=== PATIENT | female | born 1960 | race Caucasian/White ===

== ENCOUNTER 2016-02-16 01:27 | Emergency (ER) | payer MEDICAID ==
[2016-02-16 02:27] LABS: ABSOLUTE BASOPHILS # (AUTO) 0.1 10^3/uL (0.0-0.2); ABSOLUTE EOSINOPHILS # (AUTO) 0.2 10^3/uL (0.0-0.6); ABSOLUTE LYMPHOCYTES (AUTO) 0.9 10^3/uL (0.5-4.7); ABSOLUTE MONOCYTES (AUTO) 0.4 10^3/uL (0.1-1.4); ABSOLUTE NEUT (AUTO) 3.7 10^3/uL (1.7-8.2); BASOPHILS % (AUTO) 1.5 % (0-2); EOSINOPHILS % (AUTO) 3.3 % (0-6); HEMATOCRIT 34.6 % (36.0-47.0); HEMOGLOBIN 11.5 g/dL (12.0-15.5); HGB HCT DIFFERENCE -0.1; LYMPHOCYTES % (AUTO) 16.4 % (13-45); MEAN CORPUSCULAR HEMOGLOBIN 28.3 pg (27.0-33.4); MEAN CORPUSCULAR HGB CONC 33.3 g/dL (32.0-36.0); MEAN CORPUSCULAR VOLUME 85 fl (80-97); MONOCYTES % (AUTO) 8.1 % (3-13); RED BLOOD COUNT 4.07 10^6/uL (3.72-5.28); RED CELL DISTRIBUTION WIDTH 14.4 % (11.5-14.0); SEGMENTED NEUTROPHILS % (AUTO) 70.7 % (42-78); WHITE BLOOD COUNT 5.3 10^3/uL (4.0-10.5)
--- NOTE | 2016-02-16 02:30 | ER Document Report ---
ED General - General Chief Complaint: High Blood Pressure Stated Complaint: BLOOD PRESSURE PROBLEM Mode of Arrival: Ambulatory Information source: Patient Notes: Patient presents to the emergency department with complaints of blood pressure being up and reports she just had surgery. She reports she did not take her blood pressure at home but when she woke up her ear was pounding and her chest felt like it was pounding. This is how she usually feels when she has high blood pressure. Patient reports on February 11, 2016 she had the base of her left kidney partially removed via robotic surgery, due to a mass. She reports they thought it was cancer. She reports since that time she's felt shortness of breath especially when she walked. She denies fever vomiting diarrhea. She denies chest pain. She reports generalized abdominal pain that has not changed since she had the surgery. She also reports she thought she had a little bit of blood in her urine when she voided because she noted some pink on the toilet paper after she wiped. TRAVEL OUTSIDE OF THE [place] IN LAST 30 DAYS: No - HPI Onset: Other - 3 days Onset/Duration: Persistent Quality of pain: Achy Severity: Moderate Pain Level: 3 Associated symptoms: Shortness of breath Exacerbated by: Denies Relieved by: Denies Similar symptoms previously: No Recently seen / treated by doctor: Yes Past Medical History - General Information source: Patient - Social History Smoking Status: Unknown if Ever Smoked Cigarette use (# per day): No Frequency of alcohol use: None Drug Abuse: None Family History: None Patient has suicidal ideation: No Patient has homicidal ideation: No - Past Medical History Cardiac Medical History: Reports: Hx Hypertension Neurological Medical History: Reports: Hx Cerebrovascular Accident - 2007 Psychiatric Medical History: Reports: Hx Depression Past Surgical History: Reports: Hx Section - 1985, 2007, Hx Gynecologic Surgery - uterine ablasion/bladder tuck, Hx Kidney (Renal Surgery) - feb 11, 2016 partial kidney removed due to mass, Hx Orthopedic Surgery - Total knee replacement last month, Dr Josephine Vickers - Immunizations Hx Diphtheria, Pertussis, Tetanus Vaccination: Yes Hx Pneumococcal Vaccination: 02/09/00 Review of Systems - Review of Systems Notes: Review HPI for review of systems., All other systems negative Physical Exam - Vital signs Vitals: Temp Pulse Resp BP Pulse Ox 97.5 F 111 H 18 150/90 H 97 02/16/16 01:32 02/16/16 01:32 02/16/16 01:32 02/16/16 01:32 02/16/16 01:32 - Notes Notes: PHYSICAL EXAMINATION: GENERAL: Well-appearing and in no acute distress anxious HEAD: Atraumatic, normocephalic. EYES: Pupils equal round extraocular movements intact, sclera anicteric, conjunctiva are normal. ENT: nares patent, oropharynx clear without exudates. Moist mucous membranes. NECK: Normal range of motion, supple without lymphadenopathy LUNGS: CTAB and equal. No wheezes rales or rhonchi. HEART: Tachy without murmurs ABDOMEN: Soft, healing surgical incisions noted, c/o generalized ttp No guarding , no rebound BACK: Denies back pain EXTREMITIES: Normal range of motion, no pitting edema. No cyanosis. NEUROLOGICAL: Cranial nerves grossly intact. Normal sensory/motor PSYCH: Normal mood, normal affect. SKIN: Warm, Dry, normal turgor, no rashes or lesions noted Course - Re-evaluation Re-evalutation: 02/16/16 CT shows no PE but enlarged: Thyroid. Consulted Dr. Morrison he advised thyroid level. TSH and T4 within normal limits. Patient instructed on all results. She was instructed to follow up with survey manager for hematuria, fu with pcp for elevated BP and thyroid for biopsy. This was also written on her discharge instructions. Patient is talking in a clear voice no shortness of breath denies chest pain. - Vital Signs Vital signs: Temp Pulse Resp BP Pulse Ox 97.9 F 111 H 18 173/99 H 97 02/16/16 03:27 02/16/16 03:27 02/16/16 03:27 02/16/16 03:27 02/16/16 03:27 - Laboratory Result Diagrams: 02/16/16 02:10 02/16/16 02:10 Laboratory results interpreted by me: 02/16/16 02/16/16 02/16/16 02:10 02:10 02:10 Hgb 11.5 L Hct 34.6 L RDW 14.4 H Potassium 3.5 L Carbon Dioxide 33 H BUN 6 L AST 67 H ALT 61 H Albumin 3.3 L Urine Blood LARGE H - Diagnostic Test Radiology reviewed: Image reviewed, Reports reviewed - no PE, Enlarged thyroid noted Discharge - Discharge Clinical Impression: elevated blood pressure, Hematuria, Enlarged thyroid gland Condition: Stable Disposition: HOME, SELF-CARE Instructions: High Blood Pressure ([facility]), Hematuria ([facility]) Additional Instructions: *You have been evaluated for high blood pressure concerns, shortness of breath, hematuria , enlarged thyroid gland *Take your medication as prescribed *Monitor your blood pressure, keep a journal and take this journal to your primary care provider for medication adjustment as indicated *Follow up with your survey manager this week regarding the blood in your urine *Follow up with your primary care provider this week regarding your enlarged thyroid gland for biopsy Take the report with you to your pcp. Your TSH level was 1.06 your T4 level was. 1.97 *Return to ED for worsening condition, changes, needs *Return to ED if not better in 24 hours Forms: Elevated Blood Pressure Referrals: FIDE CHAVEZ MD [Primary Care Provider] - Follow up in 3-5 days
[2016-02-16 02:44] LABS: ALANINE AMINOTRANSFERASE 61 U/L (9-52); ALBUMIN 3.3 g/dL (3.5-5.0); ALKALINE PHOSPHATASE 99 U/L (38-126); ANION GAP 11 (5-19); ASPARTATE AMINO TRANSFERASE 67 U/L (14-36); BILIRUBIN,TOTAL 0.6 mg/dL (0.2-1.3); BLOOD UREA NITROGEN 6 mg/dL (7-20); CALCIUM 9.1 mg/dL (8.4-10.2); CARBON DIOXIDE 33 mmol/L (22-30); CHLORIDE 99 mmol/L (98-107); CREATININE RESULT 0.64 mg/dL (0.52-1.25); GLUCOSE 104 mg/dL (75-110); POTASSIUM 3.5 mmol/L (3.6-5.0); SODIUM 142.7 mmol/L (137-145); TOTAL PROTEIN 6.8 g/dL (6.3-8.2)
[2016-02-16 02:50] LABS: APPEARANCE,URINE CLEAR; BILIRUBIN,URINE NEGATIVE (NEGATIVE); GLUCOSE, URINE NEGATIVE (NEGATIVE); KETONES,URINE NEGATIVE (NEGATIVE); LEUKOCYTE ESTERASE,URINE NEGATIVE (NEGATIVE); NITRITE,URINE NEGATIVE (NEGATIVE); PROTEIN,URINE NEGATIVE (NEGATIVE); URINE SPECIFIC GRAVITY 1.005; UROBILINOGEN,URINE NEGATIVE mg/dL (<2.0)
[2016-02-16 04:54] LABS: THYROID STIMULATING HORMONE 1.06 uIU/mL (0.47-4.68)
[2016-02-16 05:27] VITALS: BP 158/91
== END 2016-02-16 05:27 | disposition home or self-care (01) ==
LOC: ER 01:27
DX: R03.0 Elevated blood-pressure reading, without diagnosis of hypertension (principal); R31.9 Hematuria, unspecified; E04.9 Nontoxic goiter, unspecified
CPT/HCPCS: 36415; 71275; 80053; 81001; 84439; 84443; 85025; 99284

== ENCOUNTER → 2016-03-10 | Outpatient (CLI) | payer MEDICAID ==
[2016-03-10 15:48] LABS: FREE T3 4.78 pg/mL (2.77-5.27)
[2016-03-10 16:02] LABS: THYROID STIMULATING HORMONE 0.17 uIU/mL (0.47-4.68)
[2016-03-12 07:08] LABS: THYROID PEROXIDASE (TPO) AB 9 IU/mL (0-34)
[2016-03-12 13:53] LABS: THYROGLOBULIN AB <1.0 IU/mL (0.0-0.9)
== END ==
LOC: OD 14:28
PROVIDERS: ATTEND Surgery
DX: E04.1 Nontoxic single thyroid nodule (principal)
CPT/HCPCS: 36415; 84439; 84443; 84481; 86376; 86800

== ENCOUNTER → 2016-07-01 | Outpatient (CLI) | payer MEDICAID ==
[2016-07-01 19:07] LABS: FREE T3 4.83 pg/mL (2.77-5.27)
[2016-07-01 19:21] LABS: THYROID STIMULATING HORMONE 0.82 uIU/mL (0.47-4.68)
== END ==
LOC: OD 16:44
PROVIDERS: ATTEND Surgery
DX: E04.2 Nontoxic multinodular goiter (principal)
CPT/HCPCS: 36415; 84439; 84443; 84481

== ENCOUNTER 2016-09-13 11:12 | Emergency (ER) | payer MEDICAID ==
--- NOTE | 2016-09-13 13:31 | ER Document Report ---
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 Francis presents with complaints of pain in the neck. Patient notes the symptoms have been ongoing now for at least 4 months over the past few days she feels like it is hurting her so she read online and became anxious and wanted to be evaluated Patient was seen by her surgeon 2 days ago TRAVEL OUTSIDE OF THE [place] IN LAST 30 DAYS: No - HPI Onset: Other Onset/Duration: Persistent Quality of pain: Achy Severity: Mild Pain Level: 1 Associated symptoms: Sore throat Exacerbated by: Food Relieved by: Denies Similar symptoms previously: Yes Recently seen / treated by doctor: Yes - Related Data Allergies/Adverse Reactions: No Known Allergies Allergy (Unverified 09/13/16 11:43) Past Medical History - Social History Smoking Status: Never Smoker Cigarette use (# per day): No Chew tobacco use (# tins/day): No Smoking Education Provided: No Family History: None Patient has suicidal ideation: No Patient has homicidal ideation: No - Past Medical History Cardiac Medical History: Reports: Hx Hypertension Neurological Medical History: Reports: Hx Cerebrovascular Accident - 2007 Renal/ Medical History: Denies: Hx Peritoneal Dialysis Psychiatric Medical History: Reports: Hx Depression Past Surgical History: Reports: Hx Section - 1985, 2007, Hx Gynecologic Surgery - uterine ablasion/bladder tuck, Hx Kidney (Renal Surgery) - feb 11, 2016 partial kidney removed due to mass, Hx Orthopedic Surgery - Total knee replacement last month, Dr Josephine Vickers - Immunizations Hx Diphtheria, Pertussis, Tetanus Vaccination: Yes Hx Pneumococcal Vaccination: 02/09/00 Review of Systems - Review of Systems Notes: REVIEW OF SYSTEMS: CONSTITUTIONAL : Denies fever, chills, or sweats. Denies recent illness. EENT: Admits to difficulties swallowing CARDIOVASCULAR: Denies chest pain. Denies palpitations or racing or irregular heart beat. Denies ankle edema. RESPIRATORY: Denies cough, cold, or chest congestion. Denies shortness of breath, difficulty breathing, or wheezing. GASTROINTESTINAL: Denies abdominal pain or distention. Denies nausea, vomiting , or diarrhea. Denies blood in vomitus, stools, or per rectum. Denies black, tarry stools. Denies constipation. GENITOURINARY: Denies difficulty urinating, painful urination, burning, frequency, blood in urine, or discharge. FEMALE GENITOURINARY: Denies vaginal bleeding, heavy or abnormal periods, irregular periods. Denies vaginal discharge or odor. MUSCULOSKELETAL: Denies back or neck pain or stiffness. Denies joint pain or swelling. SKIN: Denies rash, lesions or sores. HEMATOLOGIC : Denies easy bruising or bleeding. LYMPHATIC: Denies swollen, enlarged glands. NEUROLOGICAL: Denies confusion or altered mental status. Denies passing out or loss of consciousness. Denies dizziness or lightheadedness. Denies headache. Denies weakness or paralysis or loss of use of either side. Denies problems with gait or speech. Denies sensory loss, numbness, or tingling. Denies seizures. PSYCHIATRIC: Denies anxiety or stress. Denies depression, suicidal ideation, or homicidal ideation. ALL OTHER SYSTEMS REVIEWED AND NEGATIVE. PHYSICAL EXAMINATION: GENERAL: Well-appearing, well-nourished and in no acute distress. HEAD: Atraumatic, normocephalic. EYES: Pupils equal round and reactive to light, extraocular movements intact, conjunctiva are normal. ENT: no airway compromise, no stridor, NECK: Normal range of motion, thyroids appear enlarged LUNGS: Breath sounds clear to auscultation bilaterally and equal. No wheezes rales or rhonchi. HEART: Regular rate and rhythm without murmurs ABDOMEN: Soft, nontender, nondistended abdomen. No guarding, no rebound. No masses appreciated. Female : deferred Musculoskeletal: Normal range of motion, no pitting or edema. No cyanosis. NEUROLOGICAL: Cranial nerves grossly intact. Normal speech, normal gait. Normal sensory, motor exams PSYCH: Normal mood, normal affect. SKIN: Warm, Dry, normal turgor, no rashes or lesions noted. Dictation was performed using [employer] voice recognition software Physical Exam - Vital signs Vitals: Temp Pulse Resp BP Pulse Ox 98.3 F 88 16 149/90 H 98 09/13/16 11:38 09/13/16 11:38 09/13/16 11:38 09/13/16 11:38 09/13/16 11:38 Course - Re-evaluation Re-evalutation: 09/13/16 13:30 Ultrasound is pending as well as lab work. Patient otherwise is in no distress 09/13/16 15:12 Lab work noted no significant abnormality, heterogeneous enlargement noted of the right thyroid. Patient otherwise in no distress she will be given follow- up with her surgeon on Wednesday for reevaluation After performing a Medical Screening Examination, I estimate there is LOW risk for ACUTE CORONARY SYNDROME, RESPIRATORY FAILURE, SEPSIS OR MENINGITIS, thus I consider the discharge disposition reasonable. I have reevaluated this patient multiple times and no significant life threatening changes are noted. The patient and I have discussed the diagnosis and risks, and we agree with discharging home with close follow-up. We also discussed returning to the Emergency Department immediately if new or worsening symptoms occur. We have discussed the symptoms which are most concerning (e.g., changing or worsening pain, trouble swallowing or breathing, neck stiffness, fever) that necessitate immediate return. - Vital Signs Vital signs: Temp Pulse Resp BP Pulse Ox 98.3 F 88 16 149/90 H 98 09/13/16 11:38 09/13/16 11:38 09/13/16 11:38 09/13/16 11:38 09/13/16 11:38 - Laboratory Result Diagrams: 09/13/16 13:35 Laboratory results interpreted by me: 09/13/16 13:35 Hgb 11.8 L Hct 35.7 L RDW 16.6 H - Diagnostic Test Radiology reviewed: Image reviewed, Reports reviewed - report given to patient Discharge - Discharge Clinical Impression: Thyroid enlargement, Sore throat Condition: Stable Disposition: HOME, SELF-CARE Instructions: Thyroid Hormone ([facility]) Additional Instructions: Please follow up with Dr Francis on wednesday or return immediately if symptoms worsen
[2016-09-13 13:58] LABS: ABSOLUTE EOSINOPHILS # (AUTO) 0.2 10^3/uL (0.0-0.6); ABSOLUTE LYMPHOCYTES (AUTO) 1.6 10^3/uL (0.5-4.7); ABSOLUTE MONOCYTES (AUTO) 0.5 10^3/uL (0.1-1.4); ABSOLUTE NEUT (AUTO) 3.1 10^3/uL (1.7-8.2); BASOPHILS % (AUTO) 0.6 % (0-2); HEMATOCRIT 35.7 % (36.0-47.0); HEMOGLOBIN 11.8 g/dL (12.0-15.5); HGB HCT DIFFERENCE -0.3; LYMPHOCYTES % (AUTO) 29.9 % (13-45); MEAN CORPUSCULAR HEMOGLOBIN 29.3 pg (27.0-33.4); MEAN CORPUSCULAR HGB CONC 33.2 g/dL (32.0-36.0); MEAN CORPUSCULAR VOLUME 88 fl (80-97); MONOCYTES % (AUTO) 8.8 % (3-13); RED BLOOD COUNT 4.05 10^6/uL (3.72-5.28); RED CELL DISTRIBUTION WIDTH 16.6 % (11.5-14.0); SEGMENTED NEUTROPHILS % (AUTO) 57.7 % (42-78); WHITE BLOOD COUNT 5.3 10^3/uL (4.0-10.5)
--- NOTE | 2016-09-13 14:33 | RADIOLOGY REPORT (SQ) ---
EXAM DESCRIPTION: U/S THYROID/SFT TISS HD NECK COMPLETED DATE/TIME: 09/13/2016 2:24 pm REASON FOR STUDY: thyroid mass COMPARISON: None. TECHNIQUE: Dynamic and static glover-scale images acquired of the thyroid gland. Selected additional c olor/power Doppler images recorded. All images stored to PACS. LIMITATIONS: None. FINDINGS: RIGHT LOBE: Enlarged, measuring 3.5 x 7.4 cm. Diffuse heterogeneity. No cystic or solid masses. LEFT LOBE: Normal size. Heterogeneous echotexture. 1.6 x 2.5 cm heterogenous nodule. ISTHMUS: Normal size. Homogeneous echotexture. No cystic or solid masses. OTHER: No other significant finding. IMPRESSION: HETEROGENOUS THYROID WITH ENLARGEMENT OF THE RIGHT LOBE. 2.5 CM NODULE IN THE LEFT LOBE . TECHNICAL DOCUMENTATION: JOB ID: [id number] [email or web address]- All Rights Reserved
[2016-09-13 14:48] LABS: FREE T3 4.22 pg/mL (2.77-5.27)
[2016-09-13 15:02] LABS: THYROID STIMULATING HORMONE 0.62 uIU/mL (0.47-4.68)
[2016-09-13 15:24] VITALS: BP 113/74
== END 2016-09-13 15:26 | disposition home or self-care (01) ==
LOC: ER 11:12
DX: E04.9 Nontoxic goiter, unspecified (principal); M54.2 Cervicalgia; J02.9 Acute pharyngitis, unspecified; R13.10 Dysphagia, unspecified; I10 Essential (primary) hypertension
CPT/HCPCS: 36415; 76536; 84439; 84443; 84481; 85025; 99284

== ENCOUNTER 2016-09-27 19:57 | Emergency (ER) | payer MEDICAID ==
[2016-09-27 21:16] LABS: ABSOLUTE EOSINOPHILS # (AUTO) 0.1 10^3/uL (0.0-0.6); ABSOLUTE LYMPHOCYTES (AUTO) 1.7 10^3/uL (0.5-4.7); ABSOLUTE MONOCYTES (AUTO) 0.6 10^3/uL (0.1-1.4); ABSOLUTE NEUT (AUTO) 4.4 10^3/uL (1.7-8.2); BASOPHILS % (AUTO) 0.5 % (0-2); EOSINOPHILS % (AUTO) 1.7 % (0-6); HEMATOCRIT 36.9 % (36.0-47.0); HEMOGLOBIN 12.2 g/dL (12.0-15.5); HGB HCT DIFFERENCE -0.3; LYMPHOCYTES % (AUTO) 24.6 % (13-45); MEAN CORPUSCULAR HEMOGLOBIN 29.6 pg (27.0-33.4); MEAN CORPUSCULAR VOLUME 90 fl (80-97); MONOCYTES % (AUTO) 9.2 % (3-13); RED BLOOD COUNT 4.11 10^6/uL (3.72-5.28); RED CELL DISTRIBUTION WIDTH 16.6 % (11.5-14.0); WHITE BLOOD COUNT 6.8 10^3/uL (4.0-10.5)
[2016-09-27 21:19] LABS: APPEARANCE,URINE SLIGHTLY-CLOUDY; BILIRUBIN,URINE NEGATIVE (NEGATIVE); GLUCOSE, URINE 50 mg/dL (NEGATIVE); KETONES,URINE NEGATIVE (NEGATIVE); LEUKOCYTE ESTERASE,URINE NEGATIVE (NEGATIVE); NITRITE,URINE NEGATIVE (NEGATIVE); PROTEIN,URINE NEGATIVE (NEGATIVE); URINE SPECIFIC GRAVITY 1.019; UROBILINOGEN,URINE NEGATIVE mg/dL (<2.0)
[2016-09-27 21:20] LABS: ALANINE AMINOTRANSFERASE 84 U/L (9-52); ALBUMIN 4.3 g/dL (3.5-5.0); ALKALINE PHOSPHATASE 87 U/L (38-126); ANION GAP 12 (5-19); ASPARTATE AMINO TRANSFERASE 70 U/L (14-36); BILIRUBIN,DIRECT 0.4 mg/dL (0.0-0.4); BILIRUBIN,TOTAL 0.5 mg/dL (0.2-1.3); BLOOD UREA NITROGEN 14 mg/dL (7-20); CARBON DIOXIDE 30 mmol/L (22-30); CHLORIDE 100 mmol/L (98-107); CREATININE RESULT 0.88 mg/dL (0.52-1.25); GLUCOSE 96 mg/dL (75-110); LIPASE 349.5 U/L (23-300); SODIUM 141.9 mmol/L (137-145)
--- NOTE | 2016-09-27 22:46 | ER Document Report ---
ED General - General Chief Complaint: Abdominal Pain Stated Complaint: SIDE,ABDOMINAL PAIN Time Seen by Provider: 09/27/16 21:26 Notes: Patient is a 56-year-old female who presents with concerns of feeling generally fatigued and intermittent diffuse lower abdominal pain. Patient states she was hospitalized at [place] at [facility] several days ago and just discharged 36 hours ago for acute kidney found the setting of severe dehydration. States return to work today but did not feel she was yet ready to return to work, felt exhausted the entire time and then came here after she became lightheaded. She has not had any vomiting or diarrhea. No chest pain or shortness of breath. Denies any abdominal pain at time of assessment. Nothing seemed to improve or worsen her symptoms. She has not seen a primary care doctor regarding today's concerns. TRAVEL OUTSIDE OF THE [place] IN LAST 30 DAYS: No - Related Data Allergies/Adverse Reactions: No Known Allergies Allergy (Unverified 09/13/16 11:43) Past Medical History - General Information source: Patient - Social History Smoking Status: Never Smoker Chew tobacco use (# tins/day): No Frequency of alcohol use: None Drug Abuse: None Lives with: Alone Family History: Reviewed & Not Pertinent - Past Medical History Cardiac Medical History: Reports: Hx Hypertension Neurological Medical History: Reports: Hx Cerebrovascular Accident - 2007 Renal/ Medical History: Denies: Hx Peritoneal Dialysis Psychiatric Medical History: Reports: Hx Depression Past Surgical History: Reports: Hx Section - 1985, 2007, Hx Gynecologic Surgery - uterine ablasion/bladder tuck, Hx Kidney (Renal Surgery) - feb 11, 2016 partial kidney removed due to mass, Hx Orthopedic Surgery - Total knee replacement last month, Dr Josephine Vickers - Immunizations Hx Diphtheria, Pertussis, Tetanus Vaccination: Yes Hx Pneumococcal Vaccination: 02/09/00 Review of Systems - Review of Systems Notes: Constitutional: Negative for fever. HENT: Negative for sore throat. Eyes: Negative for visual changes. Cardiovascular: Negative for chest pain. Respiratory: Negative for shortness of breath. Gastrointestinal: Positive for abdominal pain now resolved Genitourinary: Negative for dysuria. Musculoskeletal: Negative for back pain. Skin: Negative for rash. Neurological: Negative for headaches, weakness or numbness. 10 point ROS negative except as marked above and in HPI. Physical Exam - Vital signs Vitals: Temp Pulse Resp BP Pulse Ox 98.1 F 80 18 136/72 H 98 09/27/16 23:09 09/27/16 23:09 09/27/16 23:09 09/27/16 23:09 09/27/16 23:09 Interpretation: Normal Notes: PHYSICAL EXAMINATION: GENERAL: Well-appearing, well-nourished and in no acute distress. HEAD: Atraumatic, normocephalic. EYES: Pupils equal round and reactive to light, extraocular movements intact, sclera anicteric, conjunctiva are normal. ENT: nares patent, oropharynx clear without exudates. Moist mucous membranes. NECK: Normal range of motion, supple without lymphadenopathy LUNGS: Breath sounds clear to auscultation bilaterally and equal. No wheezes rales or rhonchi. HEART: Regular rate and rhythm without murmurs ABDOMEN: Soft, nontender, normoactive bowel sounds. No guarding, no rebound. No masses appreciated. EXTREMITIES: Normal range of motion, no pitting or edema. No cyanosis. NEUROLOGICAL: No focal neurological deficits. Moves all extremities spontaneously and on command. PSYCH: Normal mood, normal affect. SKIN: Warm, Dry, normal turgor, no rashes or lesions noted. Course - Re-evaluation Re-evalutation: 09/27/16 22:45 Patient presents with multiple vague complaints that did not appear to be concerning for any acute life-threatening pathology. Her main concern appears to be that she continues to feel exhausted after recent hospitalization and has not had adequate time to recover since that hospitalization [facility] for dehydration and acute kidney failure. Labs unremarkable today with exception of a very mildly elevated lipase and mildly elevated LFTs which do not appear clinically significant given her examination. Although triage report does note a complaint of abdominal pain patient denies this to me and has no focal abdominal tenderness. Vitals are within normal limits at triage and at time of discharge. Physical examination is unremarkable. Patient has tolerated oral intake without difficulty. Patient was not noted to be in distress at any point during their ER visit. At this time, based on the reassuring evaluation, I do not suspect an acute CO, pulmonary embolus, aortic dissection, acute intra-abdominal pathology, stroke, or sepsis.Will discharge with return precautions and follow-up recommendations. Verbal discharge instructions given a the bedside and opportunity for questions given. Medication warnings reviewed. Patient is in agreement with this plan and has verbalized understanding of return precautions and the need for primary care follow-up in the next 24-72 hours. - Vital Signs Vital signs: Temp Pulse Resp BP Pulse Ox 98.1 F 80 18 136/72 H 98 09/27/16 23:09 09/27/16 23:09 09/27/16 23:09 09/27/16 23:09 09/27/16 23:09 - Laboratory Result Diagrams: 09/27/16 20:55 09/27/16 20:55 Laboratory results interpreted by me: 09/27/16 09/27/16 09/27/16 20:40 20:55 20:55 RDW 16.6 H AST 70 H ALT 84 H Lipase 349.5 H Urine Glucose (UA) 50 H Discharge - Discharge Clinical Impression: Fatigue Qualifiers: Fatigue type: unspecified Qualified Code(s): R53.83 - Other fatigue Abdominal pain Qualifiers: Abdominal location: generalized Qualified Code(s): R10.84 - Generalized abdominal pain Condition: Good Disposition: HOME, SELF-CARE Additional Instructions: Please return to the emergency room immediately if you experience any concerning symptoms including high fevers, severe headache, chest pain, difficulty breathing, abdominal pain, slurred speech, numbness or weakness in your arms or legs, or any other symptom that concerns you. Forms: Return to Work Referrals: FIDE CHAVEZ MD [Primary Care Provider] - Follow up as needed
[2016-09-27 23:10] VITALS: BP 136/72
== END 2016-09-27 23:11 | disposition home or self-care (01) ==
LOC: ER 19:57
DX: R53.83 Other fatigue (principal); R10.84 Generalized abdominal pain; R42 Dizziness and giddiness; I10 Essential (primary) hypertension; Z90.5 Acquired absence of kidney; R74.8 Abnormal levels of other serum enzymes
CPT/HCPCS: 36415; 80053; 81001; 83690; 85025; 99284

== ENCOUNTER 2016-12-06 12:17 | Emergency (ER) | payer MEDICAID ==
--- NOTE | 2016-12-06 12:35 | ER Document Report ---
ED Medical Screen (RME) - General Chief Complaint: Flank Pain Stated Complaint: FLANK PAIN Time Seen by Provider: 12/06/16 12:31 TRAVEL OUTSIDE OF THE [place] IN LAST 30 DAYS: No - HPI Patient complains to provider of: Left flank pain, tingling in her hands, heaviness in her feet Notes: 12/06/16 12:35 Patient is a 56-year-old female presenting to the emergency room today complaining of left flank pain that started yesterday, with tingling sensation in her right arm and hand, and heaviness to her feet - Related Data Allergies/Adverse Reactions: No Known Allergies Allergy (Unverified 09/13/16 11:43) Past Medical History - Past Medical History Cardiac Medical History: Reports: Hx Hypertension Neurological Medical History: Reports: Hx Cerebrovascular Accident - 2007 Renal/ Medical History: Denies: Hx Peritoneal Dialysis Psychiatric Medical History: Reports: Hx Depression Past Surgical History: Reports: Hx Section - 2007, Hx Gynecologic Surgery - uterine ablasion/bladder tuck, Hx Kidney (Renal Surgery) - feb 11, 2016 partial kidney removed due to mass, Hx Orthopedic Surgery - Total knee replacement last month, Dr Josephine Vickers - Immunizations Hx Diphtheria, Pertussis, Tetanus Vaccination: Yes Physical Exam - Vital signs Vitals: Temp Pulse Resp BP Pulse Ox 98.0 F 76 18 167/97 H 95 12/06/16 12:28 12/06/16 12:28 12/06/16 12:28 12/06/16 12:28 12/06/16 12:28 Course - Vital Signs Vital signs: Temp Pulse Resp BP Pulse Ox 98.0 F 76 18 167/97 H 95 12/06/16 12:28 12/06/16 12:28 12/06/16 12:28 12/06/16 12:28 12/06/16 12:28
--- NOTE | 2016-12-06 13:07 | ER Document Report ---
ED General - General Chief Complaint: Flank Pain Stated Complaint: FLANK PAIN Time Seen by Provider: 12/06/16 12:31 Mode of Arrival: Ambulatory Information source: Patient TRAVEL OUTSIDE OF THE [place] IN LAST 30 DAYS: No - HPI Onset: Yesterday Onset/Duration: Gradual Quality of pain: Dull Associated symptoms: None Exacerbated by: Denies Relieved by: Denies Similar symptoms previously: Yes Recently seen / treated by doctor: No Notes: Patient is a 56-year-old female who says she has had left flank pain are mainly since yesterday. Patient states several months ago she developed temporary renal failure due to not eating and drinking well. She is concerned that her renal issues have returned and that is the source of her flank pain. Denies any vomiting or diarrhea. No fevers or chills. Denies any urinary complaints. Patient also reports intermittent episodes of numbness and tingling to her hands and feet for some time now. No motor complaints. - Related Data Allergies/Adverse Reactions: No Known Allergies Allergy (Unverified 09/13/16 11:43) Past Medical History - General Information source: Patient - Social History Smoking Status: Never Smoker Chew tobacco use (# tins/day): No Frequency of alcohol use: None Drug Abuse: None Family History: Reviewed & Not Pertinent Patient has suicidal ideation: No Patient has homicidal ideation: No - Past Medical History Cardiac Medical History: Reports: Hx Hypertension Neurological Medical History: Reports: Hx Cerebrovascular Accident - 2007 Renal/ Medical History: Denies: Hx Peritoneal Dialysis Psychiatric Medical History: Reports: Hx Depression Past Surgical History: Reports: Hx Section - 2007, Hx Gynecologic Surgery - uterine ablasion/bladder tuck, Hx Kidney (Renal Surgery) - feb 11, 2016 partial kidney removed due to mass, Hx Orthopedic Surgery - Total knee replacement last month, Dr Josephine Vickers - Immunizations Hx Diphtheria, Pertussis, Tetanus Vaccination: Yes Hx Pneumococcal Vaccination: 02/09/00 Review of Systems - Review of Systems Genitourinary: Flank pain Neurological/Psychological: Tingling -: Yes All other systems reviewed and negative Physical Exam - Vital signs Vitals: Temp Pulse Resp BP Pulse Ox 98.0 F 76 18 167/97 H 95 12/06/16 12:28 12/06/16 12:28 12/06/16 12:28 12/06/16 12:28 12/06/16 12:28 Interpretation: Normal - General General appearance: Appears well, Alert - HEENT Head: Normocephalic, Atraumatic Eyes: Normal Pupils: PERRL - Respiratory Respiratory status: No respiratory distress Chest status: Nontender Breath sounds: Normal Chest palpation: Normal - Cardiovascular Rhythm: Regular Heart sounds: Normal auscultation Murmur: No - Abdominal Inspection: Normal Distension: No distension Bowel sounds: Normal Tenderness: Nontender Organomegaly: No organomegaly - Back Back: Normal, Nontender - Extremities General upper extremity: Normal inspection, Nontender, Normal color, Normal ROM , Normal temperature General lower extremity: Normal inspection, Nontender, Normal color, Normal ROM , Normal temperature, Normal weight bearing. No: Radha's sign - Neurological Neuro grossly intact: Yes Cognition: Normal Orientation: AAOx4 Macy Coma Scale Eye Opening: Spontaneous Macy Coma Scale Verbal: Oriented Arabella Coma Scale Motor: Obeys Commands Arabella Coma Scale Total: 15 Speech: Normal Motor strength normal: LUE, RUE, LLE, RLE Sensory: Normal - Psychological Associated symptoms: Normal affect, Normal mood - Skin Skin Temperature: Warm Skin Moisture: Dry Skin Color: Normal Course - Re-evaluation Re-evalutation: 12/06/16 13:50 Laboratory studies reviewed and discussed with patient. She has a benign abdominal exam and imaging is not indicated at this time. Patient was most concerned about her renal function and her BUN/creatinine along with urine are all normal. Patient will follow up with her primary care doctor. - Vital Signs Vital signs: Temp Pulse Resp BP Pulse Ox 98.0 F 76 18 167/97 H 95 12/06/16 12:28 12/06/16 12:28 12/06/16 12:28 12/06/16 12:28 12/06/16 12:28 - Laboratory Result Diagrams: 12/06/16 12:42 12/06/16 12:42 Laboratory results interpreted by me: 12/06/16 12/06/16 12:42 12:42 RDW 14.4 H Carbon Dioxide 31 H AST 44 H Discharge - Discharge Clinical Impression: Flank pain Condition: Good Disposition: HOME, SELF-CARE Instructions: Flank Pain ([facility]) Additional Instructions: Follow-up with your primary care provider. Return to the emergency department if worse or for any other problems.
[2016-12-06 13:10] LABS: APPEARANCE,URINE CLEAR; BILIRUBIN,URINE NEGATIVE (NEGATIVE); GLUCOSE, URINE NEGATIVE (NEGATIVE); KETONES,URINE NEGATIVE (NEGATIVE); LEUKOCYTE ESTERASE,URINE NEGATIVE (NEGATIVE); NITRITE,URINE NEGATIVE (NEGATIVE); PROTEIN,URINE NEGATIVE (NEGATIVE); URINE SPECIFIC GRAVITY 1.011; UROBILINOGEN,URINE NEGATIVE mg/dL (<2.0)
[2016-12-06 13:42] LABS: ABSOLUTE BASOPHILS # (AUTO) 0.1 10^3/uL (0.0-0.2); ABSOLUTE EOSINOPHILS # (AUTO) 0.1 10^3/uL (0.0-0.6); ABSOLUTE LYMPHOCYTES (AUTO) 1.3 10^3/uL (0.5-4.7); ABSOLUTE MONOCYTES (AUTO) 0.4 10^3/uL (0.1-1.4); ABSOLUTE NEUT (AUTO) 2.3 10^3/uL (1.7-8.2); BASOPHILS % (AUTO) 1.2 % (0-2); HEMATOCRIT 37.4 % (36.0-47.0); HEMOGLOBIN 12.1 g/dL (12.0-15.5); HGB HCT DIFFERENCE -1.1; LYMPHOCYTES % (AUTO) 30.6 % (13-45); MEAN CORPUSCULAR HEMOGLOBIN 28.2 pg (27.0-33.4); MEAN CORPUSCULAR HGB CONC 32.4 g/dL (32.0-36.0); MEAN CORPUSCULAR VOLUME 87 fl (80-97); MONOCYTES % (AUTO) 9.7 % (3-13); RED BLOOD COUNT 4.29 10^6/uL (3.72-5.28); RED CELL DISTRIBUTION WIDTH 14.4 % (11.5-14.0); SEGMENTED NEUTROPHILS % (AUTO) 55.5 % (42-78); WHITE BLOOD COUNT 4.1 10^3/uL (4.0-10.5)
[2016-12-06 13:49] LABS: ALANINE AMINOTRANSFERASE 46 U/L (9-52); ALKALINE PHOSPHATASE 80 U/L (38-126); ANION GAP 11 (5-19); ASPARTATE AMINO TRANSFERASE 44 U/L (14-36); BILIRUBIN,DIRECT 0.3 mg/dL (0.0-0.4); BILIRUBIN,TOTAL 0.4 mg/dL (0.2-1.3); BLOOD UREA NITROGEN 12 mg/dL (7-20); CALCIUM 9.6 mg/dL (8.4-10.2); CARBON DIOXIDE 31 mmol/L (22-30); CHLORIDE 102 mmol/L (98-107); CREATININE RESULT 0.79 mg/dL (0.52-1.25); GLUCOSE 104 mg/dL (75-110); LIPASE 283.9 U/L (23-300); POTASSIUM 4.2 mmol/L (3.6-5.0); TOTAL PROTEIN 7.6 g/dL (6.3-8.2)
[2016-12-06 14:05] VITALS: BP 148/69
== END 2016-12-06 14:03 | disposition home or self-care (01) ==
LOC: ER 12:17
DX: R10.9 Unspecified abdominal pain (principal); R20.0 Anesthesia of skin; R20.2 Paresthesia of skin; I10 Essential (primary) hypertension; Z90.5 Acquired absence of kidney; Z86.73 Personal history of transient ischemic attack (TIA), and cerebral infarction without residual deficits
CPT/HCPCS: 36415; 80053; 81001; 83690; 85025; 87086; 99284

== ENCOUNTER 2017-01-06 05:15 | Inpatient (IN) | payer MEDICAID ==
[2016-12-29 12:41] LABS: HEMATOCRIT 38.1 % (36.0-47.0); HEMOGLOBIN 12.6 g/dL (12.0-15.5); HGB HCT DIFFERENCE -0.3; MEAN CORPUSCULAR HEMOGLOBIN 28.1 pg (27.0-33.4); MEAN CORPUSCULAR VOLUME 85 fl (80-97); RED BLOOD COUNT 4.47 10^6/uL (3.72-5.28)
[2016-12-29 13:05] LABS: ANION GAP 12 (5-19); BLOOD UREA NITROGEN 11 mg/dL (7-20); CALCIUM 9.5 mg/dL (8.4-10.2); CARBON DIOXIDE 29 mmol/L (22-30); CHLORIDE 103 mmol/L (98-107); CREATININE RESULT 0.76 mg/dL (0.52-1.25); GLUCOSE 94 mg/dL (75-110); POTASSIUM 4.3 mmol/L (3.6-5.0); SODIUM 144.2 mmol/L (137-145)
--- NOTE | 2016-12-29 21:18 | EKG REPORT ---
SEVERITY:- ABNORMAL ECG - SINUS RHYTHM VENTRICULAR PREMATURE COMPLEX CONSIDER LEFT VENTRICULAR HYPERTROPHY BORDERLINE PROLONGED QT INTERVAL : Confirmed by: Amy Mendieta MD 29-Dec-2016 21:16:32
[~2017-01-06 05:15] MED LIST: LACTATED RINGERS 1000 ML IV PRN
[2017-01-06] MEDS ORDERED: MICROFIBRILLAR COLLAGEN 1 GM PACK ONE ×2 (06:30→07:21)
[2017-01-06] MEDS ORDERED: FENTANYL CITRATE INJ/PF 100 MCG/2 ML AMPUL ONE (06:55)
[2017-01-06] MEDS ORDERED: HYDROMORPHONE HCL INJ/PF 2 MG/ML AMPULE ONE (06:55)
[2017-01-06] MEDS ORDERED: ACETAMINOPHEN 100 ML IV ONE (06:56)
[2017-01-06] MEDS ORDERED: DEXMEDETOMIDINE INJ 80 MCG/20 ML VIAL IV ONE (06:56)
[2017-01-06] MEDS ORDERED: PROPOFOL INJ 200 MG/20 ML VIAL IV ONE (06:56)
[2017-01-06] MEDS ORDERED: MIDAZOLAM 2 MG/2 ML INJ ONE (06:56)
[2017-01-06] MEDS ORDERED: EPHEDRINE SULFATE INJ 50 MG/1 ML AMPULE ONE (06:56)
[2017-01-06] MEDS: CEFAZOLIN 1 GM/D5W RTU 1 GM/50 ML RTUPB IV PRN ×2 (07:45→13:57)
[2017-01-06] MEDS ORDERED: ONDANSETRON HCL INJ/PF 4 MG/2 ML SDV IV PRN ×2 (11:02→11:34)
[2017-01-06] MEDS ORDERED: MEPERIDINE HCL/PF INJ 25 MG/1 ML DISP.SYRIN IV PRN (11:02)
[2017-01-06] MEDS ORDERED: PROMETHAZINE HCL INJ 25 MG/1 ML VIAL IV PRN ×2 (11:02)
[2017-01-06] MEDS ORDERED: DIPHENHYDRAMINE HCL 50 MG/ML VIAL IV PRN (11:02)
[2017-01-06] MEDS ORDERED: MORPHINE SULFATE 10 MG/ML INJ IV PRN (11:02)
[2017-01-06] MEDS ORDERED: FENTANYL CITRATE INJ/PF 100 MCG/2 ML AMPUL IV PRN ×3 (11:02)
--- NOTE | 2017-01-06 11:29 | Operative Report ---
Operative Report DATE OF SURGERY: 01/06/17 PREOPERATIVE DIAGNOSIS: 1. Multinodular goiter with compressive symptoms. 2. Nodule left thyroid lobe, atypia of undetermined significance POSTOPERATIVE DIAGNOSIS: Same OPERATION: Total thyroidectomy with isthmusectomy SURGEON: DESMOND FAULKNER FIELD ORGANIZER: LUI REGAN ANESTHESIA: GA TISSUE REMOVED OR ALTERED: Left thyroid lobe; right thyroid lobe with goiter sent in portions COMPLICATIONS: None ESTIMATED BLOOD LOSS: EBL 75 cc INTRAOPERATIVE FINDINGS: See below PROCEDURE: The patient was seen in the preop holding area where her neck was marked for a planned open transcervical neck exploration. She was then taken to the operating room where general anesthesia was induced. The arms were tucked, neck extended, the patient placed in the semi-benson's position. There was excellent exposure to the neck. Graph we did perform intraoperative ultrasonography demonstrating the large multinodular goiter occupying the majority of the right thyroid lobe, very small diminutive isthmus, and a average size left thyroid lobe with intra-drinkable central nodule. Note the trachea was markedly deviated to the patient's left. The patient's neck was then prepped and draped in sterile fashion, and instrumentation set up for open thyroidectomy. Local plan and surgical timeout were conducted. The neck was open to a standard 7 cm transcervical incision approximately 4 fingerbreadths above the sternal notch, approximately 1/2-2 fingerbreadths below the cricoid cartilage. We elevated the superior and inferior skin and platysma flaps as a unit in the standard fashion. Strap muscles were opened in midline. Because of the preoperative diagnosis of the left thyroid nodule, with atypia of undetermined significance, as the classification 3, we felt priority of the would be the left thyroid lobectomy first. The sternohyoid and sternothyroid muscles elevated cleanly off of the left thyroid lobe. With gentle traction on the lobe medially, we proceeded to take off the surrounding layer of fatty tissue which was somewhat in this patient, and noted throughout believe the intramuscular layers but throughout the entire dissection of the patient's neck. We mobilized divided the middle thyroid vein. We took the inferior pole off of its attachments: The left inferior parathyroid gland not directly visualized. A suitable site for division of the isthmus was identified and the isthmus very somewhat attenuated was divided with electrocautery. Superior pole vessels were identified, with excellent lateral and cephalad retraction of the sternal thyroid muscle. Superior thyroid artery and vein branch vessels were divided between clips. We worked in a circumferential fashion mobilizing the somewhat lobulated but particularly enlarged left thyroid lobe. There were moderate adhesions between more lateral anterior surface of the trachea and the posterior surface of the left thyroid lobe. We did not directly see the left recurrent laryngeal nerve however we stayed right on gland during the entire dissection. Area pole of mobilized, and the lateral attachments going towards the ligament of Mariscal were finally teased out and . Left upper parathyroid gland was felt to be in a small pod of fatty tissue; branch vessels to this area were preserved. Eventually the specimen was suspended strictly from its point of attachment to the medial side of the ligament of Mariscal. Final attachments were freed up and the specimen was removed of clips and sent to pathology. It was examined by Dr. Pillai and felt to contain an intraparenchymal 2 cm cystic like nodule consistent with previous fine-needle aspiration artifact. Hemostasis was felt to be satisfactorily at this point in the left neck. We changed positions of surgeon and reference assistant and now undertook the right lobectomy. The right lobe of the fairly normal upper pole and mid body Mitch, and then a very large multicystic goiter. We stayed directly on the gland and worked in a circumferential fashion carefully elevating the strap muscles off the anterior and lateral surface of the lobe. We got up underneath the lobe very carefully, again teasing away each and every band that was splayed out t over the lateral and posterior surface of the right lobe. WE did not encounter the right recurrent laryngeal nerve directly. The right lobe came off of the trachea uneventfully. The superior pole vessels were taken down their branch points right on the hand proper. Right upper parathyroid gland was felt to be in a fatty tissue and was left undisturbed. Branch vessels from the inferior thyroid artery were divided right on the oral aspect of the thyroid lobe. He ended up mobilizing the goitrous component entirely under direct visualization. This was a large goiter which in fact was extending partially underneath the trachea towards the retrosternal area. Eventually was freed up and mobilized so that it could be divided from the more normal- appearing thyroid parenchyma superior aspect of the lobe. The goitrous component was passed off to pathology. We now worked on the parenchymal permanent, dissecting it out a circumferential fashion again taking it off of the trachea uneventfully. Of note we did leave approximately 1-1/2-2 cm sliver of the right tissue adjacent to bERRYS ligament; the reason for this was the tissue here was quite distorted, with a lot of fibrous tissue, and edema, and we acknowledged that we were likely not dealing with a malignancy. Once this component was freed up, it was sent with the goitrous component all as right thyroid lobe. Clips from specimen were removed to ease processing. Again on the right side the recurrent laryngeal nerve was not directly visualized. We now spent approximately 20 minutes police and the wound checking for bleeders and there were no mechanical bleeding sites identified. Clips were felt to be in satisfactory position. Neck was taken out of extension, and Avitene placed in the recess of the wound. Strap muscles and platysma closed with 2-0 and 3-0 Vicryl skin approximated with 3-0 Vicryl, Dermabond glue. Patient was extubated, taken to recovery room stable condition. The physician reference assistant, Ms. Ramires, provided assistance during this case by: Assisting retracting tissue, instillation of local anesthesia and closure of skin incisions.
[2017-01-06] MEDS ORDERED: KETOROLAC TROMETHAMINE INJ/PF 30 MG/1 ML SDV IV PRN (11:34)
[2017-01-06] MEDS: FENTANYL CITRATE INJ/PF 100 MCG/2 ML AMPUL ONE ×2 (11:49→11:55)
[2017-01-06] MEDS ORDERED: DEXAMETHASONE SOD PHOSPHATE INJ 4 MG/1 ML VIAL ONE (12:12)
[2017-01-06] MEDS ORDERED: LIDOCAINE 2% INJ-PF (20 MG/ML) 2 ML AMPUL ONE (12:12)
[2017-01-06] MEDS ORDERED: METOCLOPRAMIDE HCL INJ/PF 10 MG/2 ML SDV ONE (12:12)
[2017-01-06] MEDS ORDERED: ONDANSETRON HCL INJ/PF 4 MG/2 ML SDV ONE (12:12)
[2017-01-06] MEDS ORDERED: SUCCINYLCHOLINE CHLORIDE INJ 200 MG/10 ML VIAL ONE (12:12)
[2017-01-06] MEDS ORDERED: GLYCOPYRROLATE INJ 0.4 MG/2 ML VIAL ONE (12:12)
[2017-01-06] MEDS ORDERED: PHENYLEPHRINE HCL INJ/PF 10 MG/1 ML SDV ONE (12:12)
[2017-01-06] MEDS ORDERED: KETOROLAC TROMETHAMINE INJ/PF 30 MG/1 ML SDV ONE (12:59)
[2017-01-06] MEDS: DEXTROSE 5%-LACTATED RINGERS 1,000 ML IV PRN ×2 (13:57→14:08)
[2017-01-06] MEDS: KETOROLAC TROMETHAMINE INJ/PF 30 MG/1 ML SDV IV PRN ×2 (14:08→22:52)
[2017-01-06] MEDS ORDERED: INFLUENZA ADLT QUAD (36MOS+) 2017-18 VAC 0.5 ML SYR IM PRN (14:09)
[2017-01-06] MEDS ORDERED: MORPHINE SULFATE 10 MG/ML INJ ONE (18:38)
[2017-01-06] MEDS ORDERED: MORPHINE SULFATE 10 MG/ML INJ IV ONE (19:30)
[2017-01-07] MEDS ORDERED: LEVOTHYROXINE SODIUM 0.112 MG TABLET PO SCH (06:00)
[2017-01-07] MEDS ORDERED: LEVOTHYROXINE SODIUM 0.025 MG TABLET PO SCH (06:00)
[2017-01-07] MEDS: KETOROLAC TROMETHAMINE INJ/PF 30 MG/1 ML SDV IV PRN (06:45)
[2017-01-07 11:46] VITALS: BP 175/97
== END 2017-01-07 12:16 | disposition home or self-care (01) | DRG 627 ==
LOC: INOR 05:15 → 4W 13:22
PROVIDERS: ADMIT Surgery; ATTEND Surgery
PROC: 0GTJ0ZZ Resection of Thyroid Gland Isthmus, Open Approach (ICD-10-PCS; 2017-01-06)
PROC: 0GTK0ZZ Resection of Thyroid Gland, Open Approach (ICD-10-PCS; principal; 2017-01-06 07:30)
DX: E04.2 Nontoxic multinodular goiter (principal); I10 Essential (primary) hypertension; E78.00 Pure hypercholesterolemia, unspecified; R63.5 Abnormal weight gain; F41.9 Anxiety disorder, unspecified; Z85.528 Personal history of other malignant neoplasm of kidney
CPT/HCPCS: 320; 36415; 80048; 82310; 84100; 84132; 84703; 85027; 88307; 90686; 93005; 93010; 94799; J0131; J0330; J0690; J1100; J1170; J1885; J2250; J2270; J2370; J2405; J2704; J2765; J3010; J3490

== ENCOUNTER → 2017-01-28 | Outpatient (CLI) | payer MEDICAID ==
[2017-01-28 14:51] LABS: FREE T3 4.28 pg/mL (2.77-5.27)
[2017-01-28 15:05] LABS: THYROID STIMULATING HORMONE 0.1 uIU/mL (0.47-4.68)
== END ==
LOC: OD 13:28
PROVIDERS: ATTEND Physician Assistant Surgical
DX: E89.0 Postprocedural hypothyroidism (principal)
CPT/HCPCS: 36415; 84439; 84443; 84481

== ENCOUNTER 2017-04-29 17:03 | Emergency (ER) | payer MEDICAID ==
--- NOTE | 2017-04-29 19:24 | ER Document Report ---
ED General - General Chief Complaint: Flank Pain Stated Complaint: FLANK PAIN Time Seen by Provider: 04/29/17 18:15 Mode of Arrival: Ambulatory Information source: Patient Notes: 56-year-old female history of left sided partial nephrectomy a few years ago presents with complaints of left flank pain after doing some heavy lifting. 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 Patient denies any urinary symptoms TRAVEL OUTSIDE OF THE [place] IN LAST 30 DAYS: No - HPI Onset: Just prior to arrival Onset/Duration: Sudden Quality of pain: Achy Severity: Mild Pain Level: 1 Associated symptoms: Other Exacerbated by: Movement Relieved by: Denies Similar symptoms previously: No Recently seen / treated by doctor: No - Related Data Allergies/Adverse Reactions: No Known Allergies Allergy (Verified 12/29/16 10:56) Past Medical History - Social History Smoking Status: Never Smoker Cigarette use (# per day): No Chew tobacco use (# tins/day): No Smoking Education Provided: No Frequency of alcohol use: None Drug Abuse: None Family History: Reviewed & Not Pertinent Patient has suicidal ideation: No Patient has homicidal ideation: No - Past Medical History Cardiac Medical History: Reports: Hx Hypertension Denies: Hx Atrial Fibrillation, Hx Congestive Heart Failure, Hx Coronary Artery Disease, Hx Heart Attack, Hx Hypercholesterolemia, Hx Peripheral Vascular Disease, Hx Pulmonary Embolism, Hx Heart Murmur Pulmonary Medical History: Reports: Hx Sleep Apnea - NO MACHINE Denies: Hx Asthma, Hx Bronchitis, Hx Pneumonia, Hx Respiratory Failure, Hx Tuberculosis Neurological Medical History: Reports: Hx Cerebrovascular Accident - 2007 Endocrine Medical History: Denies: Hx Graves' Disease, Hx Hyperthyroidism, Hx Hypothyroidism Renal/ Medical History: Denies: Hx End Stage Renal Disease, Hx Kidney Stones, Hx Ovarian Cysts, Hx Peritoneal Dialysis, Hx Pelvic Inflammatory Disease Malignancy Medical History: Denies: Hx Breast Cancer, Hx Cervical Cancer, Hx Lung Cancer, Hx Ovarian Cancer Musculoskeltal Medical History: Denies Hx Arthritis, Denies Hx Fibromyalgia, Denies Hx Muscular Dystrophy Psychiatric Medical History: Denies: Hx Bipolar Disorder, Hx Depression, Hx Post Traumatic Stress Disorder , Hx Schizophrenia Traumatic Medical History: Denies: Hx Fractures Past Surgical History: Reports: Hx Section - X1, Hx Gynecologic Surgery - uterine ablasion/bladder tuck, Hx Kidney (Renal Surgery) - feb 11, 2016 partial kidney removed due to mass, Hx Neurologic Surgery - partial left nephrectomy, Hx Orthopedic Surgery - tkr. left and right, Hx Thyroid Surgery. Denies: Hx Appendectomy, Hx Bowel Surgery, Hx Cholecystectomy, Hx Coronary Artery Bypass Graft, Hx Gastric Bypass Surgery, Hx Herniorrhaphy, Hx Hysterectomy, Hx Mastectomy, Hx Pacemaker, Hx Tonsillectomy, Hx Tubal Ligation - Immunizations Hx Diphtheria, Pertussis, Tetanus Vaccination: Yes Hx Pneumococcal Vaccination: 02/09/00 Review of Systems - Review of Systems Notes: REVIEW OF SYSTEMS: CONSTITUTIONAL : Denies fever, chills, or sweats. Denies recent illness. EENT: Denies eye, ear, throat, or mouth pain or symptoms. Denies nasal or sinus congestion or discharge. Denies throat, tongue, or mouth swelling or difficulty swallowing. CARDIOVASCULAR: Denies chest pain. Denies palpitations or racing or irregular heart beat. Denies ankle edema. RESPIRATORY: Denies cough, cold, or chest congestion. Denies shortness of breath, difficulty breathing, or wheezing. GASTROINTESTINAL: Admits to left flank pain GENITOURINARY: Denies difficulty urinating, painful urination, burning, frequency, blood in urine, or discharge. FEMALE GENITOURINARY: Denies vaginal bleeding, heavy or abnormal periods, irregular periods. Denies vaginal discharge or odor. MUSCULOSKELETAL: Denies back or neck pain or stiffness. Denies joint pain or swelling. SKIN: Denies rash, lesions or sores. HEMATOLOGIC : Denies easy bruising or bleeding. LYMPHATIC: Denies swollen, enlarged glands. NEUROLOGICAL: Denies confusion or altered mental status. Denies passing out or loss of consciousness. Denies dizziness or lightheadedness. Denies headache. Denies weakness or paralysis or loss of use of either side. Denies problems with gait or speech. Denies sensory loss, numbness, or tingling. Denies seizures. PSYCHIATRIC: Denies anxiety or stress. Denies depression, suicidal ideation, or homicidal ideation. ALL OTHER SYSTEMS REVIEWED AND NEGATIVE. PHYSICAL EXAMINATION: GENERAL: Well-appearing, well-nourished and in no acute distress. HEAD: Atraumatic, normocephalic. EYES: Pupils equal round and reactive to light, extraocular movements intact, conjunctiva are normal. ENT: Nares patent, oropharynx clear without exudates. Moist mucous membranes. NECK: Normal range of motion, supple without lymphadenopathy LUNGS: Breath sounds clear to auscultation bilaterally and equal. No wheezes rales or rhonchi. HEART: Regular rate and rhythm without murmurs ABDOMEN: Soft, nontender, nondistended abdomen. No guarding, no rebound. No masses appreciated. Female : deferred Musculoskeletal: Normal range of motion, no pitting or edema. No cyanosis. NEUROLOGICAL: Cranial nerves grossly intact. Normal speech, normal gait. Normal sensory, motor exams PSYCH: Normal mood, normal affect. SKIN: Warm, Dry, normal turgor, no rashes or lesions noted. Dictation was performed using [employer] voice recognition software Physical Exam - Vital signs Vitals: Temp Pulse Resp BP Pulse Ox 98.1 F 86 16 183/100 H 100 04/29/17 17:35 04/29/17 17:35 04/29/17 17:35 04/29/17 17:35 04/29/17 17:35 Course - Re-evaluation Re-evalutation: 04/29/17 19:24 Patient examination is extremely benign she overall looks patient is in no distress lab work pending I will perform a CT to rule out any other abnormality 04/29/17 20:11 CT lab was noted no significant abnormality partial nephrectomy is noted patient overall looks well is in no distress will be discharged home with extremely close follow-up After performing a Medical Screening Examination, I estimate there is LOW risk for ACUTE APPENDICITIS, BOWEL OBSTRUCTION, ACUTE CHOLECYSTITIS, PERFORATED DIVERTICULITIS, INCARCERATED HERNIA, PANCREATITIS, PELVIC INFLAMMATORY DISEASE, PERFORATED ULCER, ECTOPIC , or TUBO-OVARIAN ABSCESS, thus I consider the discharge disposition reasonable. Also, there is no evidence or peritonitis , sepsis, or toxicity. I have reevaluated this patient multiple times and no significant life threatening changes are noted. The patient and I have discussed the diagnosis and risks, and we agree with discharging home with close follow-up with the understanding that symptoms and presentations can change. We also discussed returning to the Emergency Department immediately if new or worsening symptoms occur. We have discussed the symptoms which are most concerning (e.g., bloody stool, fever, changing or worsening pain, vomiting) that necessitate immediate return. - Vital Signs Vital signs: Temp Pulse Resp BP Pulse Ox 98.1 F 86 16 183/100 H 100 04/29/17 17:35 04/29/17 17:35 04/29/17 17:35 04/29/17 17:35 04/29/17 17:35 - Laboratory Result Diagrams: 04/29/17 19:00 04/29/17 19:00 Laboratory results interpreted by me: 04/29/17 04/29/17 04/29/17 17:15 19:00 19:00 RDW 14.7 H Carbon Dioxide 32 H AST 78 H ALT 85 H Urine Urobilinogen 2.0 H - Diagnostic Test Radiology reviewed: Image reviewed, Reports reviewed - report given to the patient Discharge - Discharge Clinical Impression: Flank pain, Hx of partial nephrectomy Condition: Stable Disposition: HOME, SELF-CARE Instructions: Abdominal Pain ([facility]) Referrals: FIDE CHAVEZ MD [Primary Care Provider] - Follow up tomorrow
--- NOTE | 2017-04-29 19:34 | RADIOLOGY REPORT (SQ) ---
EXAM DESCRIPTION: CT LTD RENAL STONE PROTOCOL ON COMPLETED DATE/TIME: 04/29/2017 7:19 pm REASON FOR STUDY: left partial nephrectomy, pain COMPARISON: 02/16/2016 TECHNIQUE: CT scan of the abdomen and pelvis performed without intravenous or oral contrast. Images reviewed with lung, soft tissue, and bone windows. Reconstructed coronal and sagittal MPR images revi ewed. All images stored on PACS. All CT scanners at this facility use dose modulation, iterative reconstruction, and/or weight based d osing when appropriate to reduce radiation dose to as low as reasonably achievable (ALARA). [facility]: Dose Right [facility]: CareDose [facility]: Dose Right [facility]: Teradose 4D [facility]: Smart Kwarter RADIATION DOSE: CT Rad equipment meets quality standard of care and radiation dose reduction techniq ues were employed. CTDIvol: 18.4 mGy. DLP: 993 mGy-cm.mGy. LIMITATIONS: None. FINDINGS: LOWER CHEST: No acute findings. NON-CONTRASTED LIVER, SPLEEN, ADRENALS: Evaluation limited by lack of IV contrast. No identified sign ificant masses. PANCREAS: No masses. No peripancreatic inflammatory changes. GALLBLADDER: No identified stones by CT criteria. No inflammatory changes to suggest cholecystitis. RIGHT KIDNEY AND URETER: No suspicious masses. Assessment limited by lack of IV contrast. No signif icant calcifications. No hydronephrosis or hydroureter. LEFT KIDNEY AND URETER: Partial upper pole nephrectomy. No suspicious masses. Assessment limited by lack of IV contrast. Small parenchymal calcifications. No hydronephrosis or hydroureter. AORTA AND RETROPERITONEUM: No aneurysm. Similar upper retroperitoneal adenopathy. BOWEL AND PERITONEAL CAVITY: No obvious masses or inflammatory changes. No free fluid. APPENDIX: Normal. PELVIS, BLADDER, AND ABDOMINAL WALL:No abnormal masses. No free fluid. Bladder normal. BONES: No acute findings. OTHER: No other significant finding. IMPRESSION: NO ACUTE PROCESS IN THE ABDOMEN OR PELVIS. COMMENT: Quality ID # [id number]: Final reports with documentation of one or more dose reduction techniques (e.g., Automated exposure control, adjustment of the mA and/or kV according to patient size, use of iterative reconstruction technique) TECHNICAL DOCUMENTATION: JOB ID: [id number] [place]-72 2010 [employer]- All Rights Reserved Reading location - IP/workstation name: [email or web address]
[2017-04-29 19:39] LABS: ABSOLUTE EOSINOPHILS # (AUTO) 0.2 10^3/uL (0.0-0.6); ABSOLUTE MONOCYTES (AUTO) 0.7 10^3/uL (0.1-1.4); ABSOLUTE NEUT (AUTO) 2.4 10^3/uL (1.7-8.2); BASOPHILS % (AUTO) 0.7 % (0-2); EOSINOPHILS % (AUTO) 2.8 % (0-6); HEMATOCRIT 40.2 % (36.0-47.0); LYMPHOCYTES % (AUTO) 38.1 % (13-45); MEAN CORPUSCULAR HEMOGLOBIN 28.1 pg (27.0-33.4); MEAN CORPUSCULAR HGB CONC 32.3 g/dL (32.0-36.0); MEAN CORPUSCULAR VOLUME 87 fl (80-97); MONOCYTES % (AUTO) 12.6 % (3-13); PLATELET COUNT 225 10^3/uL (150-450); RED BLOOD COUNT 4.63 10^6/uL (3.72-5.28); RED CELL DISTRIBUTION WIDTH 14.7 % (11.5-14.0); SEGMENTED NEUTROPHILS % (AUTO) 45.8 % (42-78); TOTAL CELLS COUNTED % (AUTO) 100 %; WHITE BLOOD COUNT 5.3 10^3/uL (4.0-10.5)
[2017-04-29 19:53] LABS: APPEARANCE,URINE SLIGHTLY-CLOUDY; BILIRUBIN,URINE NEGATIVE (NEGATIVE); COLOR,URINE YELLOW; GLUCOSE, URINE NEGATIVE (NEGATIVE); KETONES,URINE NEGATIVE (NEGATIVE); LEUKOCYTE ESTERASE,URINE NEGATIVE (NEGATIVE); NITRITE,URINE NEGATIVE (NEGATIVE); PROTEIN,URINE NEGATIVE (NEGATIVE); URINE SPECIFIC GRAVITY 1.023
[2017-04-29 19:54] LABS: ALANINE AMINOTRANSFERASE 85 U/L (9-52); ALBUMIN 4.2 g/dL (3.5-5.0); ALKALINE PHOSPHATASE 62 U/L (38-126); ANION GAP 8 (5-19); ASPARTATE AMINO TRANSFERASE 78 U/L (14-36); BILIRUBIN,DIRECT 0.3 mg/dL (0.0-0.4); BILIRUBIN,TOTAL 0.5 mg/dL (0.2-1.3); BLOOD UREA NITROGEN 14 mg/dL (7-20); CALCIUM 9.9 mg/dL (8.4-10.2); CARBON DIOXIDE 32 mmol/L (22-30); CHLORIDE 100 mmol/L (98-107); GLUCOSE 81 mg/dL (75-110); POTASSIUM 4.4 mmol/L (3.6-5.0); SODIUM 139.5 mmol/L (137-145)
[2017-04-29 20:26] VITALS: BP 172/87
== END 2017-04-29 20:20 | disposition home or self-care (01) ==
LOC: ER 17:03
DX: R10.9 Unspecified abdominal pain (principal); I10 Essential (primary) hypertension; Z90.5 Acquired absence of kidney; Z86.73 Personal history of transient ischemic attack (TIA), and cerebral infarction without residual deficits; Z96.653 Presence of artificial knee joint, bilateral
CPT/HCPCS: 36415; 76380; 80053; 81001; 81025; 85025; 99284

== ENCOUNTER 2017-08-06 14:12 | Emergency (ER) | payer MEDICAID ==
[2017-08-06] MEDS ORDERED: ONDANSETRON HCL INJ/PF 4 MG/2 ML SDV IV ONE (14:39)
[2017-08-06] MEDS ORDERED: ONDANSETRON 4 MG TAB.RAPDIS PO ONE (14:39)
[2017-08-06] MEDS ORDERED: ACETAMINOPHEN 325 MG TABLET PO ONE (14:39)
--- NOTE | 2017-08-06 14:39 | ER Document Report ---
ED Medical Screen (RME) - General Chief Complaint: Abdominal Pain Stated Complaint: ABDOMINAL PAIN Time Seen by Provider: 08/06/17 14:34 Notes: RAPID MEDICAL EVALUATION DISCLOSURE I have seen this patient as part of a Rapid Medical Evaluation and, if applicable, placed any initially appropriate orders. The patient will be seen and fully evaluated, including a full history and physical exam, by a provider ( in Main ED or Fast Track) when a room becomes available. 56-year-old female here with complaints of blood on the toilet paper when she wipes, dysuria, as well as lower abdominal pain ongoing for the past few days. She is not sure if the blood is coming from the urine or from her vagina. She has not tried anything for the symptoms. She does not have any side or back pain. She does have some nausea but no vomiting or diarrhea. She has had UTI in the past and this feels similar. EXAM No CVA TTP There is mild suprapubic TTP No peritoneal signs TRAVEL OUTSIDE OF THE [place] IN LAST 30 DAYS: No - Related Data Allergies/Adverse Reactions: No Known Allergies Allergy (Verified 08/06/17 14:18) Past Medical History - Social History Chew tobacco use (# tins/day): No Frequency of alcohol use: None Drug Abuse: None - Past Medical History Cardiac Medical History: Reports: Hx Hypertension Denies: Hx Atrial Fibrillation, Hx Congestive Heart Failure, Hx Coronary Artery Disease, Hx Heart Attack, Hx Hypercholesterolemia, Hx Peripheral Vascular Disease, Hx Pulmonary Embolism, Hx Heart Murmur Pulmonary Medical History: Reports: Hx Sleep Apnea - NO MACHINE Denies: Hx Asthma, Hx Bronchitis, Hx Pneumonia, Hx Respiratory Failure, Hx Tuberculosis Neurological Medical History: Reports: Hx Cerebrovascular Accident - 2007 Endocrine Medical History: Denies: Hx Graves' Disease, Hx Hyperthyroidism, Hx Hypothyroidism Renal/ Medical History: Denies: Hx End Stage Renal Disease, Hx Kidney Stones, Hx Ovarian Cysts, Hx Peritoneal Dialysis, Hx Pelvic Inflammatory Disease Malignancy Medical History: Denies: Hx Breast Cancer, Hx Cervical Cancer, Hx Lung Cancer, Hx Ovarian Cancer Musculoskeltal Medical History: Denies Hx Arthritis, Denies Hx Fibromyalgia, Denies Hx Muscular Dystrophy Psychiatric Medical History: Denies: Hx Bipolar Disorder, Hx Depression, Hx Post Traumatic Stress Disorder , Hx Schizophrenia Traumatic Medical History: Denies: Hx Fractures Past Surgical History: Reports: Hx Section - X1, Hx Gynecologic Surgery - uterine ablasion/bladder tuck, Hx Kidney (Renal Surgery) - feb 11, 2016 partial kidney removed due to mass, Hx Neurologic Surgery - partial left nephrectomy, Hx Orthopedic Surgery - tkr. left and right, Hx Thyroid Surgery. Denies: Hx Appendectomy, Hx Bowel Surgery, Hx Cholecystectomy, Hx Coronary Artery Bypass Graft, Hx Gastric Bypass Surgery, Hx Herniorrhaphy, Hx Hysterectomy, Hx Mastectomy, Hx Pacemaker, Hx Tonsillectomy, Hx Tubal Ligation - Immunizations Hx Diphtheria, Pertussis, Tetanus Vaccination: Yes History of Influenza Vaccine for 11/2016 - 04/2017 Season: No Physical Exam - Vital signs Vitals: Temp Pulse Resp BP Pulse Ox 98.3 F 83 16 159/104 H 97 08/06/17 14:25 08/06/17 14:25 08/06/17 14:25 08/06/17 14:25 08/06/17 14:25 Course - Vital Signs Vital signs: Temp Pulse Resp BP Pulse Ox 98.3 F 83 16 159/104 H 97 08/06/17 14:25 08/06/17 14:25 08/06/17 14:25 08/06/17 14:25 08/06/17 14:25 Doctor's Discharge - Discharge Referrals: FIDE CHAVEZ MD [Primary Care Provider] - Follow up as needed
[2017-08-06 15:11] LABS: ABSOLUTE EOSINOPHILS # (AUTO) 0.1 10^3/uL (0.0-0.6); ABSOLUTE LYMPHOCYTES (AUTO) 1.7 10^3/uL (0.5-4.7); ABSOLUTE MONOCYTES (AUTO) 0.4 10^3/uL (0.1-1.4); ABSOLUTE NEUT (AUTO) 2.8 10^3/uL (1.7-8.2); BASOPHILS % (AUTO) 0.7 % (0-2); EOSINOPHILS % (AUTO) 2.5 % (0-6); HEMATOCRIT 41.9 % (36.0-47.0); HEMOGLOBIN 13.7 g/dL (12.0-15.5); LYMPHOCYTES % (AUTO) 33.4 % (13-45); MEAN CORPUSCULAR HGB CONC 32.7 g/dL (32.0-36.0); MEAN CORPUSCULAR VOLUME 89 fl (80-97); MONOCYTES % (AUTO) 7.8 % (3-13); PLATELET COUNT 209 10^3/uL (150-450); RED BLOOD COUNT 4.72 10^6/uL (3.72-5.28); RED CELL DISTRIBUTION WIDTH 15.8 % (11.5-14.0); SEGMENTED NEUTROPHILS % (AUTO) 55.6 % (42-78); TOTAL CELLS COUNTED % (AUTO) 100 %; WHITE BLOOD COUNT 5.1 10^3/uL (4.0-10.5)
[2017-08-06 15:20] LABS: APPEARANCE,URINE CLEAR; BILIRUBIN,URINE NEGATIVE (NEGATIVE); COLOR,URINE YELLOW; GLUCOSE, URINE NEGATIVE (NEGATIVE); KETONES,URINE NEGATIVE (NEGATIVE); LEUKOCYTE ESTERASE,URINE NEGATIVE (NEGATIVE); NITRITE,URINE NEGATIVE (NEGATIVE); PROTEIN,URINE NEGATIVE (NEGATIVE); URINE SPECIFIC GRAVITY 1.023; UROBILINOGEN,URINE NEGATIVE mg/dL (<2.0)
[2017-08-06 15:36] LABS: ANION GAP 13 (5-19); BLOOD UREA NITROGEN 16 mg/dL (7-20); CALCIUM 10.1 mg/dL (8.4-10.2); CARBON DIOXIDE 33 mmol/L (22-30); CHLORIDE 100 mmol/L (98-107); GLUCOSE 92 mg/dL (75-110); POTASSIUM 3.5 mmol/L (3.6-5.0); SODIUM 146.1 mmol/L (137-145)
[2017-08-06] MEDS ORDERED: AZITHROMYCIN 250 MG TABLET PO ONE (15:43)
[2017-08-06] MEDS ORDERED: CEFTRIAXONE INJ 250 MG VIAL IM ONE (15:43)
[2017-08-06] MEDS ORDERED: LIDOCAINE 1% INJ-PF (10 MG/ML) 30 ML SDV INFIL ONE (15:47)
[2017-08-06 15:51] LABS: ALANINE AMINOTRANSFERASE 81 U/L (9-52); ALBUMIN 4.6 g/dL (3.5-5.0); ALKALINE PHOSPHATASE 69 U/L (38-126); ASPARTATE AMINO TRANSFERASE 81 U/L (14-36); BILIRUBIN,DIRECT 0.5 mg/dL (0.0-0.4); BILIRUBIN,TOTAL 0.6 mg/dL (0.2-1.3); LIPASE 147.8 U/L (23-300); TOTAL PROTEIN 8.9 g/dL (6.3-8.2)
--- NOTE | 2017-08-06 15:52 | ER Document Report ---
ED GI/ - General Chief Complaint: Abdominal Pain Stated Complaint: ABDOMINAL PAIN Time Seen by Provider: 08/06/17 14:34 Mode of Arrival: Ambulatory Information source: Patient TRAVEL OUTSIDE OF THE [place] IN LAST 30 DAYS: No - HPI Patient complains to provider of: Abdominal pain Notes: 08/06/17 15:49 Patient is here with complaints of abdominal pain. The patient states that she has had pain in her lower abdomen for the last 3 or 4 days. The pain seems to be intermittent. Nothing in particular seems to make it better or worse. She does report having a new sexual partner and is not sure if he is completely monogamous with her. She states that over the last few days she has noticed a small amount of vaginal spotting. She denies any bleeding currently. She does complain of some mild dysuria. She denies any vaginal discharge but she does complaints of vaginal irritation. She denies any nausea, vomiting, diarrhea. No fever. No flank pain. No chest pain or shortness of breath. No rash. She has had prior . She denies any other complaints at this time. - Related Data Allergies/Adverse Reactions: No Known Allergies Allergy (Verified 08/06/17 14:18) Past Medical History - Social History Smoking Status: Never Smoker Chew tobacco use (# tins/day): No Frequency of alcohol use: None Drug Abuse: None Family History: Reviewed & Not Pertinent Patient has suicidal ideation: No Patient has homicidal ideation: No - Past Medical History Cardiac Medical History: Reports: Hx Hypertension Denies: Hx Atrial Fibrillation, Hx Congestive Heart Failure, Hx Coronary Artery Disease, Hx Heart Attack, Hx Hypercholesterolemia, Hx Peripheral Vascular Disease, Hx Pulmonary Embolism, Hx Heart Murmur Pulmonary Medical History: Reports: Hx Sleep Apnea - NO MACHINE Denies: Hx Asthma, Hx Bronchitis, Hx Pneumonia, Hx Respiratory Failure, Hx Tuberculosis Neurological Medical History: Reports: Hx Cerebrovascular Accident - 2007 Endocrine Medical History: Denies: Hx Graves' Disease, Hx Hyperthyroidism, Hx Hypothyroidism Renal/ Medical History: Denies: Hx End Stage Renal Disease, Hx Kidney Stones, Hx Ovarian Cysts, Hx Peritoneal Dialysis, Hx Pelvic Inflammatory Disease Malignancy Medical History: Denies: Hx Breast Cancer, Hx Cervical Cancer, Hx Lung Cancer, Hx Ovarian Cancer Musculoskeltal Medical History: Denies Hx Arthritis, Denies Hx Fibromyalgia, Denies Hx Muscular Dystrophy Psychiatric Medical History: Denies: Hx Bipolar Disorder, Hx Depression, Hx Post Traumatic Stress Disorder , Hx Schizophrenia Traumatic Medical History: Denies: Hx Fractures Past Surgical History: Reports: Hx Section - X1, Hx Gynecologic Surgery - uterine ablasion/bladder tuck, Hx Kidney (Renal Surgery) - feb 11, 2016 partial kidney removed due to mass, Hx Neurologic Surgery - partial left nephrectomy, Hx Orthopedic Surgery - tkr. left and right, Hx Thyroid Surgery. Denies: Hx Appendectomy, Hx Bowel Surgery, Hx Cholecystectomy, Hx Coronary Artery Bypass Graft, Hx Gastric Bypass Surgery, Hx Herniorrhaphy, Hx Hysterectomy, Hx Mastectomy, Hx Pacemaker, Hx Tonsillectomy, Hx Tubal Ligation - Immunizations Hx Diphtheria, Pertussis, Tetanus Vaccination: Yes Hx Pneumococcal Vaccination: 02/09/00 Review of Systems - Review of Systems -: Yes All other systems reviewed and negative Physical Exam - Vital signs Vitals: Temp Pulse Resp BP Pulse Ox 98.3 F 83 16 159/104 H 97 08/06/17 14:25 08/06/17 14:25 08/06/17 14:25 08/06/17 14:25 08/06/17 14:25 - Notes Notes: GENERAL: alert, cooperative, nontoxic, no distress. HEAD: normocephalic, atraumatic EYES: conjunctiva pink without discharge, no external redness or swelling. EARS: no external swelling, no external redness NOSE: atraumatic, no external swelling MOUTH/THROAT: mucous membranes moist and pink, posterior pharynx without erythema, swelling, exudate. No trismus or drooling. NECK: soft, supple, full range of motion, no meningismus. CHEST: no distress, lungs clear and equal throughout. No wheezing, rales, rhonchi. CARDIAC: regular rate and rhythm, no murmur, normal capillary refill, normal pulses. No peripheral edema noted. ABDOMEN: Soft, tenderness to palpation of the right lower quadrant. Mild voluntary guarding. No rebound tenderness. No mass. BACK: full range of motion, no CVA tenderness. EXTREMITIES: full range of motion of all extremities. No redness, no swelling. NEURO: alert and oriented x 3, no focal deficits, full range of motion of all extremities. PYSCH: appropriate mood, affect. Patient is cooperative. SKIN: pink, warm, dry, no rash. : Performed with female field training agent at the bedside. No external lesions. Cervix is closed. There is no active bleeding and no blood in the vaginal vault. Small amount of thin white vaginal discharge. No cervical motion tenderness. No adnexal tenderness or masses on my main exam. Course - Re-evaluation Re-evalutation: 08/06/17 17:59 Patient is here with complaints of some intermittent lower abdominal pain for the last 3-4 days with some associated vaginal spotting. She denies any severe pain currently. She denies any significant vaginal bleeding currently. She is in a new sexual relationship. She states that she does use protection. She has noticed a small amount of odor from her vaginal area over the last few days as well. On exam she has some tenderness to her lower abdomen. No significant pelvic tenderness on exam. She was noted to have small amount of vaginal discharge and her wet prep is positive for bacterial vaginosis. Gonorrhea and Chlamydia are negative. Urinalysis is negative for obvious infection. Urine is negative. White count is normal. Chemistries are unremarkable for significant abnormalities. She is noted to have a slight elevation in her LFTs, but in reviewing her records, this has been present in the past. CT of the abdomen and pelvis with IV contrast due to her lower abdominal tenderness is negative for acute findings including appendicitis. Patient looks well at this time. She will be discharged home with prescription for Naprosyn as well as Flagyl. Follow-up with her primary care doctor if not better in the next 3- 5 days, sooner for worsening pain, fever, persistent vomiting, or any further concerns. The patient is noted to have elevated blood pressure during today's emergency department visit. The patient was informed of this finding. The patient was instructed that this may be related to pre-hypertension and requires further evaluation with a primary care provider. The patient has no hypertensive symptoms at this time. The patient's emergency department workup and current diagnosis were explained to the patient and or family. Follow-up instructions were provided. Medications if prescribed were discussed. Instructions for when to return to the emergency department including specific worrisome symptoms were discussed with the patient and/or family. - Vital Signs Vital signs: Temp Pulse Resp BP Pulse Ox 98.3 F 83 16 159/104 H 97 08/06/17 14:25 08/06/17 14:25 08/06/17 14:25 08/06/17 14:25 08/06/17 14:25 - Laboratory Result Diagrams: 08/06/17 14:50 08/06/17 14:50 Laboratory results interpreted by me: 08/06/17 08/06/17 08/06/17 14:50 14:50 14:50 RDW 15.8 H Sodium 146.1 H Potassium 3.5 L Carbon Dioxide 33 H Est GFR (Non-Af Amer) 56 L Direct Bilirubin 0.5 H AST 81 H ALT 81 H Total Protein 8.9 H - Diagnostic Test Radiology reviewed: Image reviewed, Reports reviewed - CT abdomen pelvis with no acute findings. Discharge - Discharge Clinical Impression: Bacterial vaginosis Abdominal pain Qualifiers: Abdominal location: lower abdomen, unspecified Qualified Code(s): R10.30 - Lower abdominal pain, unspecified Condition: Stable Disposition: HOME, SELF-CARE Instructions: Abdominal Pain ([facility]), Vaginosis, Bacterial ([facility]) Additional Instructions: Take medication as prescribed. Do not drink alcohol while taking the Flagyl. Follow-up with your doctor if not better in the next 3-5 days, sooner for worsening pain, fever, persistent vomiting, chest pain or difficulty breathing, or for any further concerns. Your blood pressure was elevated during today's visit. Have this rechecked with your doctor. Prescriptions: Metronidazole [Flagyl 500 mg Tablet] 500 mg PO Q6H #28 tablet Naproxen [Naprosyn] 500 mg PO BID #20 tablet Forms: Elevated Blood Pressure, Smoking Cessation Education Referrals: FIDE CHAVEZ MD [Primary Care Provider] - Follow up as needed
[2017-08-06 16:11] LABS: BACTERIA (WET MOUNT) 3+ BACTERIA SEEN; EPITHELIALS (WET MOUNT) 3+ EPITHELIALS SEEN; T.VAGINALIS (WET MOUNT) NO TRICHOMONAS SEEN; WBCS (WET MOUNT) RARE WBCS SEEN; YEAST (WET MOUNT) NO YEAST SEEN
[2017-08-06 17:37] LABS: CHLAM PCR NOT DETECTED (NOT DETECT); GON PCR NOT DETECTED (NOT DETECT)
--- NOTE | 2017-08-06 17:41 | RADIOLOGY REPORT (SQ) ---
EXAM DESCRIPTION: CT ABD/PELVIS WITH IV ONLY COMPLETED DATE/TIME: 08/06/2017 5:28 pm REASON FOR STUDY: rlq pain COMPARISON: None. TECHNIQUE: CT scan of the abdomen and pelvis performed using helical scanning technique with dynamic intravenous contrast injection. No oral contrast. Images reviewed with lung, soft tissue, and bone windows. Reconstructed coronal and sagittal MPR images reviewed. Delayed images for evaluation of the urinary system also acquired. All images stored on PACS. All CT scanners at this facility use dose modulation, iterative reconstruction, and/or weight based d osing when appropriate to reduce radiation dose to as low as reasonably achievable (ALARA). [facility]: Dose Right [facility]: CareDose [facility]: Dose Right [facility]: Teradose 4D [facility]: ForeUp CONTRAST TYPE AND DOSE: contrast/concentration: Isovue 370.00 mg/ml; Total Contrast Delivered: 98.0 ml; Total Saline Delivered: 51.0 ml RENAL FUNCTION: BUN 16 creatinine 1 RADIATION DOSE: CT Rad equipment meets quality standard of care and radiation dose reduction techniq ues were employed. CTDIvol: 19.2 - 20.8 mGy. DLP: 2082 mGy-cm.. LIMITATIONS: None. FINDINGS: LOWER CHEST: No significant findings. No nodules or infiltrates. LIVER: Normal size. No masses. No dilated ducts. SPLEEN: Normal size. No focal lesions. PANCREAS: No masses. No significant calcifications. No adjacent inflammation or peripancreatic fluid collections. Pancreatic duct not dilated. GALLBLADDER: No identified stones by CT criteria. No inflammatory changes to suggest cholecystitis. ADRENAL GLANDS: No significant masses or asymmetry. RIGHT KIDNEY AND URETER: No solid masses. No significant calcifications. No hydronephrosis or hyd roureter. LEFT KIDNEY AND URETER: No solid masses. No significant calcifications. No hydronephrosis or hydr oureter. AORTA AND VESSELS: No aneurysm. No dissection. Renal arteries, SMA, celiac without stenosis. RETROPERITONEUM: No retroperitoneal adenopathy, hemorrhage or masses. BOWEL AND PERITONEAL CAVITY: No masses or inflammatory changes. No free fluid or peritoneal masses. APPENDIX: Normal. PELVIS: No mass. No free fluid. Normal bladder. ABDOMINAL WALL: No masses. No hernias. BONES: No significant or acute findings. OTHER: No other significant finding. IMPRESSION: NO SIGNIFICANT OR ACUTE FINDING IN THE ABDOMEN OR PELVIS ON CT SCAN WITH IV CONTRAST. TECHNICAL DOCUMENTATION: JOB ID: [id number] Quality ID # [id number]: Final reports with documentation of one or more dose reduction techniques (e.g., Au tomated exposure control, adjustment of the mA and/or kV according to patient size, use of iterative reconstruction technique) 2010 [id number]- All Rights Reserved Reading location - IP/workstation name: [email or web address]
[2017-08-06 18:17] VITALS: BP 123/68
[2017-08-07] MEDS ORDERED: ACETAMINOPHEN 325 MG TABLET PO PRN (10:35)
[2017-08-07] MEDS ORDERED: NORMAL SALINE 1000 ML 1,000 ML IV PRN (10:35)
[2017-08-07] MEDS ORDERED: CLINDAMYCIN HCL 150 MG CAPSULE PO SCH (14:00)
== END 2017-08-06 18:17 | disposition home or self-care (01) ==
LOC: ER 14:12
DX: N76.0 Acute vaginitis (principal); B96.89 Other specified bacterial agents as the cause of diseases classified elsewhere; R10.30 Lower abdominal pain, unspecified; I10 Essential (primary) hypertension; Z96.653 Presence of artificial knee joint, bilateral
CPT/HCPCS: 99284; 96372; 36415; 87210; 83690; 85025; 81025; 80076; 80048; 81001; 87491; 87591; 74177; J3490 ×2; Q0144; S0119; J0696

== ENCOUNTER 2018-02-06 19:26 | Emergency (ER) | payer MEDICAID, MEDICARE ==
[2018-02-06] MEDS ORDERED: LIDOCAINE 2% VISCOUS SOLN 20 ML UDCUP PO ONE (19:57)
[2018-02-06] MEDS ORDERED: ACETAMINOPHEN 325 MG TABLET PO ONE (19:57)
--- NOTE | 2018-02-06 19:58 | ER Document Report ---
HPI - HPI Patient complains to provider of: sore throat Time Seen by Provider: 02/06/18 19:45 Onset: Other - 2 days Onset/Duration: Gradual Quality of pain: Achy Pain Level: 5 Context: Patient presents complaining of sore throat and bilateral ear pain for the past 2 days. Patient denies any fever. Patient reports mild cough that started 2 days ago. Patient is concerned she may have strep throat. Associated Symptoms: Nonproductive cough, Earache, Rhinnorhea, Sore throat. denies: Fever, Nausea Exacerbated by: Denies Relieved by: Denies Similar symptoms previously: Yes Recently seen / treated by doctor: No - ROS ROS below otherwise negative: Yes Systems Reviewed and Negative: Yes All other systems reviewed and negative - CONSTITUTIONAL Constitutional: DENIES: Fever - EENT EENT: REPORTS: Sore Throat, Ear Pain, Nasal Drainage-Clear. DENIES: Congestion - RESPIRATORY Respiratory: REPORTS: Coughing - GASTROINTESTINAL Gastrointestinal: DENIES: Nausea, Patient vomiting - DERM Skin Color: Normal Skin Problems: None Past Medical History - General Information source: Patient - Social History Smoking Status: Never Smoker Frequency of alcohol use: None Drug Abuse: None Lives with: Family Family History: Reviewed & Not Pertinent Patient has suicidal ideation: No Patient has homicidal ideation: No - Past Medical History Cardiac Medical History: Reports: Hx Hypertension Pulmonary Medical History: Reports: Hx Sleep Apnea - NO MACHINE Neurological Medical History: Reports: Hx Cerebrovascular Accident - 2007 Endocrine Medical History: Reports: Hx Hypothyroidism Past Surgical History: Reports: Hx Section - X1, Hx Gynecologic Surgery - uterine ablasion/bladder tuck, Hx Kidney (Renal Surgery) - feb 11, 2016 partial kidney removed due to mass, Hx Neurologic Surgery - partial left nephrectomy, Hx Orthopedic Surgery - tkr. left and right, Hx Thyroid Surgery - Immunizations Hx Diphtheria, Pertussis, Tetanus Vaccination: Yes Hx Pneumococcal Vaccination: 02/09/00 Vertical Provider Document - CONSTITUTIONAL Agree With Documented VS: Yes Exam Limitations: No Limitations General Appearance: WD/WN, No Apparent Distress - INFECTION CONTROL TRAVEL OUTSIDE OF THE [place] IN LAST 30 DAYS: No - HEENT HEENT: Atraumatic, Normocephalic, Pharyngeal Tenderness, Pharyngeal Erythema. negative: Pharyngeal Exudate, Tympanic Membrane Red, Tympanic Membrane Bulging - NECK Neck: Normal Inspection, Supple. negative: Lymphadenopathy-Left, Lymphadenopathy-Right - RESPIRATORY Respiratory: Breath Sounds Normal, No Respiratory Distress, Chest Non-Tender. negative: Rhonchi, Wheezing - CARDIOVASCULAR Cardiovascular: Regular Rate, Regular Rhythm, No Murmur - BACK Back: Normal Inspection - MUSCULOSKELETAL/EXTREMETIES Musculoskeletal/Extremeties: EDILMA FAM - NEURO Level of Consciousness: Awake, Alert, Appropriate Motor/Sensory: No Motor Deficit - DERM Integumentary: Warm, Dry, No Rash Course - Laboratory Laboratory results interpreted by me: 02/06/18 20:45 Labs- Entire Visit 02/06/18 19:59 Group A Strep Rapid NEGATIVE Discharge - Discharge Clinical Impression: Sore throat Upper respiratory infection Qualifiers: URI type: unspecified URI Qualified Code(s): J06.9 - Acute upper respiratory infection, unspecified Condition: Stable Disposition: HOME, SELF-CARE Instructions: Acetaminophen, Sore Throat ([facility]), Upper Respiratory Illness ([facility]) Additional Instructions: Return immediately for any new or worsening symptoms Followup with your primary care provider, call tomorrow to make a followup appointment You may take Coricidin HBP [id number] to help with congestion symptoms Prescriptions: Guaifenesin/Dextromethorphan [Mucinex Dm ER 1,200-60 mg Tab] 1 each PO Q12 PRN #12 tab.er.12h PRN Reason: Referrals: [facility] [Provider Group] - Follow up as needed
[2018-02-06 21:20] VITALS: BP 151/94
== END 2018-02-06 21:11 | disposition home or self-care (01) ==
LOC: ER 19:26
DX: J06.9 Acute upper respiratory infection, unspecified (principal); J02.9 Acute pharyngitis, unspecified; H92.03 Otalgia, bilateral; I10 Essential (primary) hypertension
CPT/HCPCS: 99283; 87070; 87880; 87077; J3490 ×2

== ENCOUNTER 2018-07-08 15:18 | Emergency (ER) | payer MEDICARE, MEDICAID ==
[2018-07-08] MEDS ORDERED: LIDOCAINE 2% VISCOUS SOLN 20 ML UDCUP PO ONE (17:14)
--- NOTE | 2018-07-08 17:16 | ER Document Report ---
HPI - HPI Time Seen by Provider: 07/08/18 17:03 Pain Level: 3 Context: Patient is a 57-year-old female who presents the emergency department with a chief complaint of tooth pain to tooth #19. She states that she has broken that tooth and she has pain from that area of her mouth that radiates up to her left ear. She states that it is very painful and she noticed that about 2 days ago she was unable to see her dentist today, as they did not have any appointments available. She was also referred by her dentist to the emergency department. She saw her primary care provider when she first had the pain and she had a shot of antibiotics, but continues to have pain. Past medical history includes hypertension and she currently takes lisinopril. - ROS Systems Reviewed and Negative: Yes All other systems reviewed and negative - CONSTITUTIONAL Constitutional: DENIES: Fever, Chills - EENT EENT: REPORTS: Ear Pain. DENIES: Sore Throat Notes: Tooth pain to tooth #19 - NEURO Neurology: DENIES: Headache, Weakness - REPRODUCTIVE Reproductive: DENIES: : Past Medical History - Social History Smoking Status: Unknown if Ever Smoked Family History: Reviewed & Not Pertinent - Past Medical History Cardiac Medical History: Reports: Hx Hypertension Denies: Hx Atrial Fibrillation, Hx Congestive Heart Failure, Hx Coronary Artery Disease, Hx Heart Attack, Hx Hypercholesterolemia, Hx Peripheral Vascular Disease, Hx Pulmonary Embolism, Hx Heart Murmur Pulmonary Medical History: Reports: Hx Sleep Apnea - NO MACHINE Denies: Hx Asthma, Hx Bronchitis, Hx Pneumonia, Hx Respiratory Failure, Hx Tuberculosis Neurological Medical History: Reports: Hx Cerebrovascular Accident - 2007 Endocrine Medical History: Reports: Hx Hypothyroidism. Denies: Hx Graves' Disease, Hx Hyperthyroidism Renal/ Medical History: Denies: Hx End Stage Renal Disease, Hx Kidney Stones, Hx Ovarian Cysts, Hx Peritoneal Dialysis, Hx Pelvic Inflammatory Disease Malignancy Medical History: Denies: Hx Breast Cancer, Hx Cervical Cancer, Hx Lung Cancer, Hx Ovarian Cancer Musculoskeletal Medical History: Denies Hx Arthritis, Denies Hx Fibromyalgia, Denies Hx Muscular Dystrophy, Denies Hx Systemic Lupus Erythematosus Psychiatric Medical History: Denies: Hx Bipolar Disorder, Hx Depression, Hx Post Traumatic Stress Disorder, Hx Schizophrenia Traumatic Medical History: Denies: Hx Fractures Past Surgical History: Reports: Hx Section - X1, Hx Gynecologic Surgery - uterine ablasion/bladder tuck, Hx Kidney (Renal Surgery) - feb 11, 2016 partial kidney removed due to mass, Hx Neurologic Surgery - partial left nephrectomy, Hx Orthopedic Surgery - tkr. left and right, Hx Thyroid Surgery. Denies: Hx Appe ndectomy, Hx Bowel Surgery, Hx Cholecystectomy, Hx Coronary Artery Bypass Graft, Hx Gastric Bypass Surgery, Hx Herniorrhaphy, Hx Hysterectomy, Hx Mastectomy, Hx Pacemaker, Hx Tonsillectomy, Hx Tubal Ligation - Immunizations Hx Diphtheria, Pertussis, Tetanus Vaccination: Yes Hx Pneumococcal Vaccination: 02/09/00 Vertical Provider Document - CONSTITUTIONAL Agree With Documented VS: Yes Exam Limitations: No Limitations General Appearance: No Apparent Distress - INFECTION CONTROL TRAVEL OUTSIDE OF THE [place] IN LAST 30 DAYS: No - HEENT HEENT: Atraumatic, Normocephalic Mouth Diagram: 1 - Dental carry noted - NECK Neck: Normal Inspection, Supple - RESPIRATORY Respiratory: Breath Sounds Normal, No Respiratory Distress - CARDIOVASCULAR Cardiovascular: Regular Rate, Regular Rhythm Pulses: Normal: Radial - MUSCULOSKELETAL/EXTREMETIES Musculoskeletal/Extremeties: FROM - NEURO Level of Consciousness: Awake, Alert, Appropriate Motor/Sensory: No Motor Deficit, No Sensory Deficit - DERM Integumentary: Warm, Dry, No Rash Course - Re-evaluation Re-evalutation: 07/08/18 17:16 Patient's physical exam and history is most consistent with a infected tooth. Patient is able to swallow, no facial swelling noted, airways pain, vital signs are normal. I do not suspect Veto's angina, peritonsilar abscess, or airway obstruction. The patient will be started on oral antibiotics. I have given the patient education on their antibiotics. Patient was given instructions to follow-up with a dentist this week. Return precautions were given. Verbal discharge instructions were given. Patient verbalized understanding. Patient is stable for discharge. - Vital Signs Vital signs: Temp Pulse Resp BP Pulse Ox 98.0 F 105 H 20 136/80 H 95 07/08/18 15:33 07/08/18 15:33 07/08/18 15:33 07/08/18 15:33 07/08/18 15:33 Discharge - Discharge Clinical Impression: Toothache Condition: Stable Disposition: HOME, SELF-CARE Instructions: Penicillin V K ([facility]), Toothache ([facility]) Additional Instructions: You have been seen in the emergency department for a toothache. You may take ibuprofen 600 mg and Tylenol 1000 mg every 6 hours as needed for the pain. You have also been given topical lidocaine. Placed that to the affected tooth as needed to help with pain. You have also been prescribed antibiotics. Please take the antibiotics as prescribed, even if you start to feel better. If you develop a fever greater than 100.4 F, or have any symptoms that are worrisome to you, please return to the emergency department. Please follow-up with a dentist this week in regards to your visit. Prescriptions: Acetaminophen [Acetaminophen Extra Strength] 1,000 mg PO Q6HP PRN #90 tablet PRN Reason: Pain Scale Of 1 Ibuprofen [Motrin 600 Mg Tablet] 600 mg PO Q6HP PRN #30 tablet PRN Reason: Penicillin V Potassium [Penicillin Vk 500 mg Tablet] 500 mg PO BID #20 tablet Referrals: DANIEL MOSS PA-C [Primary Care Provider] - Follow up as needed
[2018-07-08 17:39] VITALS: BP 129/86
== END 2018-07-08 17:38 | disposition home or self-care (01) ==
LOC: ER 15:18
DX: K02.9 Dental caries, unspecified (principal); K08.89 Other specified disorders of teeth and supporting structures; H92.02 Otalgia, left ear; I10 Essential (primary) hypertension; Z79.899 Other long term (current) drug therapy
CPT/HCPCS: 99282; J3490

== ENCOUNTER 2018-08-03 11:07 | Inpatient (IN) | payer MEDICARE, MEDICAID ==
[2018-08-03] MEDS ORDERED: NORMAL SALINE 1000 ML 1,000 ML IV ONE ×2 (11:32→13:11)
--- NOTE | 2018-08-03 11:33 | ER Document Report ---
ED Medical Screen (RME) - General Chief Complaint: Headache Stated Complaint: BLURRED VISION Time Seen by Provider: 08/03/18 11:29 Primary Care Provider: DANIEL MOSS PA-C [Primary Care Provider] - Follow up as needed Mode of Arrival: Wheelchair Information source: Patient Notes: Patient presents with a complaint of headache and blurred vision that has been off and on since yesterday. Patient reports generalized body aches and left- sided abdominal pain. Patient states abdominal pain is been off and on for some time but is started to worsen. Patient also reports diarrhea. Patient does have a history of hypertension and did take her blood pressure medication today without checking her blood pressure first. Patient is hypotensive in triage. Patient also has a history of renal cancer. Patient states that she wants to have a CT of her head performed at this time given her persistent headache pain. I have greeted and performed a rapid initial assessment of this patient. A comprehensive ED assessment and evaluation of the patient, analysis of test results and completion of the medical decision making process will be conducted by additional ED providers. TRAVEL OUTSIDE OF THE [place] IN LAST 30 DAYS: No - Related Data Allergies/Adverse Reactions: No Known Allergies Allergy (Verified 08/03/18 11:08) Past Medical History - Social History Frequency of alcohol use: None Drug Abuse: None - Past Medical History Cardiac Medical History: Reports: Hx Hypertension Denies: Hx Atrial Fibrillation, Hx Congestive Heart Failure, Hx Coronary Artery Disease, Hx Heart Attack, Hx Hypercholesterolemia, Hx Peripheral Vascular Disease, Hx Pulmonary Embolism, Hx Heart Murmur Pulmonary Medical History: Reports: Hx Sleep Apnea - NO MACHINE Denies: Hx Asthma, Hx Bronchitis, Hx Pneumonia, Hx Respiratory Failure, Hx Tuberculosis Neurological Medical History: Reports: Hx Cerebrovascular Accident - 2007 Endocrine Medical History: Reports: Hx Hypothyroidism. Denies: Hx Graves' Disease, Hx Hyperthyroidism Renal/ Medical History: Denies: Hx End Stage Renal Disease, Hx Kidney Stones, Hx Ovarian Cysts, Hx Peritoneal Dialysis, Hx Pelvic Inflammatory Disease Malignancy Medical History: Denies: Hx Breast Cancer, Hx Cervical Cancer, Hx Lung Cancer, Hx Ovarian Cancer Musculoskeltal Medical History: Denies Hx Arthritis, Denies Hx Fibromyalgia, Denies Hx Muscular Dystrophy, Denies Hx Systemic Lupus Erythematosus Psychiatric Medical History: Reports: Hx Depression - anxiety Denies: Hx Bipolar Disorder, Hx Post Traumatic Stress Disorder, Hx Schizophrenia Traumatic Medical History: Denies: Hx Fractures Past Surgical History: Reports: Hx Section - X1, Hx Gynecologic Surgery - uterine ablasion/bladder tuck, Hx Kidney (Renal Surgery) - feb 11, 2016 partial kidney removed due to mass, Hx Neurologic Surgery - partial left nephrectomy, Hx Orthopedic Surgery - tkr. left and right, Hx Thyroid Surgery. Denies: Hx Appendectomy, Hx Bowel Surgery, Hx Cholecystectomy, Hx Coronary Artery Bypass Graft, Hx Gastric Bypass Surgery, Hx Herniorrhaphy, Hx Hysterectomy, Hx Mastectomy, Hx Pacemaker, Hx Tonsillectomy, Hx Tubal Ligation - Immunizations Hx Diphtheria, Pertussis, Tetanus Vaccination: Yes History of Influenza Vaccine for 11/2016 - 04/2017 Season: No Physical Exam - Vital signs Vitals: Temp Pulse Resp BP Pulse Ox 97.4 F 99 16 81/53 L 94 08/03/18 11:11 08/03/18 11:11 08/03/18 11:11 08/03/18 11:11 08/03/18 11:11 - Neurological Neuro grossly intact: Yes Cognition: Normal Arabella Coma Scale Eye Opening: Spontaneous Arabella Coma Scale Verbal: Oriented Arabella Coma Scale Motor: Obeys Commands Arabella Coma Scale Total: 15 Speech: Normal. No: Dysarthria Cranial nerves: Normal. No: Facial palsy Course - Vital Signs Vital signs: Temp Pulse Resp BP Pulse Ox 97.4 F 99 16 81/53 L 94 08/03/18 11:11 08/03/18 11:11 08/03/18 11:11 08/03/18 11:11 08/03/18 11:11 Doctor's Discharge - Discharge Referrals: DANIEL MOSS PA-C [Primary Care Provider] - Follow up as needed
[2018-08-03 11:58] LABS: ABSOLUTE BASOPHILS # (AUTO) 0.1 10^3/uL (0.0-0.2); ABSOLUTE EOSINOPHILS # (AUTO) 0.2 10^3/uL (0.0-0.6); ABSOLUTE LYMPHOCYTES (AUTO) 2.4 10^3/uL (0.5-4.7); ABSOLUTE MONOCYTES (AUTO) 0.6 10^3/uL (0.1-1.4); ABSOLUTE NEUT (AUTO) 3.2 10^3/uL (1.7-8.2); BASOPHILS % (AUTO) 0.8 % (0-2); EOSINOPHILS % (AUTO) 3.2 % (0-6); HEMATOCRIT 41.4 % (36.0-47.0); HEMOGLOBIN 13.8 g/dL (12.0-15.5); LYMPHOCYTES % (AUTO) 36.8 % (13-45); MEAN CORPUSCULAR HEMOGLOBIN 30.4 pg (27.0-33.4); MEAN CORPUSCULAR HGB CONC 33.4 g/dL (32.0-36.0); MEAN CORPUSCULAR VOLUME 91 fl (80-97); MONOCYTES % (AUTO) 9.6 % (3-13); PLATELET COUNT 273 10^3/uL (150-450); RED BLOOD COUNT 4.55 10^6/uL (3.72-5.28); RED CELL DISTRIBUTION WIDTH 14.3 % (11.5-14.0); SEGMENTED NEUTROPHILS % (AUTO) 49.6 % (42-78); TOTAL CELLS COUNTED % (AUTO) 100 %; WHITE BLOOD COUNT 6.5 10^3/uL (4.0-10.5)
[2018-08-03 12:11] LABS: ALANINE AMINOTRANSFERASE 61 U/L (9-52); ALBUMIN 4.8 g/dL (3.5-5.0); ALKALINE PHOSPHATASE 72 U/L (38-126); ANION GAP 16 (5-19); ASPARTATE AMINO TRANSFERASE 55 U/L (14-36); BILIRUBIN,DIRECT 0.4 mg/dL (0.0-0.4); BILIRUBIN,TOTAL 0.8 mg/dL (0.2-1.3); BLOOD UREA NITROGEN 51 mg/dL (7-20); CALCIUM 10.3 mg/dL (8.4-10.2); CARBON DIOXIDE 24 mmol/L (22-30); CHLORIDE 99 mmol/L (98-107); GLUCOSE 117 mg/dL (75-110); POTASSIUM 4.3 mmol/L (3.6-5.0); SODIUM 138.9 mmol/L (137-145); TOTAL PROTEIN 8.6 g/dL (6.3-8.2)
--- NOTE | 2018-08-03 12:40 | RADIOLOGY REPORT (SQ) ---
EXAM DESCRIPTION: CHEST SINGLE VIEW COMPLETED DATE/TIME: 08/03/2018 12:25 pm REASON FOR STUDY: blurred vision, TOBIN, hypotension COMPARISON: 10/31/2015. EXAM PARAMETERS: NUMBER OF VIEWS: One view. TECHNIQUE: Single frontal radiographic view of the chest acquired. RADIATION DOSE: NA LIMITATIONS: None. FINDINGS: LUNGS AND PLEURA: No opacities, masses or pneumothorax. No pleural effusion. MEDIASTINUM AND HILAR STRUCTURES: No masses. Contour normal. HEART AND VASCULAR STRUCTURES: Heart normal in size. Normal vasculature. BONES: No acute findings. HARDWARE: None in the chest. OTHER: No other significant finding. IMPRESSION: NO ACUTE RADIOGRAPHIC FINDING IN THE CHEST. TECHNICAL DOCUMENTATION: JOB ID: [id number] [employer]- All Rights Reserved Reading location - IP/workstation name: [email or web address]
--- NOTE | 2018-08-03 12:41 | RADIOLOGY REPORT (SQ) ---
EXAM DESCRIPTION: CT HEAD WITHOUT COMPLETED DATE/TIME: 08/03/2018 12:29 pm REASON FOR STUDY: blurred vision, TOBIN, hypotension COMPARISON: 02/29/2008. TECHNIQUE: Axial images acquired through the brain without intravenous contrast. Images reviewed wi th bone, brain and subdural windows. Additional sagittal and coronal reconstructions were generated. Images stored on PACS. All CT scanners at this facility use dose modulation, iterative reconstruction, and/or weight based d osing when appropriate to reduce radiation dose to as low as reasonably achievable (ALARA). [facility]: Dose Right [facility]: CareDose [facility]: Dose Right [facility]: Teradose 4D [facility]: Bubbles and Beyond RADIATION DOSE: CT Rad equipment meets quality standard of care and radiation dose reduction techniq ues were employed. CTDIvol: 53.2 mGy. DLP: 991 mGy-cm. mGy. LIMITATIONS: None. FINDINGS: VENTRICLES: Normal size and contour. CEREBRUM: No masses. No hemorrhage. No midline shift. No evidence for acute infarction. Normal gra y/white matter differentiation. No areas of low density in the white matter. CEREBELLUM: No masses. No hemorrhage. No alteration of density. No evidence for acute infarction. EXTRAAXIAL SPACES: No fluid collections. No masses. ORBITS AND GLOBE: No intra- or extraconal masses. Normal contour of globe without masses. CALVARIUM: No fracture. PARANASAL SINUSES: No fluid or mucosal thickening. SOFT TISSUES: No mass or hematoma. OTHER: No other significant finding. IMPRESSION: NORMAL BRAIN CT WITHOUT CONTRAST. EVIDENCE OF ACUTE STROKE: NO. COMMENT: Quality ID # [id number]: Final reports with documentation of one or more dose reduction techniques (e.g., Automated exposure control, adjustment of the mA and/or kV according to patient size, use of iterative reconstruction technique) TECHNICAL DOCUMENTATION: JOB ID: [id number] [employer]- All Rights Reserved Reading location - IP/workstation name: [email or web address]
[2018-08-03 12:44] LABS: CREATINE KINASE 69 U/L (30-135)
--- NOTE | 2018-08-03 13:00 | ER Document Report ---
Entered by WEST MALIN SCRIBE 08/03/18 1204 Acting as scribe for:KENNEDY BENITEZ MD ED General - General Chief Complaint: Headache Stated Complaint: BLURRED VISION Time Seen by Provider: 08/03/18 11:29 Primary Care Provider: DANIEL MOSS PA-C [Primary Care Provider] - Follow up as needed Mode of Arrival: Wheelchair Information source: Patient Notes: Patient is a 57-year-old female presenting to the emergency department complaining of headaches with associated blurred vision and abdominal pain. Patient states that she went to the beach with some friends yesterday planned to stay for an hour or 2, ended up staying 6 hours and did not drink much water. Patient states that she had 2 bottles of water. Patient states that she has been having headaches for over a month now and is also experiencing blood in her stool intermittently for about a month now. TRAVEL OUTSIDE OF THE [place] IN LAST 30 DAYS: No - Related Data Allergies/Adverse Reactions: No Known Allergies Allergy (Verified 08/03/18 11:08) Past Medical History - General Information source: Patient - Social History Smoking Status: Never Smoker Cigarette use (# per day): No Chew tobacco use (# tins/day): No Frequency of alcohol use: None Drug Abuse: None Family History: Reviewed & Not Pertinent Patient has suicidal ideation: No Patient has homicidal ideation: No - Past Medical History Cardiac Medical History: Reports: Hx Hypertension Pulmonary Medical History: Reports: Hx Sleep Apnea - NO MACHINE Neurological Medical History: Reports: Hx Cerebrovascular Accident - 2007 Endocrine Medical History: Reports: Hx Hypothyroidism Psychiatric Medical History: Reports: Hx Depression - anxiety Past Surgical History: Reports: Hx Section - X1, Hx Gynecologic Surgery - uterine ablasion/bladder tuck, Hx Kidney (Renal Surgery) - feb 11, 2016 partial kidney removed due to mass, Hx Neurologic Surgery - partial left nephrectomy, Hx Orthopedic Surgery - tkr. left and right, Hx Thyroid Surgery - Immunizations Hx Diphtheria, Pertussis, Tetanus Vaccination: Yes Hx Pneumococcal Vaccination: 02/09/00 Review of Systems - Review of Systems Constitutional: No symptoms reported EENT: See HPI, Blurred vision Cardiovascular: No symptoms reported Respiratory: No symptoms reported Gastrointestinal: See HPI, Abdominal pain, Rectal bleeding - bloody stool Genitourinary: No symptoms reported Female Genitourinary: No symptoms reported Musculoskeletal: No symptoms reported Skin: No symptoms reported Hematologic/Lymphatic: No symptoms reported Neurological/Psychological: See HPI, Headaches -: Yes All other systems reviewed and negative Physical Exam - Vital signs Vitals: Temp Pulse Resp BP Pulse Ox 97.4 F 99 16 81/53 L 94 08/03/18 11:11 08/03/18 11:11 08/03/18 11:11 08/03/18 11:11 08/03/18 11:11 - Notes Notes: Physical Exam: General: Alert, morbidly obese. HEENT: Normocephalic. Atraumatic. PERRL. Extraocular movements intact. Oropharynx clear. Neck: Supple. Non-tender. Respiratory: No respiratory distress. Clear and equal breath sounds bilaterally. Cardiovascular: Regular rate and rhythm. Abdominal: Normal Inspection. Non-tender. No distension. Normal Bowel Sounds. Back: Non-tender. No deformity or step off. Extremities: Moves all four extremities. Upper extremities: Normal inspection. Normal ROM. Lower extremities: Venous henry on the left dorsal foot. No edema. Normal ROM. Neurological: Normal cognition. AAOx4. Normal speech. Psychological: Normal affect. Normal Mood. Skin: Warm. Dry. Normal color. Course - Re-evaluation Re-evalutation: 08/03/18 13:10 The patient's creatinine was found to be 6.58 with a BUN of 51 but a normal low CK. The last lab work done at this facility was 1 year ago at which time her creatinine is 1.02 and BUN was 16 She does not know if she has had any lab work done since that time for certain. 08/03/18 14:06 I did attempt to contact her primary care provider, oliver Wheeler. I reached recordings with every extension and left messages but was never c alled back. - Vital Signs Vital signs: Temp Pulse Resp BP Pulse Ox 98.3 F 99 17 110/78 94 08/03/18 12:01 08/03/18 11:11 08/03/18 12:01 08/03/18 12:01 08/03/18 11:11 - Laboratory Result Diagrams: 08/03/18 11:43 08/03/18 11:43 Laboratory results interpreted by me: 08/03/18 08/03/18 11:43 11:43 RDW 14.3 H BUN 51 H Creatinine 6.58 H Est GFR ( Amer) 8 L Est GFR (Non-Af Amer) 7 L Glucose 117 H Calcium 10.3 H AST 55 H ALT 61 H Total Protein 8.6 H - Consults Dr. Calderon Time consulted: 13:15 Consulted provider: will come to ER - IMCU, call Dr. Melendez Dr. Melendez Time consulted: 13:18 Consulted provider: will see as inpatient Critical Care Note - Critical Care Note Total time excluding time spent on procedures (mins): 40 Discharge - Discharge Clinical Impression: Dehydration Acute renal failure Qualifiers: Acute renal failure type: unspecified Qualified Code(s): N17.9 - Acute kidney failure, unspecified Hypotension Qualifiers: Hypotension type: unspecified hypotension type Qualified Code(s): I95.9 - Hypotension, unspecified Headache Qualifiers: Headache type: unspecified Headache chronicity pattern: acute headache Intractability: not intractable Qualified Code(s): R51 - Headache Condition: Fair Disposition: ADMITTED INPATIENT Admitting Provider: Kvng (Hospitalist) Unit Admitted: IMCU Referrals: DANIEL MOSS PA-C [Primary Care Provider] - Follow up as needed Scribe Attestation: 08/03/18 13:11 I personally performed the services described in the documentation, reviewed and edited the documentation which was dictated to the scribe in my presence, and it accurately records my words and actions. I personally performed the services described in the documentation, reviewed and edited the documentation which was dictated to the scribe in my presence, and it accurately records my words and actions.
[2018-08-03] MEDS ORDERED: ACETAMINOPHEN 325 MG TABLET PO PRN (14:04)
[2018-08-03] MEDS ORDERED: ONDANSETRON HCL INJ/PF 4 MG/2 ML SDV IV PRN (14:04)
--- NOTE | 2018-08-03 14:17 | PDOC H&P ---
History of Present Illness Admission Date/PCP: DANIEL MOSS PA-C Patient complains of: Headaches associated with abdominal pain History of Present Illness: SHELL HO is a 57 year old female with history of left sided renal cell carcinoma status post biopsy it was cured as per the patient, hypertension, fibromyalgia, history of thyroidectomy on thyroid supplementations came to the emergency room with complaints of abdominal pains headaches and not feeling well. The symptoms are started after spending 6 hours on the beach and drank only 2 bottles of water. After that she is not feeling well and decided to came to the emergency room for further evaluation. Denies any problems with urination. She is admitting using ibuprofen for fibromyalgia at home. Denies any nausea vomiting diarrhea denies any fevers denies any cough cold symptoms. Past Medical History Cardiac Medical History: Reports: Hypertension Denies: Atrial Fibrillation, Congestive Heart Failure, Coronary Artery Disease, Myocardial Infarction, Hyperlipidema, Peripheral Vascular Disease, Pulmonary Embolism, Heart Murmur Pulmonary Medical History: Reports: Sleep Apnea - NO MACHINE Denies: Asthma, Bronchitis, Pneumonia, Respiratory Failure, Tuberculosis Endocrine Medical History: Reports: Hypothyroidism Denies: Hyperthyroidism Renal/ Medical History: Reports: Other - History of renal cell carcinoma status post biopsy/surgery Denies: End Stage Renal Disease Malignancy Medical History: Denies: Breast Cancer, Cervical Cancer, Lung Cancer, Ovarian Cancer GI Medical History: Reports: None Musculoskeltal Medical History: Denies: Arthritis, Fibromyalgia Psychiatric Medical History: Reports: Depression - anxiety Denies: Bipolar Disorder, Post Traumatic Stress Disorder Infectious Medical History: Reports: None Past Surgical History Past Surgical History: Reports: Section - X1, Orthopedic Surgery - tkr. left and right Denies: Appendectomy, Cholecystectomy, Coronary Artery Bypass Graft, Gastric Bypass Surgery, Herniorrhaphy, Hysterectomy, Mastectomy, Pacemaker, Tonsillec emily, Tubal Ligation Social History Information Source: Patient Lives with: Friend Smoking Status: Never Smoker Frequency of Alcohol Use: None Hx Recreational Drug Use: No Hx Prescription Drug Abuse: No - Advance Directive Resuscitation Status: Full Code Family History Family History: Reviewed & Not Pertinent Parental Family History Reviewed: Yes - Father with cancer brain cancer lung cancer Children Family History Reviewed: Yes Sibling(s) Family History Reviewed.: Yes Medication/Allergy Home Medications: Furosemide [Lasix 20 mg Tablet] 20 mg PO DAILY 01/06/17 Hydrochlorothiazide [Hydrodiuril 25 mg Tablet] 25 mg PO DAILY 01/06/17 Hydroxyzine Pamoate [Vistaril 50 mg Capsule] 50 mg PO Q12HP PRN 01/06/17 Lisinopril [Prinivil 40 mg Tablet] 40 mg PO DAILY 01/06/17 Metronidazole [Flagyl 500 mg Tablet] 500 mg PO Q6H #28 tablet 08/06/17 Naproxen [Naprosyn] 500 mg PO BID #20 tablet 08/06/17 Guaifenesin/Dextromethorphan [Mucinex Dm ER 1,200-60 mg Tab] 1 each PO Q12 PRN #12 tab.er.12h 02/06/18 Acetaminophen [Acetaminophen Extra Strength] 1,000 mg PO Q6HP PRN #90 tablet 07/08/18 Ibuprofen [Motrin 600 Mg Tablet] 600 mg PO Q6HP PRN #30 tablet 07/08/18 Penicillin V Potassium [Penicillin Vk 500 mg Tablet] 500 mg PO BID #20 tablet 07/08/18 Allergies/Adverse Reactions: No Known Allergies Allergy (Verified 08/03/18 11:08) Review of Systems Constitutional: PRESENT: chills, fatigue, headache(s), weakness Eyes: PRESENT: visual disturbances Ears: ABSENT: hearing changes Nose, Mouth, and Throat: ABSENT: sore throat Cardiovascular: ABSENT: chest pain, dyspnea on exertion, palpitations Respiratory: ABSENT: cough, dyspnea, hemoptysis Gastrointestinal: PRESENT: abdominal pain. ABSENT: diarrhea, melena, nausea, vomiting Genitourinary: ABSENT: dysuria, hematuria Musculoskeletal: ABSENT: joint swelling Integumentary: ABSENT: rash, wounds Neurological: ABSENT: abnormal gait, abnormal speech, confusion, dizziness, focal weakness, syncope Psychiatric: ABSENT: anxiety, depression, homidical ideation, suicidal ideation Physical Exam Vital Signs: Temp Pulse Resp BP Pulse Ox 98.3 F 99 17 110/78 94 08/03/18 12:01 08/03/18 11:11 08/03/18 12:01 08/03/18 12:01 08/03/18 11:11 Intake & Output 08/02/18 08/03/18 08/04/18 06:59 06:59 06:59 Intake Total 1000 Balance 1000 Weight 115.4 kg General appearance: PRESENT: mild distress, obese Head exam: PRESENT: atraumatic Eye exam: PRESENT: PERRLA Ear exam: PRESENT: normal external ear exam Mouth exam: PRESENT: dry mucosa Teeth exam: PRESENT: poor dentation Neck exam: ABSENT: carotid bruit, JVD, lymphadenopathy, thyromegaly Respiratory exam: PRESENT: clear to auscultation nidhi. ABSENT: rales, rhonchi, wheezes Cardiovascular exam: PRESENT: RRR. ABSENT: diastolic murmur, rubs, systolic mu rmur GI/Abdominal exam: PRESENT: normal bowel sounds, soft. ABSENT: distended, guarding, mass, organolmegaly, rebound, tenderness Rectal exam: PRESENT: deferred Extremities exam: PRESENT: full ROM. ABSENT: calf tenderness, clubbing, pedal edema Neurological exam: PRESENT: alert, awake, oriented to person, oriented to place, oriented to time, oriented to situation, CN II-XII grossly intact. ABSENT: motor sensory deficit Psychiatric exam: PRESENT: appropriate affect, normal mood. ABSENT: homicidal ideation, suicidal ideation Results Laboratory Results: 08/03/18 11:43 08/03/18 11:43 08/03/18 08/03/18 11:43 11:43 WBC 6.5 RBC 4.55 Hgb 13.8 Hct 41.4 MCV 91 MCH 30.4 MCHC 33.4 RDW 14.3 H Plt Count 273 Seg Neutrophils % 49.6 Lymphocytes % 36.8 Monocytes % 9.6 Eosinophils % 3.2 Basophils % 0.8 Absolute Neutrophils 3.2 Absolute Lymphocytes 2.4 Absolute Monocytes 0.6 Absolute Eosinophils 0.2 Absolute Basophils 0.1 Sodium 138.9 Potassium 4.3 Chloride 99 Carbon Dioxide 24 Anion Gap 16 BUN 51 H Creatinine 6.58 H Est GFR ( Amer) 8 L Est GFR (Non-Af Amer) 7 L Glucose 117 H Calcium 10.3 H Total Bilirubin 0.8 AST 55 H ALT 61 H Alkaline Phosphatase 72 Total Protein 8.6 H Albumin 4.8 08/03/18 08/03/18 11:43 11:43 Creatine Kinase 69 Troponin I < 0.012 Impressions: Chest X-Ray 08/03/18 11:30 IMPRESSION: NO ACUTE RADIOGRAPHIC FINDING IN THE CHEST. Head CT 08/03/18 11:30 IMPRESSION: NORMAL BRAIN CT WITHOUT CONTRAST. EVIDENCE OF ACUTE STROKE: NO. Assessment and Plan - Diagnosis (1) Acute renal failure Qualifiers: Acute renal failure type: unspecified Qualified Code(s): N17.9 - Acute kidney failure, unspecified Is this a current diagnosis for this admission?: Yes Plan: 08/03/2018-patient is admitted to [facility]. To start on normal saline at 200 cc/h. Admitted as inpatient. Nephrology consult was requested. Renal ultrasound was requested. Lancaster's catheter was requested to follow strict input output charts. GI prophylaxis DVT prophylaxis initiated. Home medications like naproxen and ibuprofen are placed on hold. She is taking lisinopril and Lasix at home dose to medications are also on hold. Since baseline creatinine is around 1.2 on admission it is 6.87. Acute renal failure most likely secondary to poor oral intake. (2) Hypotension Qualifiers: Hypotension type: unspecified hypotension type Qualified Code(s): I95.9 - Hypotension, unspecified Is this a current diagnosis for this admission?: Yes Plan: 08/03/2018-patient came in with systolic blood pressure in the 90s. Most likely secondary to dehydration. Patient was given IV fluids wide open in the emergency room I started her on normal saline at 200 cc/h. Blood pressure is around 110/70. (3) Headache Qualifiers: Headache type: unspecified Headache chronicity pattern: acute headache Intractability: not intractable Qualified Code(s): R51 - Headache Is this a current diagnosis for this admission?: Yes Plan: 08/03/2018-patient came with complaints of headache since yesterday CT head was negative for acute pathology. The headaches most likely secondary to acute renal failure and dehydration. (4) Obesity (BMI 30-39.9) Is this a current diagnosis for this admission?: No Plan: 08/03/2018-patient came in with BMI of more than 39 diet exercise weight loss lifestyle modifications are discussed with the patient dietary consult is going to be requested. - Time Time Spent with patient: 25-34 minutes Medications reviewed and adjusted accordingly: Yes Anticipated discharge: Home
[2018-08-03 14:36] LABS: APPEARANCE,URINE SLIGHTLY-CLOUDY; BILIRUBIN,URINE NEGATIVE (NEGATIVE); COLOR,URINE YELLOW; GLUCOSE, URINE NEGATIVE (NEGATIVE); KETONES,URINE NEGATIVE (NEGATIVE); LEUKOCYTE ESTERASE,URINE NEGATIVE (NEGATIVE); NITRITE,URINE NEGATIVE (NEGATIVE); PROTEIN,URINE NEGATIVE (NEGATIVE); UROBILINOGEN,URINE NEGATIVE mg/dL (<2.0)
--- NOTE | 2018-08-03 15:02 | RADIOLOGY REPORT (SQ) ---
EXAM DESCRIPTION: U/S RETR[employer] LTD COMPLETED DATE/TIME: 08/03/2018 2:49 pm REASON FOR STUDY: Bilat renal US, acute renal failure COMPARISON: CT dated 08/06/2017. TECHNIQUE: Dynamic and static grayscale images acquired of the kidneys and bladder and recorded on P ACS. Additional selected color Doppler and spectral images recorded. LIMITATIONS: None. FINDINGS: RIGHT KIDNEY: Normal size. Normal echogenicity. No solid or suspicious masses. No h ydronephrosis. No calcifications. LEFT KIDNEY: Normal size. Normal echogenicity. Surgical defect. No solid or suspicious masses. No hydronephrosis. No calcifications. BLADDER: No masses. OTHER FINDINGS: No other significant finding. IMPRESSION: SURGICAL DEFECT IN THE LEFT KIDNEY. OTHERWISE NORMAL RENAL AND BLADDER ULTRASOUND. TECHNICAL DOCUMENTATION: JOB ID: [id number] [employer]- All Rights Reserved Reading location - IP/workstation name: [email or web address]
[2018-08-03] MEDS: NORMAL SALINE 1000 ML 1,000 ML IV PRN ×2 (17:22→21:42)
[2018-08-03] MEDS: PANTOPRAZOLE SODIUM 40 MG TABLET.DR PO SCH (17:22)
[2018-08-03] MEDS ORDERED: LOPERAMIDE HCL 2 MG CAPSULE PO PRN (20:11)
[2018-08-03] MEDS: HEPARIN SOD (PORCINE) 5,000 UNIT/ML 1 ML SYRINGE SUBCUT SCH (21:56)
[2018-08-03] MEDS: TEMAZEPAM 15 MG CAPSULE PO PRN (21:56)
--- NOTE | 2018-08-03 22:11 | EKG REPORT ---
SEVERITY:- ABNORMAL ECG - SINUS RHYTHM LEFT ANTERIOR FASCICULAR BLOCK : Confirmed by: Samantha Howell 03-Aug-2018 22:10:54
[2018-08-04] MEDS: NORMAL SALINE 1000 ML 1,000 ML IV PRN ×4 (02:49→23:43)
[2018-08-04] MEDS: HEPARIN SOD (PORCINE) 5,000 UNIT/ML 1 ML SYRINGE SUBCUT SCH ×3 (06:10→21:52)
[2018-08-04] MEDS: PANTOPRAZOLE SODIUM 40 MG TABLET.DR PO SCH ×2 (06:10→17:15)
[2018-08-04 06:21] LABS: ABSOLUTE EOSINOPHILS # (AUTO) 0.1 10^3/uL (0.0-0.6); ABSOLUTE LYMPHOCYTES (AUTO) 2.3 10^3/uL (0.5-4.7); ABSOLUTE MONOCYTES (AUTO) 0.5 10^3/uL (0.1-1.4); ABSOLUTE NEUT (AUTO) 1.5 10^3/uL (1.7-8.2); BASOPHILS % (AUTO) 0.6 % (0-2); EOSINOPHILS % (AUTO) 3.4 % (0-6); HEMATOCRIT 34.9 % (36.0-47.0); LYMPHOCYTES % (AUTO) 51.9 % (13-45); MEAN CORPUSCULAR HEMOGLOBIN 30.2 pg (27.0-33.4); MEAN CORPUSCULAR HGB CONC 32.8 g/dL (32.0-36.0); MEAN CORPUSCULAR VOLUME 92 fl (80-97); MONOCYTES % (AUTO) 10.4 % (3-13); PLATELET COUNT 181 10^3/uL (150-450); RED BLOOD COUNT 3.79 10^6/uL (3.72-5.28); RED CELL DISTRIBUTION WIDTH 14.7 % (11.5-14.0); SEGMENTED NEUTROPHILS % (AUTO) 33.7 % (42-78); TOTAL CELLS COUNTED % (AUTO) 100 %; WHITE BLOOD COUNT 4.4 10^3/uL (4.0-10.5)
[2018-08-04 06:29] LABS: HEMOGLOBIN 11.5 g/dL (12.0-15.5)
[2018-08-04 06:33] LABS: ALANINE AMINOTRANSFERASE 54 U/L (9-52); ALBUMIN 3.4 g/dL (3.5-5.0); ALKALINE PHOSPHATASE 52 U/L (38-126); ANION GAP 7 (5-19); ASPARTATE AMINO TRANSFERASE 46 U/L (14-36); BILIRUBIN,DIRECT 0.3 mg/dL (0.0-0.4); BILIRUBIN,TOTAL 0.4 mg/dL (0.2-1.3); BLOOD UREA NITROGEN 43 mg/dL (7-20); CALCIUM 8.5 mg/dL (8.4-10.2); CARBON DIOXIDE 22 mmol/L (22-30); CHLORIDE 112 mmol/L (98-107); CHOLESTEROL 165.84 mg/dL (0-200); GLUCOSE 100 mg/dL (75-110); LIPASE 896.7 U/L (23-300); SODIUM 141.2 mmol/L (137-145); TOTAL PROTEIN 6.2 g/dL (6.3-8.2); TRIGLYCERIDES 186 mg/dL (<150)
[2018-08-04 06:37] LABS: POTASSIUM 4.9 mmol/L (3.6-5.0); VLDL CHOLESTEROL 37.2 mg/dL (10-31)
[2018-08-04 06:44] LABS: DIRECT LDL 93 mg/dL (<100)
[2018-08-04] MEDS ORDERED: ONDANSETRON HCL INJ/PF 4 MG/2 ML SDV IV PRN (08:00)
--- NOTE | 2018-08-04 08:13 | PDOC PROGRESS REPORT ---
Subjective Progress Note for:: 08/04/18 Subjective:: 57 year old female with history of left sided renal cell carcinoma status post biopsy it was cured as per the patient, hypertension, fibromyalgia, history of thyroidectomy on thyroid supplementations came to the emergency room with complaints of abdominal pains headaches and not feeling well. The symptoms are started after spending 6 hours on the beach and drank only 2 bottles of water. After that she is not feeling well and decided to came to the emergency room for further evaluation. Denies any problems with urination. She is admitting using ibuprofen for fibromyalgia at home. Denies any nausea vomiting diarrhea denies any fevers denies any cough cold symptoms. 08/[id number]-old female admitted with a JOSE most likely secondary to poor oral intake creatinine is improved from 6.582 3.23 today she is on normal saline at 200 cc/h no acute events in the last 24 hours. Blood pressure is also improved. Plan is to continue the IV fluids and recheck the labs tomorrow if everything is okay she may be discharged home tomorrow. Renal ultrasound was negative. Reason For Visit: ACUTE KIDNEY INJURY Physical Exam Vital Signs: Temp Pulse Resp BP Pulse Ox 97.5 F 59 L 20 105/69 98 08/04/18 03:12 08/04/18 07:00 08/04/18 03:12 08/04/18 03:12 08/04/18 03:12 Intake & Output 08/03/18 08/04/18 08/05/18 06:59 06:59 06:59 Intake Total 4107 Output Total 650 Balance 3457 Weight 121.3 kg General appearance: PRESENT: no acute distress, obese Head exam: PRESENT: atraumatic Eye exam: PRESENT: PERRLA Mouth exam: PRESENT: moist, tongue midline Teeth exam: PRESENT: poor dentation Neck exam: ABSENT: carotid bruit, JVD, lymphadenopathy, thyromegaly Respiratory exam: PRESENT: clear to auscultation nidhi. ABSENT: rales, rhonchi, wheezes Cardiovascular exam: PRESENT: RRR. ABSENT: diastolic murmur, rubs, systolic mur mur GI/Abdominal exam: PRESENT: normal bowel sounds, soft. ABSENT: distended, guarding, mass, organolmegaly, rebound, tenderness Rectal exam: PRESENT: deferred Extremities exam: PRESENT: full ROM. ABSENT: calf tenderness, clubbing, pedal edema Neurological exam: PRESENT: alert, awake, oriented to person, oriented to place, oriented to time, oriented to situation, CN II-XII grossly intact. ABSENT: motor sensory deficit Psychiatric exam: PRESENT: appropriate affect, normal mood. ABSENT: homicidal ideation, suicidal ideation Results Laboratory Results: 08/04/18 05:56 08/04/18 05:56 08/03/18 08/03/18 08/03/18 11:43 11:43 14:11 WBC 6.5 RBC 4.55 Hgb 13.8 Hct 41.4 MCV 91 MCH 30.4 MCHC 33.4 RDW 14.3 H Plt Count 273 Seg Neutrophils % 49.6 Lymphocytes % 36.8 Monocytes % 9.6 Eosinophils % 3.2 Basophils % 0.8 Absolute Neutrophils 3.2 Absolute Lymphocytes 2.4 Absolute Monocytes 0.6 Absolute Eosinophils 0.2 Absolute Basophils 0.1 Sodium 138.9 Potassium 4.3 Chloride 99 Carbon Dioxide 24 Anion Gap 16 BUN 51 H Creatinine 6.58 H Est GFR ( Amer) 8 L Est GFR (Non-Af Amer) 7 L Glucose 117 H Calcium 10.3 H Magnesium Total Bilirubin 0.8 AST 55 H ALT 61 H Alkaline Phosphatase 72 Total Protein 8.6 H Albumin 4.8 Triglycerides Cholesterol LDL Cholesterol Direct VLDL Cholesterol HDL Cholesterol Lipase TSH Urine Color YELLOW Urine Appearance SLIGHTLY-CLOUDY Urine pH 5.0 Ur Specific Sweeny 1.010 Urine Protein NEGATIVE Urine Glucose (UA) NEGATIVE Urine Ketones NEGATIVE Urine Blood SMALL H Urine Nitrite NEGATIVE Ur Leukocyte Esterase NEGATIVE Urine WBC (Auto) 1 Urine RBC (Auto) 1 08/04/18 08/04/18 08/04/18 05:56 05:56 05:56 WBC 4.4 RBC 3.79 Hgb 11.5 L D Hct 34.9 L MCV 92 MCH 30.2 MCHC 32.8 RDW 14.7 H Plt Count 181 Seg Neutrophils % 33.7 L Lymphocytes % 51.9 H Monocytes % 10.4 Eosinophils % 3.4 Basophils % 0.6 Absolute Neutrophils 1.5 L Absolute Lymphocytes 2.3 Absolute Monocytes 0.5 Absolute Eosinophils 0.1 Absolute Basophils 0.0 Sodium 141.2 Potassium 4.9 Chloride 112 H Carbon Dioxide 22 Anion Gap 7 BUN 43 H Creatinine 3.23 H Est GFR ( Amer) 18 L Est GFR (Non-Af Amer) 15 L Glucose 100 Calcium 8.5 Magnesium 1.9 Total Bilirubin 0.4 AST 46 H ALT 54 H Alkaline Phosphatase 52 Total Protein 6.2 L Albumin 3.4 L Triglycerides 186 H Cholesterol 165.84 LDL Cholesterol Direct 93 VLDL Cholesterol 37.2 H HDL Cholesterol 34 L Lipase 896.7 H TSH 0.28 L Urine Color Urine Appearance Urine pH Ur Specific Sweeny Urine Protein Urine Glucose (UA) Urine Ketones Urine Blood Urine Nitrite Ur Leukocyte Esterase Urine WBC (Auto) Urine RBC (Auto) 08/03/18 08/03/18 08/03/18 11:43 11:43 17:46 Creatine Kinase 69 57 Troponin I < 0.012 08/03/18 08/03/18 08/03/18 17:46 23:29 23:29 Creatine Kinase 54 Troponin I < 0.012 < 0.012 08/04/18 08/04/18 05:56 05:56 Creatine Kinase 55 Troponin I < 0.012 Impressions: Chest X-Ray 08/03/18 11:30 IMPRESSION: NO ACUTE RADIOGRAPHIC FINDING IN THE CHEST. Head CT 08/03/18 11:30 IMPRESSION: NORMAL BRAIN CT WITHOUT CONTRAST. EVIDENCE OF ACUTE STROKE: NO. Renal Ultrasound 08/03/18 13:23 IMPRESSION: SURGICAL DEFECT IN THE LEFT KIDNEY. OTHERWISE NORMAL RENAL AND BLADDER ULTRASOUND. Assessment and Plan - Diagnosis (1) Acute renal failure Qualifiers: Acute renal failure type: unspecified Qualified Code(s): N17.9 - Acute kidney failure, unspecified Is this a current diagnosis for this admission?: Yes Plan: 08/03/2018-patient is admitted to [facility]. To start on normal saline at 200 cc/h. Admitted as inpatient. Nephrology consult was requested. Renal ultrasound was requested. Lancaster's catheter was requested to follow strict input output charts. GI prophylaxis DVT prophylaxis initiated. Home medications like naproxen and ibuprofen are placed on hold. She is taking lisinopril and Lasix at home dose to medications are also on hold. Since baseline creatinine is around 1.2 on admission it is 6.87. Acute renal failure most likely secondary to poor oral intake. 08/[id number]-old female admitted with JOSE most likely secondary to poor oral intake. She was in normal saline at 200 cc/h creatinine is improved to 3.23 on admission creatinine 6.58 baseline creatinine is around 1.3. Plan is to continue the IV fluids and recheck the labs tomorrow. If everything is okay she can be discharged tomorrow. Renal ultrasound is negative for hydronephrosis. There is a surgical defect in the left kidney most likely due to surgery for renal cell carcinoma. (2) Hypotension Qualifiers: Hypotension type: unspecified hypotension type Qualified Code(s): I95.9 - Hypotension, unspecified Is this a current diagnosis for this admission?: Yes Plan: 08/03/2018-patient came in with systolic blood pressure in the 90s. Most likely secondary to dehydration. Patient was given IV fluids wide open in the emergency room I started her on normal saline at 200 cc/h. Blood pressure is around 110/70. 08/04/2018-patient blood pressure now is 110/70 receiving normal saline at 200 cc/h plan is to continue the IV fluids and continue to hold Lasix and lisinopril and to repeat the labs tomorrow. (3) Headache Qualifiers: Headache type: unspecified Headache chronicity pattern: acute headache Intractability: not intractable Qualified Code(s): R51 - Headache Is this a current diagnosis for this admission?: Yes Plan: 08/03/2018-patient came with complaints of headache since yesterday CT head was negative for acute pathology. The headaches most likely secondary to acute renal failure and dehydration. 08/04/2018-patient is not complaining of any headaches today. (4) Obesity (BMI 30-39.9) Is this a current diagnosis for this admission?: No - Time Time Spent with patient: 15-24 minutes Medications reviewed and adjusted accordingly: Yes Anticipated discharge: Home
[2018-08-04] MEDS: LEVOTHYROXINE SODIUM 0.05 MG TABLET PO SCH (08:15)
--- NOTE | 2018-08-04 12:02 | PDOC CONSULTATION ---
Consultation Consult Date: 08/04/18 Provider Consulted: Maribel MEMBRENO Consult reason:: JOSE History of Present Illness Admission Date/PCP: 08/03/18 14:16 DANIEL MOSS PA-C History of Present Illness: SHELL HO is a 57 year old female with a past history of hypertension, hypothyroidism post thyroidectomy, history of left-sided renal carcinoma and possibly underwent a partial nephrectomy around 2016 was admitted with a history of feeling very weak orthostasis and presyncope. Apparently the patient spent 6- 7 hours on the beach under the hot sun and went to sleep and woke up having progressive symptoms. She did not do any hydration while she spend this time on the beach and she denies using any alcohol. She is also having some vague lower abdominal pain since admission and hydration is gotten a whole lot better. She has been on lisinopril/Lasix and some intermittent ibuprofen over the last few days. Evaluations in the ER yesterday showed a creatinine of 6+ with signs of dehydration and hypotension. Patient has been admitted with hydration and presently feeling lots better. Her creatinine is dropped to 3+ from admission of 6+. She does not have any pre-existing kidney disease. No history of nausea vomiting chest pains or shortness of breath. No history of any headaches seizures focal deficits. Labs and medications were reviewed with the patient. Past Medical History Cardiac Medical History: Reports: Hypertension-primary Denies: Atrial Fibrillation, Coronary Artery Disease, Heart Murmur, Hyperlipidemia, Myocardial Infarction, Peripheral Vascular Disease, Pulmonary Embolism Pulmonary Medical History: Reports: Sleep Apnea - NO MACHINE Denies: Asthma, Bronchitis, Pneumonia, Respiratory Failure, Tuberculosis Endocrine Medical History: Reports: Hypothyroidism Denies: Hyperthyroidism Renal/ Medical History: Reports: Other - History of renal cell carcinoma status post biopsy/surgery Denies: Benign Prostatic Hyperplasia, End Stage Renal Disease Malignancy Medical History: Denies: Breast Cancer, Cervical Cancer, Lung Cancer, Ovarian Cancer GI Medical History: Reports: None Musculoskeltal Medical History: Denies: Arthritis, Fibromyalgia, Rheumatoid Arthritis, Systemic Lupus Erythematosus Psychiatric Medical History: Reports: Depression - anxiety Denies: Bipolar Disorder, Post Traumatic Stress Disorder Infectious Medical History: Reports: None Past Surgical History Past Surgical History: Reports: Section - X1, Orthopedic Surgery - tkr. left and right Denies: Appendectomy, Cholecystectomy, Coronary Artery Bypass Graft, Gastric Bypass Surgery, Herniorrhaphy, Hysterectomy, Mastectomy, Pacemaker, Tonsillectomy, Tubal Ligation Social History Lives with: Friend Smoking Status: Never Smoker Frequency of Alcohol Use: None Hx Recreational Drug Use: No Drugs: None Hx Prescription Drug Abuse: No - Advance Directive Resuscitation Status: Full Code Family History Parental Family History Reviewed: Yes - Negative for ESRD. Children Family History Reviewed: No Sibling(s) Family History Reviewed.: No Medication/Allergy Home Medications: Alprazolam [Xanax 0.5 mg Tablet] 0.5 mg PO BIDP PRN 08/03/18 Furosemide [Lasix 20 mg Tablet] 20 mg PO DAILY 08/03/18 Levothyroxine Sodium [Synthroid 50 Mcg Tablet] 50 mcg PO DAILY 08/03/18 Lisinopril [Prinivil 40 mg Tablet] 40 mg PO DAILY 08/03/18 Allergies/Adverse Reactions: No Known Allergies Allergy (Verified 08/03/18 11:08) Review of Systems Constitutional: PRESENT: fatigue, weakness. ABSENT: fever(s), headache(s), night sweats Eyes: ABSENT: visual disturbances Ears: ABSENT: hearing changes Nose, Mouth, and Throat: ABSENT: mouth pain, sore throat, vertigo Cardiovascular: PRESENT: edema. ABSENT: chest pain, dyspnea on exertion, orthropnea, palpitations Respiratory: ABSENT: dyspnea, hemoptysis Gastrointestinal: ABSENT: abdominal pain, coffee ground emesis, constipation, diarrhea, dysphagia, heartburn, hematemesis, hematochezia, nausea Genitourinary: ABSENT: dysuria, hematuria Musculoskeletal: ABSENT: back pain, deformity, joint swelling Integumentary: ABSENT: diaphoresis, erythema, lesions, pruritus, rash Neurological: ABSENT: abnormal movements, abnormal speech, confusion, convulsions, focal weakness, frequent falls, lack of coordination, memory loss, paresthesias Psychiatric: PRESENT: anxiety. ABSENT: depression Endocrine: ABSENT: cold intolerance Hematologic/Lymphatic: ABSENT: easy bleeding, easy bruising, lymphadenopathy Physical Exam Vital Signs: Temp Pulse Resp BP Pulse Ox 97.3 F 64 18 120/67 100 08/04/18 07:43 08/04/18 07:43 08/04/18 07:43 08/04/18 07:43 08/04/18 07:43 Intake & Output 08/03/18 08/04/18 08/05/18 06:59 06:59 06:59 Intake Total 4107 1000 Output Total 650 Balance 3457 1000 Weight 121.3 kg General appearance: PRESENT: no acute distress Eye exam: PRESENT: conjunctiva pink, EOMI, PERRLA Mouth exam: PRESENT: neck supple. ABSENT: moist Neck exam: ABSENT: lymphadenopathy, meningismus, tenderness, thyromegaly, tracheal deviation Respiratory exam: PRESENT: clear to auscultation nidhi. ABSENT: crackles Cardiovascular exam: PRESENT: +S1, +S2 GI/Abdominal exam: PRESENT: normal bowel sounds, soft. ABSENT: organomegaly, tenderness Extremities exam: ABSENT: pedal edema Neurological exam: PRESENT: alert, awake, oriented to person, oriented to place, oriented to time Skin exam: PRESENT: dry. ABSENT: erythema, mottled Results Laboratory Results: 08/04/18 05:56 08/04/18 05:56 08/03/18 08/03/18 08/03/18 11:43 11:43 14:11 WBC 6.5 RBC 4.55 Hgb 13.8 Hct 41.4 MCV 91 MCH 30.4 MCHC 33.4 RDW 14.3 H Plt Count 273 Seg Neutrophils % 49.6 Lymphocytes % 36.8 Monocytes % 9.6 Eosinophils % 3.2 Basophils % 0.8 Absolute Neutrophils 3.2 Absolute Lymphocytes 2.4 Absolute Monocytes 0.6 Absolute Eosinophils 0.2 Absolute Basophils 0.1 Sodium 138.9 Potassium 4.3 Chloride 99 Carbon Dioxide 24 Anion Gap 16 BUN 51 H Creatinine 6.58 H Est GFR ( Amer) 8 L Est GFR (Non-Af Amer) 7 L Glucose 117 H Calcium 10.3 H Magnesium Total Bilirubin 0.8 AST 55 H ALT 61 H Alkaline Phosphatase 72 Total Protein 8.6 H Albumin 4.8 Triglycerides Cholesterol LDL Cholesterol Direct VLDL Cholesterol HDL Cholesterol Lipase TSH Urine Color YELLOW Urine Appearance SLIGHTLY-CLOUDY Urine pH 5.0 Ur Specific [place] 1.010 Urine Protein NEGATIVE Urine Glucose (UA) NEGATIVE Urine Ketones NEGATIVE Urine Blood SMALL H Urine Nitrite NEGATIVE Ur Leukocyte Esterase NEGATIVE Urine WBC (Auto) 1 Urine RBC (Auto) 1 08/04/18 08/04/18 08/04/18 05:56 05:56 05:56 WBC 4.4 RBC 3.79 Hgb 11.5 L D Hct 34.9 L MCV 92 MCH 30.2 MCHC 32.8 RDW 14.7 H Plt Count 181 Seg Neutrophils % 33.7 L Lymphocytes % 51.9 H Monocytes % 10.4 Eosinophils % 3.4 Basophils % 0.6 Absolute Neutrophils 1.5 L Absolute Lymphocytes 2.3 Absolute Monocytes 0.5 Absolute Eosinophils 0.1 Absolute Basophils 0.0 Sodium 141.2 Potassium 4.9 Chloride 112 H Carbon Dioxide 22 Anion Gap 7 BUN 43 H Creatinine 3.23 H Est GFR ( Amer) 18 L Est GFR (Non-Af Amer) 15 L Glucose 100 Calcium 8.5 Magnesium 1.9 Total Bilirubin 0.4 AST 46 H ALT 54 H Alkaline Phosphatase 52 Total Protein 6.2 L Albumin 3.4 L Triglycerides 186 H Cholesterol 165.84 LDL Cholesterol Direct 93 VLDL Cholesterol 37.2 H HDL Cholesterol 34 L Lipase 896.7 H TSH 0.28 L Urine Color Urine Appearance Urine pH Ur Specific [place] Urine Protein Urine Glucose (UA) Urine Ketones Urine Blood Urine Nitrite Ur Leukocyte Esterase Urine WBC (Auto) Urine RBC (Auto) 08/03/18 08/03/18 08/03/18 11:43 11:43 17:46 Creatine Kinase 69 57 Troponin I < 0.012 08/03/18 08/03/18 08/03/18 17:46 23:29 23:29 Creatine Kinase 54 Troponin I < 0.012 < 0.012 08/04/18 08/04/18 05:56 05:56 Creatine Kinase 55 Troponin I < 0.012 Impressions: Chest X-Ray 08/03/18 11:30 IMPRESSION: NO ACUTE RADIOGRAPHIC FINDING IN THE CHEST. Head CT 08/03/18 11:30 IMPRESSION: NORMAL BRAIN CT WITHOUT CONTRAST. EVIDENCE OF ACUTE STROKE: NO. Renal Ultrasound 08/03/18 13:23 IMPRESSION: SURGICAL DEFECT IN THE LEFT KIDNEY. OTHERWISE NORMAL RENAL AND BLADDER ULTRASOUND. Assessment & Plan - Diagnosis (1) Acute renal failure Qualifiers: Acute renal failure type: unspecified Qualified Code(s): N17.9 - Acute kidney failure, unspecified Is this a current diagnosis for this admission?: Yes Plan: Patient obviously was dehydrated with hypotension in the setting of severe sun exposure with poor hydration. Patient on IV fluids and doing very well. Good urine output. Still clinically dry. Advised to continue on fluid regimens for now. If the creatinine drops below 2 tomorrow she can be discharged and I can follow-up as an outpatient to see if she completes her renal recovery. Renal ultrasound was reviewed along with the labs. Ultrasound was unremarkable but for left surgical scar post apparent partial nephrectomy. (2) Dehydration Plan: Blood pressure is now normotensive. Continue fluid resuscitation. We discussed the prevention of such instances in the future especially with medication she was taking at home. (3) Hypotension Qualifiers: Hypotension type: unspecified hypotension type Qualified Code(s): I95.9 - Hypotension, unspecified Is this a current diagnosis for this admission?: Yes Plan: Currently resolved. Hold off antihypertensives for the moment.
[2018-08-04] MEDS: TEMAZEPAM 15 MG CAPSULE PO PRN (21:51)
[2018-08-04] MEDS: ALPRAZOLAM 0.5 MG TABLET PO PRN (21:51)
[2018-08-05 04:51] LABS: ABSOLUTE EOSINOPHILS # (AUTO) 0.1 10^3/uL (0.0-0.6); ABSOLUTE LYMPHOCYTES (AUTO) 1.6 10^3/uL (0.5-4.7); ABSOLUTE MONOCYTES (AUTO) 0.3 10^3/uL (0.1-1.4); ABSOLUTE NEUT (AUTO) 1.1 10^3/uL (1.7-8.2); BASOPHILS % (AUTO) 0.7 % (0-2); EOSINOPHILS % (AUTO) 3.5 % (0-6); HEMOGLOBIN 10.8 g/dL (12.0-15.5); LYMPHOCYTES % (AUTO) 52.2 % (13-45); MEAN CORPUSCULAR HEMOGLOBIN 30.4 pg (27.0-33.4); MEAN CORPUSCULAR HGB CONC 32.6 g/dL (32.0-36.0); MEAN CORPUSCULAR VOLUME 93 fl (80-97); MONOCYTES % (AUTO) 8.9 % (3-13); PLATELET COUNT 153 10^3/uL (150-450); RED BLOOD COUNT 3.54 10^6/uL (3.72-5.28); RED CELL DISTRIBUTION WIDTH 14.8 % (11.5-14.0); SEGMENTED NEUTROPHILS % (AUTO) 34.7 % (42-78); TOTAL CELLS COUNTED % (AUTO) 100 %; WHITE BLOOD COUNT 3.1 10^3/uL (4.0-10.5)
[2018-08-05 05:20] LABS: ALANINE AMINOTRANSFERASE 45 U/L (9-52); ALBUMIN 3.2 g/dL (3.5-5.0); ALKALINE PHOSPHATASE 47 U/L (38-126); ANION GAP 6 (5-19); ASPARTATE AMINO TRANSFERASE 40 U/L (14-36); BILIRUBIN,DIRECT 0.2 mg/dL (0.0-0.4); BILIRUBIN,TOTAL 0.2 mg/dL (0.2-1.3); BLOOD UREA NITROGEN 25 mg/dL (7-20); CARBON DIOXIDE 21 mmol/L (22-30); CHLORIDE 115 mmol/L (98-107); GLUCOSE 92 mg/dL (75-110); POTASSIUM 4.7 mmol/L (3.6-5.0)
[2018-08-05] MEDS: NORMAL SALINE 1000 ML 1,000 ML IV PRN (05:34)
[2018-08-05] MEDS: ALPRAZOLAM 0.5 MG TABLET PO PRN (05:40)
[2018-08-05] MEDS: PANTOPRAZOLE SODIUM 40 MG TABLET.DR PO SCH (05:40)
[2018-08-05] MEDS: LEVOTHYROXINE SODIUM 0.05 MG TABLET PO SCH (05:40)
[2018-08-05] MEDS: HEPARIN SOD (PORCINE) 5,000 UNIT/ML 1 ML SYRINGE SUBCUT SCH ×2 (05:41→05:43)
[2018-08-05 08:58] VITALS: BP 81/53
--- NOTE | 2018-08-05 10:57 | PDOC DISCHARGE SUMMARY ---
General - Admit/Disc Date/PCP Admission Date/Primary Care Provider: 08/03/18 14:16 DANIEL MOSS PA-C Discharge Date: 08/05/18 - Discharge Diagnosis (1) Acute renal failure Is this a current diagnosis for this admission?: Yes Summary: 08/03/2018-patient is admitted to [facility]. To start on normal saline at 200 cc/h. Admitted as inpatient. Nephrology consult was requested. Renal ultrasound was requested. Lancaster's catheter was requested to follow strict input output charts. GI prophylaxis DVT prophylaxis initiated. Home medications like naproxen and ibuprofen are placed on hold. She is taking lisinopril and Lasix at home dose to medications are also on hold. Since baseline creatinine is around 1.2 on admission it is 6.87. Acute renal failure most likely secondary to poor oral intake. 08/[id number]-ludq-old female admitted with JOSE most likely secondary to poor oral intake. She was in normal saline at 200 cc/h creatinine is improved to 3.23 on admission creatinine 6.58 baseline creatinine is around 1.3. Plan is to continue the IV fluids and recheck the labs tomorrow. If everything is okay she can be discharged tomorrow. Renal ultrasound is negative for hydronephrosis. There is a surgical defect in the left kidney most likely due to surgery for renal cell carcinoma. 08/[id number]-ngck-old female admitted with acute kidney injury on admission creatinine was 6.58 improved to 1.5 today patient's baseline creatinine is around 1.3. Renal ultrasound is negative for acute pathology. Creatinine today is 1.5. Patient is advised to follow-up with Dr. Melendez in his office in 1 week time. (2) Hypotension Is this a current diagnosis for this admission?: Yes Summary: 08/03/2018-patient came in with systolic blood pressure in the 90s. Most likely secondary to dehydration. Patient was given IV fluids wide open in the emergency room I started her on normal saline at 200 cc/h. Blood pressure is around 110/70. 08/04/2018-patient blood pressure now is 110/70 receiving normal saline at 200 cc/h plan is to continue the IV fluids and continue to hold Lasix and lisinopril and to repeat the labs tomorrow. 08/05/2018-patient blood pressure today is 139/84. Came in with low blood pressures. She received normal saline at 200 cc/h. Hypotension is resolved. And is taking Lasix and lisinopril at home dose medications on hold patient is advised to follow-up with Dr. Melendez about restarting these medications. (3) Headache Is this a current diagnosis for this admission?: Yes (4) Obesity (BMI 30-39.9) Is this a current diagnosis for this admission?: No - Additional Information Resuscitation Status: Full Code Discharge Diet: Diabetic Discharge Activity: Activity As Tolerated Home Medications: Alprazolam [Xanax 0.5 mg Tablet] 0.5 mg PO BIDP PRN 08/03/18 Levothyroxine Sodium [Synthroid 0.05 mg Tablet] 50 mcg PO DAILY 08/03/18 History of Present Illness History of Present Illness: SHELL HO is a 57 year old female with history of left sided renal cell carcinoma status post biopsy it was cured as per the patient, hypertension, fi bromyalgia, history of thyroidectomy on thyroid supplementations came to the emergency room with complaints of abdominal pains headaches and not feeling well. The symptoms are started after spending 6 hours on the beach and drank only 2 bottles of water. After that she is not feeling well and decided to came to the emergency room for further evaluation. Denies any problems with urination. She is admitting using ibuprofen for fibromyalgia at home. Denies any nausea vomiting diarrhea denies any fevers denies any cough cold symptoms. Hospital Course Hospital Course: 08/[id number]-rmvw-old female admitted with acute renal failure most likely secondary to naproxen use and also exposure to intense heat with poor oral intake. On admission creatinine was 6.58 with IV fluids of normal saline at 200 cc/h creatinine was improved to 1.5. Nephrology consult was done during this hospital stay under Dr. Melendez's recommendation is is going to follow the patient as an outpatient once the creatinine was less than 2. Patient's urinary output is good all the time. No acute events during the hospital stay. Renal ultrasound shows left kidney partial nephrectomy due to previous renal cell carcinoma. Physical Exam Vital Signs: Temp Pulse Resp BP Pulse Ox 97.4 F 59 L 16 81/53 L 92 08/05/18 08:57 08/05/18 08:57 08/05/18 08:57 08/05/18 08:57 08/05/18 08:57 Intake & Output 08/04/18 08/05/18 08/06/18 06:59 06:59 06:59 Intake Total 410 5080 880 Output Total 650 2000 Balance 3457 3080 880 Weight 121.3 kg 125.2 kg General appearance: PRESENT: no acute distress Head exam: PRESENT: atraumatic Eye exam: PRESENT: PERRLA Mouth exam: PRESENT: moist, tongue midline Teeth exam: PRESENT: poor dentation Neck exam: ABSENT: carotid bruit, JVD, lymphadenopathy, thyromegaly Respiratory exam: PRESENT: clear to auscultation nidhi. ABSENT: rales, rhonchi, wheezes Cardiovascular exam: PRESENT: RRR. ABSENT: diastolic murmur, rubs, systolic murmur GI/Abdominal exam: PRESENT: normal bowel sounds, soft. ABSENT: distended, guarding, mass, organolmegaly, rebound, tenderness Rectal exam: PRESENT: deferred Extremities exam: PRESENT: full ROM. ABSENT: calf tenderness, clubbing, pedal edema Neurological exam: PRESENT: alert, awake, oriented to person, oriented to place, oriented to time, oriented to situation, CN II-XII grossly intact. ABSENT: motor sensory deficit Psychiatric exam: PRESENT: appropriate affect, normal mood. ABSENT: homicidal ideation, suicidal ideation Results Laboratory Results: 08/05/18 04:24 08/05/18 04:24 08/05/18 08/05/18 04:24 04:24 WBC 3.1 L RBC 3.54 L Hgb 10.8 L Hct 33.0 L MCV 93 MCH 30.4 MCHC 32.6 RDW 14.8 H Plt Count 153 Seg Neutrophils % 34.7 L Lymphocytes % 52.2 H Monocytes % 8.9 Eosinophils % 3.5 Basophils % 0.7 Absolute Neutrophils 1.1 L Absolute Lymphocytes 1.6 Absolute Monocytes 0.3 Absolute Eosinophils 0.1 Absolute Basophils 0.0 Sodium 142.0 Potassium 4.7 Chloride 115 H Carbon Dioxide 21 L Anion Gap 6 BUN 25 H Creatinine 1.49 H Est GFR ( Amer) 44 L Est GFR (Non-Af Amer) 36 L Glucose 92 Calcium 8.0 L Magnesium 1.6 Total Bilirubin 0.2 AST 40 H ALT 45 Alkaline Phosphatase 47 Total Protein 6.0 L Albumin 3.2 L 0608/03/18 08/03/18 11:43 11:43 17:46 Creatine Kinase 69 57 Troponin I < 0.012 08/03/18 08/03/18 08/03/18 17:46 23:29 23:29 Creatine Kinase 54 Troponin I < 0.012 < 0.012 08/04/18 08/04/18 05:56 05:56 Creatine Kinase 55 Troponin I < 0.012 Impressions: Chest X-Ray 08/03/18 11:30 IMPRESSION: NO ACUTE RADIOGRAPHIC FINDING IN THE CHEST. Head CT 08/03/18 11:30 IMPRESSION: NORMAL BRAIN CT WITHOUT CONTRAST. EVIDENCE OF ACUTE STROKE: NO. Renal Ultrasound 08/03/18 13:23 IMPRESSION: SURGICAL DEFECT IN THE LEFT KIDNEY. OTHERWISE NORMAL RENAL AND BLADDER ULTRASOUND. Qualifiers - * PATIENT BEING DISCHARGED WITH ANY OF THE FOLLOWING DIAGNOSIS: No VTE patient discharged on overlapping Therapy?: No Acute Heart Failure - Is this a Heart Failure Patient?: No
== END 2018-08-05 10:15 | disposition home or self-care (01) | DRG 684 ==
LOC: ER 11:07 → EH 14:16 → 3W 15:47
PROVIDERS: ADMIT Internal Medicine; ATTEND Internal Medicine
DX: N17.9 Acute kidney failure, unspecified (principal); E86.0 Dehydration; E66.9 Obesity, unspecified; Z68.30 Body mass index [BMI] 30.0-30.9, adult; I10 Essential (primary) hypertension; E89.0 Postprocedural hypothyroidism; M79.7 Fibromyalgia; T39.315A Adverse effect of propionic acid derivatives, initial encounter; G47.30 Sleep apnea, unspecified; F32.9 Major depressive disorder, single episode, unspecified; Z85.53 Personal history of malignant neoplasm of renal pelvis; Z96.653 Presence of artificial knee joint, bilateral; Z90.5 Acquired absence of kidney; I95.89 Other hypotension; Z79.899 Other long term (current) drug therapy; Z79.890 Hormone replacement therapy; Z86.73 Personal history of transient ischemic attack (TIA), and cerebral infarction without residual deficits
CPT/HCPCS: 36415; 70450; 71045; 76775; 80053; 80061; 81001; 82550; 82962; 83036; 83690; 83735; 84443; 84484; 85025; 93005; 93010; 96360; 99291; J1644; J3490; J7030

== ENCOUNTER 2018-08-07 18:02 | Emergency (ER) | payer MEDICARE, MEDICAID ==
[2018-08-07] MEDS ORDERED: ACETAMINOPHEN 325 MG TABLET PO ONE (18:23)
--- NOTE | 2018-08-07 18:26 | ER Document Report ---
ED Medical Screen (RME) - General Chief Complaint: Headache Stated Complaint: HEADACHE Time Seen by Provider: 08/07/18 18:13 Primary Care Provider: DANIEL MOSS PA-C [Primary Care Provider] - Follow up as needed Mode of Arrival: Ambulatory Information source: Patient Notes: Patient presents today with complaints of headache. Patient reports that she drove herself here. Denies other symptoms such as fever vomiting diarrhea. Reports that she has had the headache since she was on the beach. Patient was recently admitted and discharged on August 05 for acute kidney injury and headache. CT was done which was negative. Patient reports she is drinking half a glass of water today. Reports she has not taken anything for the headache because she did not know what to take. Patient was advised to not take NSAIDs. Patient's blood pressure is elevated. She reports she was told to not take her previous hypertensive medication until she followed up with her primary care provider. Patient is alert and oriented speaking a clear voice full sentences no obvious neuro deficits. I have greeted and performed a rapid initial assessment of this patient. A comprehensive ED assessment and evaluation of the patient, analysis of test results and completion of the medical decision making process will be conducted by additional ED providers. Dictation of this chart was performed using voice recognition software; therefore, there may be some unintended grammatical errors. TRAVEL OUTSIDE OF THE [place] IN LAST 30 DAYS: No - Related Data Allergies/Adverse Reactions: No Known Allergies Allergy (Verified 08/03/18 11:08) Past Medical History - Past Medical History Cardiac Medical History: Reports: Hx Hypertension Denies: Hx Atrial Fibrillation, Hx Congestive Heart Failure, Hx Coronary Artery Disease, Hx Heart Attack, Hx Hypercholesterolemia, Hx Peripheral Vascular Disease, Hx Pulmonary Embolism, Hx Heart Murmur Pulmonary Medical History: Reports: Hx Sleep Apnea - NO MACHINE Denies: Hx Asthma, Hx Bronchitis, Hx Pneumonia, Hx Respiratory Failure, Hx Tuberculosis Neurological Medical History: Reports: Hx Cerebrovascular Accident - 2007 Endocrine Medical History: Reports: Hx Hypothyroidism. Denies: Hx Graves' Disease, Hx Hyperthyroidism Renal/ Medical History: Denies: Hx End Stage Renal Disease, Hx Kidney Stones, Hx Ovarian Cysts, Hx Peritoneal Dialysis, Hx Pelvic Inflammatory Disease Malignancy Medical History: Denies: Hx Breast Cancer, Hx Cervical Cancer, Hx Lung Cancer, Hx Ovarian Cancer Musculoskeltal Medical History: Denies Hx Arthritis, Denies Hx Fibromyalgia, Denies Hx Muscular Dystrophy, Denies Hx Systemic Lupus Erythematosus Psychiatric Medical History: Reports: Hx Depression - anxiety Denies: Hx Bipolar Disorder, Hx Post Traumatic Stress Disorder, Hx Schizophrenia Traumatic Medical History: Denies: Hx Fractures Past Surgical History: Reports: Hx Section - X1, Hx Gynecologic Surgery - uterine ablasion/bladder tuck, Hx Kidney (Renal Surgery) - feb 11, 2016 partial kidney removed due to mass, Hx Neurologic Surgery - partial left nephrectomy, Hx Orthopedic Surgery - tkr. left and right, Hx Thyroid Surgery. Denies: Hx Appendectomy, Hx Bowel Surgery, Hx Cholecystectomy, Hx Coronary Artery Bypass Graft, Hx Gastric Bypass Surgery, Hx Herniorrhaphy, Hx Hysterectomy, Hx Mastectomy, Hx Pacemaker, Hx Tonsillectomy, Hx Tubal Ligation - Immunizations Hx Diphtheria, Pertussis, Tetanus Vaccination: Yes History of Influenza Vaccine for 11/2016 - 04/2017 Season: No Physical Exam - Vital signs Vitals: Temp Pulse Resp BP Pulse Ox 98.4 F 83 18 152/93 H 96 08/07/18 18:10 08/07/18 18:10 08/07/18 18:10 08/07/18 18:10 08/07/18 18:10 Course - Vital Signs Vital signs: Temp Pulse Resp BP Pulse Ox 98.4 F 83 18 152/93 H 96 08/07/18 18:10 08/07/18 18:10 08/07/18 18:10 08/07/18 18:10 08/07/18 18:10 Doctor's Discharge - Discharge Referrals: DANIEL MOSS PA-C [Primary Care Provider] - Follow up as needed
[2018-08-07] MEDS ORDERED: DIPHENHYDRAMINE HCL 50 MG/ML VIAL IV ONE (19:54)
[2018-08-07] MEDS ORDERED: NORMAL SALINE 1000 ML 1,000 ML IV ONE (19:54)
[2018-08-07] MEDS ORDERED: METOCLOPRAMIDE HCL INJ/PF 10 MG/2 ML SDV IV ONE (19:54)
--- NOTE | 2018-08-07 20:01 | ER Document Report ---
ED Headache - General Chief Complaint: Headache Stated Complaint: HEADACHE Time Seen by Provider: 08/07/18 18:13 Primary Care Provider: DANIEL MOSS PA-C [Primary Care Provider] - Follow up as needed Mode of Arrival: Ambulatory TRAVEL OUTSIDE OF THE [place] IN LAST 30 DAYS: No - HPI Notes: Patient is a 57-year-old female that presents to the emergency department for chief complaint of headache. Patient states she has had a headache continuously over the last few days. She states it started while she was admitted in the hospital for renal failure. She states that the headache she is having today has continued since her discharge and she has not been pain-free since being seen in the hospital. She denies head injury. She denies associated fever, chills, nausea and vomiting. Patient states that the headache is a throbbing sensation across her entire head. She does report she had a normal CT scan of her brain. Patient states she has not taken any xlyw-jwp-hjfrici pain medication for her headache. She states she has had about "a cup" of water today. She does states she could do better on drinking water but does not like it. Past Medical History: CKD Past Surgical History: Reviewed in chart Social History: Denies drugs alcohol and tobacco Family History: Reviewed and noncontributory for presenting illness Allergies: Reviewed, see documented allergy list. REVIEW OF SYSTEMS: CONSTITUTIONAL : No fever No chills No diaphoresis No recent illness EENT: No vision changes No congestion No sore throat CARDIOVASCULAR: No chest pain No palpitations RESPIRATORY: No shortness of breath No cough No difficulty breathing GASTROINTESTINAL: No abdominal pain No nausea No vomiting No diarrhea GENITOURINARY: No dysuria No hematuria No difficulty urinating MUSCULOSKELETAL: No back pain No leg pain No arm pain SKIN: No rashes No lesions LYMPHATIC: No swollen, enlarged glands. NEUROLOGICAL: No lightheadedness headache No weakness No paresthesias PSYCHIATRIC: No anxiety No depression PHYSICAL EXAMINATION: Vital signs reviewed, nursing noted reviewed. GENERAL: Well-appearing, obese and in no acute distress. HEAD: Atraumatic, normocephalic. EYES: Eyes appear normal, extraocular movements intact, sclera anicteric, conjunctiva are normal. ENT: nares patent, oropharynx clear without exudates. Moist mucous membranes. NECK: Normal range of motion, supple without lymphadenopathy LUNGS: Breath sounds clear to auscultation bilaterally and equal. No wheezes rales or rhonchi. HEART: Regular rate and rhythm without murmurs ABDOMEN: Soft, nontender, normoactive bowel sounds. No rebound, guarding, or rigidity. No masses appreciated. EXTREMITIES: Nontender, good range of motion, no pitting or edema. NEUROLOGICAL: No focal neurological deficits. Moves all extremities spontaneously Motor and sensory grossly intact on exam. PSYCH: Normal mood, normal affect. SKIN: Warm, Dry, normal turgor, no rashes or lesions noted on exposed skin - Related Data Allergies/Adverse Reactions: No Known Allergies Allergy (Verified 08/03/18 11:08) Past Medical History - General Information source: Patient - Social History Smoking Status: Unknown if Ever Smoked Family History: Reviewed & Not Pertinent Patient has suicidal ideation: No Patient has homicidal ideation: No - Past Medical History Cardiac Medical History: Reports: Hx Hypertension Denies: Hx Atrial Fibrillation, Hx Congestive Heart Failure, Hx Coronary Artery Disease, Hx Heart Attack, Hx Hypercholesterolemia, Hx Peripheral Vascular Disease, Hx Pulmonary Embolism, Hx Heart Murmur Pulmonary Medical History: Reports: Hx Sleep Apnea - NO MACHINE Denies: Hx Asthma, Hx Bronchitis, Hx Pneumonia, Hx Respiratory Failure, Hx Tuberculosis Neurological Medical History: Reports: Hx Cerebrovascular Accident - 2007 Endocrine Medical History: Reports: Hx Hypothyroidism. Denies: Hx Graves' Disease, Hx Hyperthyroidism Renal/ Medical History: Denies: Hx End Stage Renal Disease, Hx Kidney Stones, Hx Ovarian Cysts, Hx Peritoneal Dialysis, Hx Pelvic Inflammatory Disease Malignancy Medical History: Denies: Hx Breast Cancer, Hx Cervical Cancer, Hx Lung Cancer, Hx Ovarian Cancer Musculoskeletal Medical History: Denies Hx Arthritis, Denies Hx Fibromyalgia, Denies Hx Muscular Dystrophy, Denies Hx Systemic Lupus Erythematosus Psychiatric Medical History: Reports: Hx Depression - anxiety Denies: Hx Bipolar Disorder, Hx Post Traumatic Stress Disorder, Hx Schizophrenia Traumatic Medical History: Denies: Hx Fractures Past Surgical History: Reports: Hx Section - X1, Hx Gynecologic Surgery - uterine ablasion/bladder tuck, Hx Kidney (Renal Surgery) - feb 11, 2016 partial kidney removed due to mass, Hx Neurologic Surgery - partial left nephrectomy, Hx Orthopedic Surgery - tkr. left and right, Hx Thyroid Surgery. Denies: Hx Appendectomy, Hx Bowel Surgery, Hx Cholecystectomy, Hx Coronary Artery Bypass Graft, Hx Gastric Bypass Surgery, Hx Herniorrhaphy, Hx Hysterectomy, Hx Mastectomy, Hx Pacemaker, Hx Tonsillectomy, Hx Tubal Ligation - Immunizations Hx Diphtheria, Pertussis, Tetanus Vaccination: Yes Hx Pneumococcal Vaccination: 02/09/00 Physical Exam - Vital signs Vitals: Temp Pulse Resp BP Pulse Ox 98.4 F 83 18 152/93 H 96 08/07/18 18:10 08/07/18 18:10 08/07/18 18:10 08/07/18 18:10 08/07/18 18:10 Course - Re-evaluation Re-evalutation: 08/07/18 20:00 Vitals reviewed. Nursing notes reviewed. Patient is well-appearing and in no acute distress. She did receive Tylenol in triage but states her headache has continued. She does report some improvement after Tylenol. Patient has not had much water to drink today or yesterday. She has not been treating this headache as an outpatient with any wili-irg-kxvrpth pain medication. Because of her recent admission to the hospital for renal insufficiency secondary to poor oral intake BMP will be ordered to evaluate for her kidney function today. Patient will be given IV fluids, Reglan and Benadryl for further headache treatment. She had a negative CT scan on chart review and the headache she is having today is unchanged from when that scan was obtained. I do not feel repeat imaging is currently indicated. 08/07/18 21:00 Patient reevaluated and states her headache has resolved. Her renal function today is normal. Patient was encouraged to stay well-hydrated as well as taking Tylenol at home. Laboratory 08/07/18 20:10 Sodium 139.7 Potassium 4.2 Chloride 107 Carbon Dioxide 28 Anion Gap 5 BUN 9 Creatinine 0.95 Est GFR ( Amer) > 60 Est GFR (Non-Af Amer) > 60 Glucose 129 H Calcium 8.8 - Vital Signs Vital signs: Temp Pulse Resp BP Pulse Ox 98.4 F 83 18 152/93 H 96 08/07/18 18:10 08/07/18 18:10 08/07/18 18:10 08/07/18 18:10 08/07/18 18:10 - Laboratory Result Diagrams: 08/07/18 20:10 Laboratory results interpreted by me: 08/07/18 20:10 Glucose 129 H Discharge - Discharge Clinical Impression: Cephalgia Qualifiers: Headache type: unspecified Headache chronicity pattern: acute headache Intractability: not intractable Qualified Code(s): R51 - Headache Condition: Stable Disposition: HOME, SELF-CARE Instructions: Headache ([facility]) Additional Instructions: Please return to the emergency department if you have any worsening, or concern of your symptoms. Please return to the emergency department if you develop chest pain, difficulty breathing, severe abdominal pain, or ongoing vomiting. Please follow-up with your primary care physician in 2-3 days and any other recommended physicians. If prescribed, take all medications as directed. If you have any questions or concerns do not hesitate to return the emergency de partment for evaluation. Follow with Dr. Melendez as previously recommended when you were discharged from the hospital Referrals: DANIEL MOSS PA-C [Primary Care Provider] - Follow up as needed
[2018-08-07 20:39] LABS: BLOOD UREA NITROGEN 9 mg/dL (7-20); CALCIUM 8.8 mg/dL (8.4-10.2); GLUCOSE 129 mg/dL (75-110); POTASSIUM 4.2 mmol/L (3.6-5.0)
[2018-08-07 20:44] LABS: ANION GAP 5 (5-19); CARBON DIOXIDE 28 mmol/L (22-30); CHLORIDE 107 mmol/L (98-107); SODIUM 139.7 mmol/L (137-145)
[2018-08-07 21:59] VITALS: BP 168/92
== END 2018-08-07 21:59 | disposition home or self-care (01) ==
LOC: ER 18:02
DX: R51 Headache (principal); I10 Essential (primary) hypertension; Z86.73 Personal history of transient ischemic attack (TIA), and cerebral infarction without residual deficits
CPT/HCPCS: 99284; 96361; 96374; 96375; 36415; 80048; A9270; J1200; J2765; J7030

== ENCOUNTER → 2018-11-08 | Outpatient (CLI) | payer MEDICARE, MEDICAID ==
--- NOTE | 2018-11-08 16:20 | RADIOLOGY REPORT (SQ) ---
EXAM DESCRIPTION: CHEST PA/LATERAL COMPLETED DATE/TIME: 11/08/2018 4:06 pm REASON FOR STUDY: MORBID OBESITY COMPARISON: AP view of the chest from 08/06/2018. EXAM PARAMETERS: NUMBER OF VIEWS: two views TECHNIQUE: Digital Frontal and Lateral radiographic views of the chest acquired. RADIATION DOSE: NA LIMITATIONS: none FINDINGS: LUNGS AND PLEURA: No consolidation, pleural effusion or pneumothorax. MEDIASTINUM AND HILAR STRUCTURES: Normal mediastinal and hilar contours. HEART AND VASCULAR STRUCTURES: The cardiac silhouette and pulmonary vasculature are within normal [place] its. BONES: No acute findings. HARDWARE: None in the chest. OTHER: No other finding. IMPRESSION: No acute cardiopulmonary process. TECHNICAL DOCUMENTATION: JOB ID: [id number] [employer]- All Rights Reserved Reading location - IP/workstation name: [email or web address]
[2018-11-08 16:27] LABS: ABSOLUTE EOSINOPHILS # (AUTO) 0.2 10^3/uL (0.0-0.6); ABSOLUTE LYMPHOCYTES (AUTO) 2.7 10^3/uL (0.5-4.7); ABSOLUTE MONOCYTES (AUTO) 0.3 10^3/uL (0.1-1.4); ABSOLUTE NEUT (AUTO) 2.7 10^3/uL (1.7-8.2); BASOPHILS % (AUTO) 0.8 % (0-2); EOSINOPHILS % (AUTO) 2.7 % (0-6); HEMATOCRIT 39.8 % (36.0-47.0); HEMOGLOBIN 12.9 g/dL (12.0-15.5); LYMPHOCYTES % (AUTO) 44.6 % (13-45); MEAN CORPUSCULAR HEMOGLOBIN 29.6 pg (27.0-33.4); MEAN CORPUSCULAR HGB CONC 32.5 g/dL (32.0-36.0); MEAN CORPUSCULAR VOLUME 91 fl (80-97); MONOCYTES % (AUTO) 5.8 % (3-13); PLATELET COUNT 263 10^3/uL (150-450); RED BLOOD COUNT 4.37 10^6/uL (3.72-5.28); RED CELL DISTRIBUTION WIDTH 13.8 % (11.5-14.0); SEGMENTED NEUTROPHILS % (AUTO) 46.1 % (42-78); TOTAL CELLS COUNTED % (AUTO) 100 %; WHITE BLOOD COUNT 5.9 10^3/uL (4.0-10.5)
[2018-11-08 16:45] LABS: ALBUMIN 4.2 g/dL (3.5-5.0); ALKALINE PHOSPHATASE 56 U/L (38-126); ANION GAP 11 (5-19); ASPARTATE AMINO TRANSFERASE 32 U/L (14-36); BILIRUBIN,DIRECT 0.3 mg/dL (0.0-0.4); BILIRUBIN,TOTAL 0.5 mg/dL (0.2-1.3); BLOOD UREA NITROGEN 12 mg/dL (7-20); CALCIUM 9.9 mg/dL (8.4-10.2); CARBON DIOXIDE 28 mmol/L (22-30); CHLORIDE 98 mmol/L (98-107); GLUCOSE 149 mg/dL (75-110); POTASSIUM 3.7 mmol/L (3.6-5.0); TOTAL PROTEIN 7.9 g/dL (6.3-8.2)
--- NOTE | 2018-11-08 20:59 | EKG REPORT ---
SEVERITY:- ABNORMAL ECG - SINUS RHYTHM FIRST DEGREE AV BLOCK LEFT ANTERIOR FASCICULAR BLOCK : Confirmed by: Amy Mendieta MD 08-Nov-2018 20:59:00
== END ==
LOC: OD 15:22
PROVIDERS: ATTEND Surgery
DX: E66.01 Morbid (severe) obesity due to excess calories (principal); I10 Essential (primary) hypertension; F41.9 Anxiety disorder, unspecified; B18.2 Chronic viral hepatitis C; Z01.810 Encounter for preprocedural cardiovascular examination; Z01.811 Encounter for preprocedural respiratory examination; Z01.812 Encounter for preprocedural laboratory examination
CPT/HCPCS: 36415; 71046; 80053; 84443; 85025; 93005; 93010

== ENCOUNTER 2018-11-21 07:11 | Emergency (ER) | payer MEDICARE, MEDICAID ==
[2018-11-21] MEDS ORDERED: IBUPROFEN 600 MG TABLET PO ONE (08:00)
[2018-11-21] MEDS ORDERED: ONDANSETRON 4 MG TAB.RAPDIS PO ONE (08:01)
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
--- NOTE | 2018-11-21 08:50 | RADIOLOGY REPORT (SQ) ---
EXAM DESCRIPTION: CT HEAD WITHOUT COMPLETED DATE/TIME: 11/21/2018 8:31 am REASON FOR STUDY: HEADACHES COMPARISON: 08/03/2018 TECHNIQUE: Axial images acquired through the brain without intravenous contrast. Images reviewed wi th bone, brain and subdural windows. Additional sagittal and coronal reconstructions were generated. Images stored on PACS. All CT scanners at this facility use dose modulation, iterative reconstruction, and/or weight based d osing when appropriate to reduce radiation dose to as low as reasonably achievable (ALARA). [facility]: Dose Right [facility]: CareDose [facility]: Dose Right [facility]: Teradose 4D [facility]: [employer] Mobile RADIATION DOSE: CT Rad equipment meets quality standard of care and radiation dose reduction techniq ues were employed. CTDIvol: 53.2 mGy. DLP: 1070 mGy-cm. mGy. LIMITATIONS: None. FINDINGS: VENTRICLES: Normal size and contour. CEREBRUM: No masses. No hemorrhage. No midline shift. No evidence for acute infarction. Normal gra y/white matter differentiation. No areas of low density in the white matter. CEREBELLUM: No masses. No hemorrhage. No alteration of density. No evidence for acute infarction. EXTRAAXIAL SPACES: No fluid collections. No masses. ORBITS AND GLOBE: No intra- or extraconal masses. Normal contour of globe without masses. CALVARIUM: No fracture. PARANASAL SINUSES: No fluid or mucosal thickening. SOFT TISSUES: No mass or hematoma. OTHER: No other significant finding. IMPRESSION: NORMAL BRAIN CT WITHOUT CONTRAST. EVIDENCE OF ACUTE STROKE: NO. COMMENT: Quality ID # [id number]: Final reports with documentation of one or more dose reduction techniques (e.g., Automated exposure control, adjustment of the mA and/or kV according to patient size, use of iterative reconstruction technique) TECHNICAL DOCUMENTATION: JOB ID: [id number] [employer]- All Rights Reserved Reading location - IP/workstation name: [email or web address]
[2018-11-21 11:00] VITALS: BP 124/78
== END 2018-11-21 10:59 | disposition home or self-care (01) ==
LOC: ER 07:11
DX: G44.209 Tension-type headache, unspecified, not intractable (principal); R11.0 Nausea; I10 Essential (primary) hypertension; Z86.73 Personal history of transient ischemic attack (TIA), and cerebral infarction without residual deficits
CPT/HCPCS: 99284; 70450; A9270 ×2; S0119

== ENCOUNTER 2018-12-21 10:24 | Emergency (ER) | payer MEDICARE, MEDICAID ==
[2018-12-21] MEDS ORDERED: ACETAMINOPHEN 325 MG TABLET PO ONE (11:41)
--- NOTE | 2018-12-21 11:41 | ER Document Report ---
ED General - General Chief Complaint: Blood Pressure Problem Stated Complaint: BLOOD PRESSURE PROBLEM Time Seen by Provider: 12/21/18 11:15 Primary Care Provider: WEST NUGENT PA-C [Primary Care Provider] - Follow up as needed TRAVEL OUTSIDE OF THE [place] IN LAST 30 DAYS: No - Related Data Allergies/Adverse Reactions: No Known Allergies Allergy (Verified 08/03/18 11:08) Past Medical History - Social History Smoking Status: Unknown if Ever Smoked Frequency of alcohol use: None Drug Abuse: None Family History: Reviewed & Not Pertinent Patient has suicidal ideation: No Patient has homicidal ideation: No - Past Medical History Cardiac Medical History: Reports: Hx Hypertension Denies: Hx Atrial Fibrillation, Hx Congestive Heart Failure, Hx Coronary Artery Disease, Hx Heart Attack, Hx Hypercholesterolemia, Hx Peripheral Vascular Disease, Hx Pulmonary Embolism, Hx Heart Murmur Pulmonary Medical History: Reports: Hx Sleep Apnea - NO MACHINE Denies: Hx Asthma, Hx Bronchitis, Hx Pneumonia, Hx Respiratory Failure, Hx Tuberculosis Neurological Medical History: Reports: Hx Cerebrovascular Accident - 2007 Endocrine Medical History: Reports: Hx Hypothyroidism. Denies: Hx Graves' Disease, Hx Hyperthyroidism Renal/ Medical History: Denies: Hx End Stage Renal Disease, Hx Kidney Stones, Hx Ovarian Cysts, Hx Peritoneal Dialysis, Hx Pelvic Inflammatory Disease Malignancy Medical History: Denies: Hx Breast Cancer, Hx Cervical Cancer, Hx Lung Cancer, Hx Ovarian Cancer Musculoskeletal Medical History: Denies Hx Arthritis, Denies Hx Fibromyalgia, Denies Hx Muscular Dystrophy, Denies Hx Systemic Lupus Erythematosus Psychiatric Medical History: Reports: Hx Depression - anxiety Denies: Hx Bipolar Disorder, Hx Post Traumatic Stress Disorder, Hx Schizophrenia Traumatic Medical History: Denies: Hx Fractures Past Surgical History: Reports: Hx Section - X1, Hx Gynecologic Surgery - uterine ablasion/bladder tuck, Hx Kidney (Renal Surgery) - feb 11, 2016 partial kidney removed due to mass, Hx Neurologic Surgery - partial left nephrectomy, Hx Orthopedic Surgery - tkr. left and right, Hx Thyroid Surgery. Denies: Hx Appendectomy, Hx Bowel Surgery, Hx Cholecystectomy, Hx Coronary Artery Bypass Graft, Hx Gastric Bypass Surgery, Hx Herniorrhaphy, Hx Hysterectomy, Hx Mastectomy, Hx Pacemaker, Hx Tonsillectomy, Hx Tubal Ligation - Immunizations Hx Diphtheria, Pertussis, Tetanus Vaccination: Yes Hx Pneumococcal Vaccination: 02/09/00 Physical Exam - Vital signs Vitals: Pulse Resp BP Pulse Ox 87 20 232/143 H 100 12/21/18 10:28 12/21/18 10:28 12/21/18 10:28 12/21/18 10:28 - Notes Notes: Patient was sent from the health department for evaluation of elevated blood pressure. He was here for routine checkup preparation of gastric bypass surgery. Blood pressure was noted to be markedly elevated and she was sent to the emergency department for further evaluation. Patient drove himself here. She reports that she did not have a blood pressure medicine at the time and took it on the way here. She has been compliant with medications. What she saw her family doctor last week her blood pressure was good and he stopped 1 of her blood pressure medications. She reports that on the way to the hospital she had a very mild headache on the top of her head. She denies any abnormal vision chest pain shortness of breath nausea vomiting or abdominal pain. No numbness or weakness extremities no slurred speech. Eyes any illegal drugs. She denies any type of dietary supplements denies any drink/caffeine ingestion or herbal preparations. Again reports that her blood pressure was normal last week. She does report history of anxiety and says that her blood pressure usually go up when she goes to the doctor she reports that she was somewhat anxious when she went to the clinic today There is medical history significant for hypertension hepatitis C acute renal failure that resolved secondary to dehydration and left nephrectomy secondary to cancer 5 years ago did not require chemoradiation. And anxiety that she takes Xanax twice a day for an been taking this on a regular basis no history of diabetes or heart disease. Social history does not smoke or drink at all Review of systems pertinent positives and negatives in HPI otherwise all the systems were reviewed and acutely negative PHYSICIAN EXAM -vital signs are noted triage note and note from triage reviewed GENERAL: Well-appearing, well-nourished and in _no acute distress HEAD: Atraumatic, normocephalic. EYES: Pupils equal round and reactive to light, extraocular movements intact, she has no nystagmus or photophobia. The face is nontender sclera anicteric, conjunctiva are normal. ENT: nares patent, oropharynx clear without exudates. Moist mucous membranes. NECK: supple without lymphadenopathy initial signs LUNGS: Breath sounds clear to auscultation bilaterally and equal. No wheezes rales or rhonchi. HEART: Regular rate and rhythm without murmurs ABDOMEN: Soft, nontender, normoactive bowel sounds. EXTREMITIES: No deformity, trace edema in the ankle which he says is chronic there is no palpable cords NEUROLOGICAL: Alert and oriented x4. Cranial nerves symmetrical smile patient is in shoulder shrug. Motor strength is symmetric bilaterally of the lower extremities. Toes are downgoing. Gait is normal. Negative Romberg and sensation intact light touch. PSYCH: Normal mood, normal affect. SKIN: Warm, Dry, normal turgor, no rashes or lesions noted. BACK-nontender in the midline Course - Re-evaluation Re-evalutation: 12/21/18 14:05 ED patient is remained stable repeat blood pressure now 180/100 I did contact her pharmacy and found that she was on Lasix Medical decision making patient was referred in for elevated blood pressure. Is come down significantly without treatment. She is asymptomatic with this. Most was related to her anxiety. Occasionally acutely lower her blood pressure at this time based on current [facility] policies. As well can be discharged home to follow with her family doctor in a week to recheck her blood pressure her headache has resolved completely. Headache is not consistent with a subarachnoid hemorrhage 12/21/18 14:06 - Vital Signs Vital signs: Temp Pulse Resp BP Pulse Ox 87 22 H 184/102 H 92 12/21/18 10:28 12/21/18 14:00 12/21/18 13:46 12/21/18 13:16 - Laboratory Result Diagrams: 12/21/18 10:50 Laboratory results interpreted by me: 12/21/18 10:50 Carbon Dioxide 33 H Discharge - Discharge Clinical Impression: Headache Qualifiers: Headache type: unspecified Headache chronicity pattern: unspecified pattern Disposition: HOME, SELF-CARE Additional Instructions: 12/20/18 13:55 Please review the discharge instructions Return to the ED if you feel worse or can follow-up with your family doctor Follow-up with your family doctor in 1 week to recheck your blood pressure Your blood pressure is elevated today needs to be rechecked again in 1 week to determine if you need to be on additional medications Forms: Elevated Blood Pressure Referrals: WEST NUGENT PA-C [Primary Care Provider] - Follow up as needed
[2018-12-21 12:18] LABS: ANION GAP 8 (5-19); BLOOD UREA NITROGEN 9 mg/dL (7-20); CALCIUM 9.5 mg/dL (8.4-10.2); CARBON DIOXIDE 33 mmol/L (22-30); CHLORIDE 101 mmol/L (98-107); GLUCOSE 98 mg/dL (75-110); POTASSIUM 4.1 mmol/L (3.6-5.0)
[2018-12-21 14:02] VITALS: BP 184/102
== END 2018-12-21 14:15 | disposition home or self-care (01) ==
LOC: ER 10:24
DX: R51 Headache (principal); I10 Essential (primary) hypertension; E03.9 Hypothyroidism, unspecified; Z86.73 Personal history of transient ischemic attack (TIA), and cerebral infarction without residual deficits; Z86.19 Personal history of other infectious and parasitic diseases; Z90.5 Acquired absence of kidney
CPT/HCPCS: 36415; 80048; A9270

== ENCOUNTER 2018-12-30 18:55 | Emergency (ER) | payer OTHER, MEDICARE, MEDICAID ==
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
[2018-12-30 21:33] LABS: ABSOLUTE EOSINOPHILS # (AUTO) 0.1 10^3/uL (0.0-0.6); ABSOLUTE MONOCYTES (AUTO) 0.7 10^3/uL (0.1-1.4); TOTAL CELLS COUNTED % (AUTO) 100 %
[2018-12-30 21:40] LABS: ABSOLUTE BASOPHILS # (AUTO) 0.1 10^3/uL (0.0-0.2); ABSOLUTE NEUT (AUTO) 8.7 10^3/uL (1.7-8.2); BASOPHILS % (AUTO) 0.5 % (0-2); EOSINOPHILS % (AUTO) 0.9 % (0-6); HEMATOCRIT 42.4 % (36.0-47.0); HEMOGLOBIN 13.8 g/dL (12.0-15.5); LYMPHOCYTES % (AUTO) 17.3 % (13-45); MEAN CORPUSCULAR HEMOGLOBIN 29.3 pg (27.0-33.4); MEAN CORPUSCULAR HGB CONC 32.6 g/dL (32.0-36.0); MEAN CORPUSCULAR VOLUME 90 fl (80-97); MONOCYTES % (AUTO) 6.3 % (3-13); PLATELET COUNT 245 10^3/uL (150-450); RED BLOOD COUNT 4.72 10^6/uL (3.72-5.28); RED CELL DISTRIBUTION WIDTH 14.4 % (11.5-14.0); WHITE BLOOD COUNT 11.6 10^3/uL (4.0-10.5)
[2018-12-30 21:48] LABS: ALBUMIN 4.5 g/dL (3.5-5.0); ALKALINE PHOSPHATASE 79 U/L (38-126); ANION GAP 8 (5-19); ASPARTATE AMINO TRANSFERASE 36 U/L (14-36); BILIRUBIN,DIRECT 0.1 mg/dL (0.0-0.4); BILIRUBIN,TOTAL 0.4 mg/dL (0.2-1.3); BLOOD UREA NITROGEN 19 mg/dL (7-20); CALCIUM 10.3 mg/dL (8.4-10.2); CARBON DIOXIDE 36 mmol/L (22-30); CHLORIDE 94 mmol/L (98-107); GLUCOSE 111 mg/dL (75-110); TOTAL PROTEIN 8.6 g/dL (6.3-8.2)
[2018-12-30] MEDS ORDERED: HYDROMORPHONE HCL INJ/PF 2 MG/ML AMPULE IV ONE (22:12)
[2018-12-30] MEDS ORDERED: ONDANSETRON HCL INJ/PF 4 MG/2 ML SDV IV ONE (22:13)
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
[2018-12-30] MEDS ORDERED: NEOMY/BACITRAC ZN/POLY OINT 15 GM TP ONE (23:34)
[2018-12-31 00:28] VITALS: BP 129/90
--- NOTE | 2018-12-31 17:39 | EKG REPORT ---
SEVERITY:- ABNORMAL ECG - SINUS TACHYCARDIA MULTIPLE VENTRICULAR PREMATURE COMPLEXES FIRST DEGREE AV BLOCK LEFT ANTERIOR FASCICULAR BLOCK BORDERLINE R WAVE PROGRESSION, ANTERIOR LEADS : Confirmed by: Javy Motta MD 31-Dec-2018 17:38:25
== END 2018-12-31 00:25 | disposition home or self-care (01) ==
LOC: ER 18:55
DX: S22.20XA Unspecified fracture of sternum, initial encounter for closed fracture (principal); S61.411A Laceration without foreign body of right hand, initial encounter; S20.01XA Contusion of right breast, initial encounter; V43.52XA Car driver injured in collision with other type car in traffic accident, initial encounter; I10 Essential (primary) hypertension; I49.3 Ventricular premature depolarization
CPT/HCPCS: 93005; 99284; 96374; 96375; 36415; 85025; 80053; 71275; 93010; J1170; J2405; J3490

== ENCOUNTER 2019-01-04 14:57 | Emergency (ER) | payer OTHER, MEDICARE, MEDICAID ==
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
--- NOTE | 2019-01-04 15:51 | RADIOLOGY REPORT (SQ) ---
EXAM DESCRIPTION: CHEST 2 VIEWS COMPLETED DATE/TIME: 01/04/2019 3:33 pm REASON FOR STUDY: cp, sob COMPARISON: None. EXAM PARAMETERS: NUMBER OF VIEWS: two views TECHNIQUE: Digital Frontal and Lateral radiographic views of the chest acquired. RADIATION DOSE: NA LIMITATIONS: none FINDINGS: LUNGS AND PLEURA: There are thin at the margins of the lung that are perpendicular to the pleural surface and extend out to it. There is no consolidation, sizeable pleural effusion or pneumo thorax. MEDIASTINUM AND HILAR STRUCTURES: Stable mediastinal and hilar contours. HEART AND VASCULAR STRUCTURES: Stable cardiomegaly. BONES: No acute findings. HARDWARE: None in the chest. OTHER: No other finding. IMPRESSION: Cardiomegaly and Lorraine B lines. Correlate clinically for signs and symptoms of volume overload/CHF. TECHNICAL DOCUMENTATION: JOB ID: [id number] [employer]- All Rights Reserved Reading location - IP/workstation name: [email or web address]
[2019-01-04 16:00] LABS: ABSOLUTE EOSINOPHILS # (AUTO) 0.2 10^3/uL (0.0-0.6); ABSOLUTE LYMPHOCYTES (AUTO) 1.7 10^3/uL (0.5-4.7); ABSOLUTE MONOCYTES (AUTO) 0.6 10^3/uL (0.1-1.4); ABSOLUTE NEUT (AUTO) 4.3 10^3/uL (1.7-8.2); BASOPHILS % (AUTO) 0.7 % (0-2); HEMATOCRIT 37.4 % (36.0-47.0); HEMOGLOBIN 12.4 g/dL (12.0-15.5); LYMPHOCYTES % (AUTO) 24.9 % (13-45); MEAN CORPUSCULAR HEMOGLOBIN 29.6 pg (27.0-33.4); MEAN CORPUSCULAR HGB CONC 33.1 g/dL (32.0-36.0); MEAN CORPUSCULAR VOLUME 90 fl (80-97); MONOCYTES % (AUTO) 8.6 % (3-13); PLATELET COUNT 247 10^3/uL (150-450); RED BLOOD COUNT 4.18 10^6/uL (3.72-5.28); RED CELL DISTRIBUTION WIDTH 14.5 % (11.5-14.0); SEGMENTED NEUTROPHILS % (AUTO) 62.8 % (42-78); TOTAL CELLS COUNTED % (AUTO) 100 %; WHITE BLOOD COUNT 6.8 10^3/uL (4.0-10.5)
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
[2019-01-04 16:22] LABS: ALBUMIN 4.2 g/dL (3.5-5.0); ALKALINE PHOSPHATASE 74 U/L (38-126); ANION GAP 10 (5-19); ASPARTATE AMINO TRANSFERASE 30 U/L (14-36); BILIRUBIN,DIRECT 0.2 mg/dL (0.0-0.4); BILIRUBIN,TOTAL 0.6 mg/dL (0.2-1.3); BLOOD UREA NITROGEN 35 mg/dL (7-20); CALCIUM 9.8 mg/dL (8.4-10.2); CARBON DIOXIDE 31 mmol/L (22-30); CHLORIDE 98 mmol/L (98-107); GLUCOSE 99 mg/dL (75-110); POTASSIUM 5.3 mmol/L (3.6-5.0); TOTAL PROTEIN 8.1 g/dL (6.3-8.2)
[2019-01-04] MEDS ORDERED: NORMAL SALINE 1000 ML 1,000 ML IV ONE (17:11)
[2019-01-04 18:15] LABS: APPEARANCE,URINE CLEAR; BILIRUBIN,URINE NEGATIVE (NEGATIVE); COLOR,URINE STRAW; GLUCOSE, URINE NEGATIVE (NEGATIVE); KETONES,URINE NEGATIVE (NEGATIVE); LEUKOCYTE ESTERASE,URINE NEGATIVE (NEGATIVE); NITRITE,URINE NEGATIVE (NEGATIVE); PROTEIN,URINE NEGATIVE (NEGATIVE); URINE SPECIFIC GRAVITY 1.006; UROBILINOGEN,URINE NEGATIVE mg/dL (<2.0)
[2019-01-04 19:17] VITALS: BP 120/66
--- NOTE | 2019-01-04 23:42 | EKG REPORT ---
SEVERITY:- ABNORMAL ECG - SINUS RHYTHM FIRST DEGREE AV BLOCK LEFT AXIS DEVIATION : Confirmed by: Samantha Howell 04-Jan-2019 23:41:45
== END 2019-01-04 19:18 | disposition home or self-care (01) ==
LOC: ER 14:57
DX: S20.219D Contusion of unspecified front wall of thorax, subsequent encounter (principal); S20.01XA Contusion of right breast, initial encounter; S30.1XXA Contusion of abdominal wall, initial encounter; V43.52XA Car driver injured in collision with other type car in traffic accident, initial encounter; R79.89 Other specified abnormal findings of blood chemistry; I11.9 Hypertensive heart disease without heart failure; I44.0 Atrioventricular block, first degree; E66.9 Obesity, unspecified; F17.200 Nicotine dependence, unspecified, uncomplicated; Z79.899 Other long term (current) drug therapy; Z85.528 Personal history of other malignant neoplasm of kidney
CPT/HCPCS: 93005; 99285; 36415; 82550; 85025; 80053; 81001; 84484; 71046; 93010; J7030

== ENCOUNTER → 2019-01-17 | Outpatient (CLI) | payer MEDICARE, MEDICAID ==
--- NOTE | 2019-01-17 08:19 | RADIOLOGY REPORT (SQ) ---
EXAM DESCRIPTION: U/S ABDOMEN LIMITED W/O DOP COMPLETED DATE/TIME: 01/17/2019 7:28 am REASON FOR STUDY: RUQ PAIN (R10.11) R10.11 RIGHT UPPER QUADRANT PAIN COMPARISON: None. TECHNIQUE: Dynamic and static grayscale images acquired of the abdomen and recorded on PACS. Additio nal selected color Doppler and spectral images recorded. LIMITATIONS: Examination is limited due to bowel gas and body habitus. FINDINGS: PANCREAS: The head and body of the pancreas are of normal echogenicity. The tail is obsc ured by overlying bowel gas. LIVER: Fatty liver. The liver measures 15.8 cm in length, normal size. LIVER VASCULATURE: Normal directional flow of the main portal vein and hepatic veins. GALLBLADDER: No stones. The gallbladder wall measures 2.4 mm, normal wall thickness. No pericholecys tic fluid. ULTRASOUND-DETECTED PANDYA'S SIGN: Negative. INTRAHEPATIC DUCTS AND COMMON DUCT: CBD measures 5.0 mm in diameter, normal. The intrahepatic ducts normal caliber. No filling defects. INFERIOR VENA CAVA: Normal flow. AORTA: The proximal and mid segments of the abdominal aorta are patent. The distal segment is obscu red by overlying bowel gas. RIGHT KIDNEY: The right kidney measures 10.0 cm in length, normal size. Normal echogenicity. No meghann id or suspicious masses. No hydronephrosis. No calcifications. PERITONEAL AND RIGHT PLEURAL SPACE: No ascites or effusions. OTHER: No other significant findings. IMPRESSION: 1. The tail of the pancreas and distal segment of the abdominal aorta are obscured by o verlying bowel gas. 2. Fatty liver. 3. Examination is otherwise unremarkable sonographically. TECHNICAL DOCUMENTATION: JOB ID: [id number]- All Rights Reserved Reading location - IP/workstation name: [email or web address]
== END ==
LOC: RAD 06:51
PROVIDERS: ATTEND Surgery
DX: K76.0 Fatty (change of) liver, not elsewhere classified (principal); R10.11 Right upper quadrant pain
CPT/HCPCS: 76705

== ENCOUNTER 2019-03-13 14:03 | Emergency (ER) | payer MEDICARE, MEDICAID ==
--- NOTE | 2019-03-13 15:19 | ER Document Report ---
ED Respiratory Problem - General Chief Complaint: Cold Symptoms Stated Complaint: FEVER Time Seen by Provider: 03/13/19 15:10 Primary Care Provider: KIRTI ABDI MD [Primary Care Provider] - Follow up as needed Mode of Arrival: Ambulatory Information source: Patient Notes: 58-year-old female presented to ED for cough cold congestion. She has been having the cough and cold for a week and a half. She states her primary care doctor did give her some promethazine to take for her cough and she is not taking very much of it at the time but she is feeling sleepy all the time. Patient is alert oriented lungs are clear respirations regular nonlabored she does have upper respiratory symptoms. TRAVEL OUTSIDE OF THE [place] IN LAST 30 DAYS: No - HPI Patient complains to provider of: Cough Onset: Other - 2 weeks Duration: Continuous Initiating Event: URI Quality of pain: No pain Cough: Nonproductive Sputum amount: None Associated symptoms: Congestion, Cough, Fever, PND, Runny nose, Sinus pain/pressure, Sore Throat Similar symptoms previously: Yes Recently seen / treated by doctor: Yes - Related Data Allergies/Adverse Reactions: No Known Allergies Allergy (Verified 01/04/19 15:10) Past Medical History - General Information source: Patient - Social History Smoking Status: Never Smoker Frequency of alcohol use: None Drug Abuse: None Lives with: Family Family History: Reviewed & Not Pertinent Patient has suicidal ideation: No Patient has homicidal ideation: No - Past Medical History Cardiac Medical History: Reports: Hx Hypertension Pulmonary Medical History: Reports: Hx Sleep Apnea - NO MACHINE Neurological Medical History: Reports: Hx Cerebrovascular Accident - 2007 Endocrine Medical History: Reports: Hx Hypothyroidism Renal/ Medical History: Reports: None Malignancy Medical History: Reports: None GI Medical History: Reports: None Psychiatric Medical History: Reports: Hx Depression - anxiety Denies: Hx Bipolar Disorder, Hx Post Traumatic Stress Disorder, Hx Schizophrenia Traumatic Medical History: Denies: Hx Fractures Past Surgical History: Reports: Hx Section - X1, Hx Gastric Bypass Surgery - Gastric sleeve, Hx Gynecologic Surgery - uterine ablasion/bladder tuck, Hx Kidney (Renal Surgery) - feb 11, 2016 partial kidney removed due to mass, Hx Orthopedic Surgery - tkr. left and right, Hx Thyroid Surgery - Thyroid removed - Immunizations Hx Diphtheria, Pertussis, Tetanus Vaccination: Yes Hx Pneumococcal Vaccination: 02/09/00 Physical Exam - Vital signs Vitals: Temp Pulse Resp BP Pulse Ox 99.3 F 117 H 16 117/63 97 03/13/19 14:31 03/13/19 14:31 03/13/19 14:31 03/13/19 14:31 03/13/19 14:31 Course - Vital Signs Vital signs: Temp Pulse Resp BP Pulse Ox 99.3 F 117 H 16 117/63 97 03/13/19 14:31 03/13/19 14:31 03/13/19 14:31 03/13/19 14:31 03/13/19 14:31 Discharge - Discharge
--- NOTE | 2019-03-13 15:31 | ER Document Report ---
ED Medical Screen (RME) - General Chief Complaint: Cold Symptoms Stated Complaint: FEVER Time Seen by Provider: 03/13/19 15:10 Primary Care Provider: KIRTI ABDI MD [Primary Care Provider] - Follow up as needed Notes: 58-year-old female presented to ED for cough cold congestion. She has been having the cough and cold for a week and a half. She states her primary care doctor did give her some promethazine to take for her cough and she is not taking very much of it at the time but she is feeling sleepy all the time. Patient is alert oriented lungs are clear respirations regular nonlabored she does have upper respiratory symptoms.. BP is 72/48 on left and 81/48 on right pulse 98 o2 sat 98 resp 18 feels very weak. I have greeted and performed a rapid initial assessment of this patient. A comprehensive ED assessment and evaluation of the patient, analysis of test results and completion of medical decision making process will be conducted by an additional ED providers. TRAVEL OUTSIDE OF THE [place] IN LAST 30 DAYS: No - Related Data Allergies/Adverse Reactions: No Known Allergies Allergy (Verified 01/04/19 15:10) Home Medications: ativan Past Medical History - Social History Frequency of alcohol use: None Drug Abuse: None - Past Medical History Cardiac Medical History: Reports: Hx Hypertension Denies: Hx Atrial Fibrillation, Hx Congestive Heart Failure, Hx Heart Attack, Hx Hypercholesterolemia Pulmonary Medical History: Reports: Hx Sleep Apnea - NO MACHINE Denies: Hx Asthma, Hx Bronchitis, Hx Pneumonia, Hx Tuberculosis Neurological Medical History: Reports: Hx Cerebrovascular Accident - 2007 Endocrine Medical History: Reports: Hx Hypothyroidism Renal/ Medical History: Denies: Hx End Stage Renal Disease, Hx Kidney Stones Musculoskeltal Medical History: Denies Hx Arthritis Psychiatric Medical History: Reports: Hx Depression - anxiety Denies: Hx Bipolar Disorder, Hx Post Traumatic Stress Disorder, Hx Schizophrenia Traumatic Medical History: Denies: Hx Fractures Past Surgical History: Reports: Hx Abdominal Surgery - Gastric sleeve, Hx Section - X1, Hx Gynecologic Surgery - uterine ablasion/bladder tuck, Hx Kidney (Renal Surgery) - feb 11, 2016 partial kidney removed due to mass, Hx Neurologic Surgery - partial left nephrectomy, Hx Orthopedic Surgery - tkr. left and right, Hx Thyroid Surgery. Denies: Hx Appendectomy, Hx Bowel Surgery, Hx Cholecystectomy, Hx Gastric Bypass Surgery, Hx Hysterectomy, Hx Mastectomy, Hx Tonsillectomy, Hx Tubal Ligation - Immunizations Hx Diphtheria, Pertussis, Tetanus Vaccination: Yes Physical Exam - Vital signs Vitals: Temp Pulse Resp BP Pulse Ox 99.3 F 117 H 16 117/63 97 03/13/19 14:31 03/13/19 14:31 03/13/19 14:31 03/13/19 14:31 03/13/19 14:31 Course - Vital Signs Vital signs: Temp Pulse Resp BP Pulse Ox 99.3 F 98 18 117/63 98 03/13/19 14:31 03/13/19 15:22 03/13/19 15:22 03/13/19 14:31 03/13/19 15:22 Doctor's Discharge - Discharge Referrals: KIRTI ABDI MD [Primary Care Provider] - Follow up as needed
[2019-03-13] MEDS ORDERED: NORMAL SALINE IV ONE (15:34)
[2019-03-13 16:15] LABS: VENOUS BLOOD BASE EXCESS 1.7 mmol/L; VENOUS BLOOD HCO3 28.7 mmol/L (20-32); VENOUS BLOOD PCO2 54.6 mmHg (35-63); VENOUS BLOOD PH 7.34 (7.30-7.42)
[2019-03-13 16:25] LABS: PROTHROMBIN TIME 13.2 SEC (11.4-15.4)
--- NOTE | 2019-03-13 16:31 | RADIOLOGY REPORT (SQ) ---
EXAM DESCRIPTION: CHEST SINGLE VIEW COMPLETED DATE/TIME: 03/13/2019 4:23 pm REASON FOR STUDY: Cough congestion COMPARISON: 03/06/2018 EXAM PARAMETERS: NUMBER OF VIEWS: One view. TECHNIQUE: Single frontal radiographic view of the chest acquired. RADIATION DOSE: NA LIMITATIONS: None. FINDINGS: LUNGS AND PLEURA: No opacities, masses or pneumothorax. No pleural effusion. MEDIASTINUM AND HILAR STRUCTURES: No masses. Contour normal. HEART AND VASCULAR STRUCTURES: Enlarged, stable. Normal vasculature. BONES: No acute findings. HARDWARE: None in the chest. OTHER: No other significant finding. IMPRESSION: No evidence of acute cardiopulmonary process. TECHNICAL DOCUMENTATION: JOB ID: [id number] [employer]- All Rights Reserved Reading location - IP/workstation name: [email or web address]
[2019-03-13 16:46] LABS: ABSOLUTE LYMPHOCYTES (AUTO) 2.2 10^3/uL (0.5-4.7); ABSOLUTE MONOCYTES (AUTO) 0.8 10^3/uL (0.1-1.4); ABSOLUTE NEUT (AUTO) 1.3 10^3/uL (1.7-8.2); BASOPHILS % (AUTO) 0.6 % (0-2); EOSINOPHILS % (AUTO) 0.2 % (0-6); HEMATOCRIT 38.9 % (36.0-47.0); HEMOGLOBIN 13.1 g/dL (12.0-15.5); MEAN CORPUSCULAR HEMOGLOBIN 29.3 pg (27.0-33.4); MEAN CORPUSCULAR HGB CONC 33.6 g/dL (32.0-36.0); MEAN CORPUSCULAR VOLUME 87 fl (80-97); MONOCYTES % (AUTO) 18.6 % (3-13); PLATELET COUNT 203 10^3/uL (150-450); RED BLOOD COUNT 4.47 10^6/uL (3.72-5.28); RED CELL DISTRIBUTION WIDTH 14.5 % (11.5-14.0); SEGMENTED NEUTROPHILS % (AUTO) 29.6 % (42-78); TOTAL CELLS COUNTED % (AUTO) 100 %; WHITE BLOOD COUNT 4.3 10^3/uL (4.0-10.5)
[2019-03-13 16:50] LABS: ALKALINE PHOSPHATASE 70 U/L (38-126); ANION GAP 11 (5-19); ASPARTATE AMINO TRANSFERASE 60 U/L (14-36); BILIRUBIN,DIRECT 0.4 mg/dL (0.0-0.4); BILIRUBIN,TOTAL 0.5 mg/dL (0.2-1.3); BLOOD UREA NITROGEN 23 mg/dL (7-20); CALCIUM 9.4 mg/dL (8.4-10.2); CARBON DIOXIDE 28 mmol/L (22-30); CHLORIDE 100 mmol/L (98-107); CREATINE KINASE 478 U/L (30-135); GLUCOSE 97 mg/dL (75-110); POTASSIUM 4.3 mmol/L (3.6-5.0); TOTAL PROTEIN 7.7 g/dL (6.3-8.2)
[2019-03-13 18:02] LABS: APPEARANCE,URINE SLIGHTLY-CLOUDY; BILIRUBIN,URINE NEGATIVE (NEGATIVE); GLUCOSE, URINE NEGATIVE (NEGATIVE); KETONES,URINE NEGATIVE (NEGATIVE); PROTEIN,URINE 30 mg/dL (NEGATIVE); URINE SPECIFIC GRAVITY 1.015; UROBILINOGEN,URINE NEGATIVE mg/dL (<2.0)
[2019-03-13 18:03] LABS: COLOR,URINE YELLOW
[2019-03-13] MEDS ORDERED: BENZONATATE 100 MG CAPSULE PO ONE (18:51)
[2019-03-13] MEDS ORDERED: GUAIFENESIN/D-METHORPHAN (200-20 MG) SYRUP 10 ML PO ONE (18:51)
--- NOTE | 2019-03-13 20:13 | ER Document Report ---
Entered by LILY BENNETT SCRIBE 03/13/19 1629 Acting as scribe for:KENNEDY BENITEZ MD ED General - General Chief Complaint: Cold Symptoms Stated Complaint: FEVER Time Seen by Provider: 03/13/19 15:10 Primary Care Provider: KIRTI ABDI MD [ASSOCIATE] - Follow up as needed Information source: Patient Notes: 58 year old female presents to the emergency department complaining of cold symptoms. Patient reports that she stayed in bed all day yesterday and did not drink any water. Patient stated that she saw her PCP 3 days prior and was diagnosed with bronchitis and was "worried it turned into Pneumonia". Patient reports feeling "hot and flustered" last night and denies any sputum production. Patient states she is up to date on flu shot. Patient was seen here on 08/03/2018 [place] the [place] and not drinking water. She had gone into acute renal failure at that time with a serum creatinine of 6.58, with her baseline being <1.0. She did return to her baseline over the next few days with IV hydration. The patient has had the gastric sleeve procedure. She states she knows she is supposed to drink a lot of fluids and water, but that she does not like to do this. TRAVEL OUTSIDE OF THE [place] IN LAST 30 DAYS: No - Related Data Allergies/Adverse Reactions: No Known Allergies Allergy (Verified 01/04/19 15:10) Home Medications: ativan Past Medical History - General Information source: Patient - Social History Smoking Status: Never Smoker Cigarette use (# per day): No Chew tobacco use (# tins/day): No Smoking Education Provided: No Frequency of alcohol use: None Drug Abuse: None Occupation: Unemployed Lives with: Family Family History: Reviewed & Not Pertinent Patient has suicidal ideation: No Patient has homicidal ideation: No - Past Medical History Cardiac Medical History: Reports: Hx Hypertension Pulmonary Medical History: Reports: Hx Sleep Apnea - NO MACHINE Neurological Medical History: Reports: Hx Cerebrovascular Accident - 2007 Endocrine Medical History: Reports: Hx Hypothyroidism Psychiatric Medical History: Reports: Hx Anxiety, Hx Depression Past Surgical History: Reports: Hx Abdominal Surgery - Gastric sleeve, Hx Section - X1, Hx Gynecologic Surgery - uterine ablasion/bladder tuck, Hx Kidney (Renal Surgery) - feb 11, 2016 partial left nephrectomy removed due to mass, Hx Orthopedic Surgery - Bilateral total knee replacement, Hx Thyroid Surgery - Immunizations Hx Diphtheria, Pertussis, Tetanus Vaccination: Yes Hx Pneumococcal Vaccination: 02/09/00 Review of Systems - Review of Systems Constitutional: See HPI, Fever EENT: No symptoms reported Cardiovascular: No symptoms reported Respiratory: Cough. denies: Short of breath, Wheezing Gastrointestinal: No symptoms reported Genitourinary: No symptoms reported Female Genitourinary: No symptoms reported Musculoskeletal: No symptoms reported Skin: No symptoms reported Hematologic/Lymphatic: No symptoms reported Neurological/Psychological: No symptoms reported -: Yes All other systems reviewed and negative Physical Exam - Vital signs Vitals: Temp Pulse Resp BP Pulse Ox 99.3 F 117 H 16 117/63 97 03/13/19 14:31 03/13/19 14:31 03/13/19 14:31 03/13/19 14:31 03/13/19 14:31 - Notes Notes: General: Alert, appears well. HEENT: Normocephalic. Atraumatic. PERRL. Extraocular movements intact. Oropharynx clear. Mild nasal congestion. Neck: Supple. Non-tender. Respiratory: No respiratory distress. Chest status: Non-tender Breath sounds: Normal- there is minimal rhonchi with forced cough. Cardiovascular: Regular rate and rhythm. Abdominal: Normal Inspection. Non-tender. No distension. Normal Bowel Sounds. Back: No gross abnormalities. Extremities: Moves all four extremities. Upper extremities: Normal inspection. Normal ROM. Lower extremities: Normal inspection. No edema. Normal ROM. Neurological: Normal cognition. AAOx4. Normal speech. Psychological: Normal affect. Normal Mood. Skin: Warm. Dry. Normal color. Course - Re-evaluation Re-evalutation: 03/13/19 18:55 The patient's creatinine was 2.23 with a BUN of 23, urinalysis had 29 casts. This along with the patient's low blood pressure is consistent with her allowing herself to become dehydrated again by not drinking fluids. She has received almost 3 L of fluid at this time, her blood pressure is 112/57. She does have a frequent nonproductive, congested type cough consistent with her viral upper respiratory tract infection. 03/13/19 20:06 She has received 4 L of IV fluid at this time. She is again reminded how important it is that she drink fluids whether she feels like it or not. She has not been nauseous, has not been vomiting, and does not have a good excuse for why she just laid around all day yesterday and did not drink fluids. - Vital Signs Vital signs: Temp Pulse Resp BP Pulse Ox 98.3 F 98 21 H 102/59 L 98 03/13/19 19:00 03/13/19 15:22 03/13/19 19:00 03/13/19 19:00 03/13/19 19:00 - Laboratory Result Diagrams: 03/13/19 15:50 03/13/19 15:50 Laboratory results interpreted by me: 03/13/19 03/13/19 03/13/19 15:50 15:50 17:35 RDW 14.5 H Lymph % (Auto) 51.0 H [place] % (Auto) 18.6 H Absolute Neuts (auto) 1.3 L Seg Neutrophils % 29.6 L BUN 23 H Creatinine 2.23 H Est GFR ( Amer) 28 L Est GFR (MDRD) Non-Af 23 L AST 60 H Creatine Kinase 478 H Urine Protein 30 H Urine Blood SMALL H - Diagnostic Test Radiology reviewed: Image reviewed, Reports reviewed - Chest x-ray does not show acute cardiopulmonary process. Critical Care Note - Critical Care Note Total time excluding time spent on procedures (mins): 35 Discharge - Discharge Clinical Impression: Viral upper respiratory tract infection with cough, Dehydration Acute renal failure Qualifiers: Acute renal failure type: unspecified Qualified Code(s): N17.9 - Acute kidney failure, unspecified Hypotension Qualifiers: Hypotension type: unspecified hypotension type Qualified Code(s): I95.9 - Hypotension, unspecified Condition: Stable Disposition: HOME, SELF-CARE Additional Instructions: Upper Respiratory Illness: You have a viral infection of the respiratory passages -- a "cold." This common infection causes nasal congestion, drainage, and often sore throat and cough. It is caused by a virus and is highly contagious. The disease usually lasts a week or more, though the worst symptoms are usually over in 3 or 4 days. There is no "cure" for the viral infection -- it must run its course. If there is a complication, such as bacterial infection in the nose, sinuses, middle ear, or bronchial tubes, antibiotics may be required, but antibiotics won't affect the virus. If you smoke, you should STOP!! Drink plenty of fluids. A humidifier may help. An expectorant medication or decongestant may make you more comfortable. Use acetaminophen or ibuprofen for fever or aches. See the doctor if fever persists over two or three days, if there is any significant worsening of your symptoms, or if you simply fail to improve as expected. Dehydration: Dehydration can result from vomiting or diarrhea, fever, or decreased intake of fluids. If severe, hospitalization and intravenous fluids may be required. Most cases are treated at home with fluids by mouth. For the next 24 hours, drink lots of clear fluids. In mild cases, this can be soda pop or sports drinks. For more severe dehydration, the doctor may recommend special fluids such as Pedialyte or Lytren. Try to get three liters (3 quarts) of fluid per day. If vomiting occurs, continue to drink the fluids frequently (every 15 to 20 minutes), but in small amounts (one or two ounces). Depending on the type of dehydration, the doctor may prescribe antinausea medicine or potassium replacements. Call the doctor or return for re-examination if you become progressively weak, vomit repeatedly, or have other new symptoms. Your dehydration is due to not drinking fluids. It has caused injury to your kidneys, however not nearly as severe as when this happened this past summer. It is very important that you are continuously sipping on fluids throughout the day and the night to correct your dehydration and help your kidney function return back to normal. Take the Tessalon Perles as prescribed to help control your cough. You may also take Robitussin-DM, as this will also help reduce your coughing. Upper respiratory tract infections can sometimes take several weeks to completely get over. You should follow-up with your primary care provider in the next 1 to 2 days for recheck if you are not improving, or if you do not feel you are keeping down plenty of fluids. RETURN TO THE EMERGENCY ROOM IF ANY NEW OR WORSENING SYMPTOMS. Prescriptions: Benzonatate [Tessalon Perles 100 mg Capsule] 100 mg PO ASDIR PRN #30 capsule PRN Reason: Referrals: KIRTI ABDI MD [ASSOCIATE] - Follow up as needed Scribe Attestation: 03/13/19 17:27 I personally performed the services described in the documentation, reviewed and edited the documentation which was dictated to the scribe in my presence, and it accurately records my words and actions. I personally performed the services described in the documentation, reviewed and edited the documentation which was dictated to the scribe in my presence, and it accurately records my words and actions.
[2019-03-13 20:20] VITALS: BP 106/62
== END 2019-03-13 20:19 | disposition home or self-care (01) ==
LOC: ER 14:03
DX: J06.9 Acute upper respiratory infection, unspecified (principal); B97.89 Other viral agents as the cause of diseases classified elsewhere; E86.0 Dehydration; N17.9 Acute kidney failure, unspecified; I95.9 Hypotension, unspecified; R50.9 Fever, unspecified; R05 Cough; I10 Essential (primary) hypertension; F41.9 Anxiety disorder, unspecified; Z79.899 Other long term (current) drug therapy; Z98.84 Bariatric surgery status
CPT/HCPCS: 99285; 96360; 96361; 36415; 87040; 82962; 82550; 83605; 85025; 85610; 80053; 81001; 84484; 82803; 71045; A9270 ×2; J7030; J3490

== ENCOUNTER → 2019-04-25 | Outpatient (CLI) | payer MEDICARE, MEDICAID ==
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
== END ==
LOC: WI 12:40
PROVIDERS: ATTEND Physician Assistant
DX: N63.15 Unspecified lump in the right breast, overlapping quadrants (principal)
CPT/HCPCS: 77066

== ENCOUNTER 2019-07-06 12:41 | Emergency (ER) | payer MEDICARE, MEDICAID ==
[2019-07-06] MEDS ORDERED: NORMAL SALINE 1000 ML 1,000 ML IV ONE (13:12)
--- NOTE | 2019-07-06 13:14 | ER Document Report ---
ED Medical Screen (RME) - General Chief Complaint: Flank Pain Stated Complaint: FLANK PAIN Time Seen by Provider: 07/06/19 13:08 Primary Care Provider: WEST NUGENT PA-C [Primary Care Provider] - Follow up as needed Mode of Arrival: Ambulatory Information source: Patient Notes: 58-year-old female presented to ED for complaint of left flank pain. She denies any nausea or vomiting. She states she gets frequent flank pain and usually needs IV fluids. She has had renal cancer in the past and had part of it kidney removed. She is also had bilateral knee replacements thyroidectomy due to precancerous cells and she recently had a gastric sleeve. She is alert oriented respirations regular and unlabored speaking in full sentences walks with even steady gait. I have greeted and performed a rapid initial assessment of this patient. A comprehensive ED assessment and evaluation of the patient, analysis of test results and completion of medical decision making process will be conducted by an additional ED providers. TRAVEL OUTSIDE OF THE [place] IN LAST 30 DAYS: No - Related Data Allergies/Adverse Reactions: No Known Allergies Allergy (Verified 01/04/19 15:10) Past Medical History - Past Medical History Cardiac Medical History: Reports: Hx Hypertension Denies: Hx Atrial Fibrillation, Hx Congestive Heart Failure, Hx Heart Attack, Hx Hypercholesterolemia Pulmonary Medical History: Reports: Hx Sleep Apnea - NO MACHINE Denies: Hx Asthma, Hx Bronchitis, Hx Pneumonia, Hx Tuberculosis Neurological Medical History: Reports: Hx Cerebrovascular Accident - 2007 Endocrine Medical History: Reports: Hx Hypothyroidism Renal/ Medical History: Denies: Hx End Stage Renal Disease, Hx Kidney Stones Musculoskeltal Medical History: Denies Hx Arthritis Psychiatric Medical History: Reports: Hx Anxiety, Hx Depression Denies: Hx Bipolar Disorder, Hx Post Traumatic Stress Disorder, Hx Schizophrenia Traumatic Medical History: Denies: Hx Fractures Past Surgical History: Reports: Hx Abdominal Surgery - Gastric sleeve, Hx Pedro arean Section - X1, Hx Gynecologic Surgery - uterine ablasion/bladder tuck, Hx Kidney (Renal Surgery) - feb 11, 2016 partial left nephrectomy removed due to mass, Hx Neurologic Surgery - partial left nephrectomy, Hx Orthopedic Surgery - Bilateral total knee replacement, Hx Thyroid Surgery. Denies: Hx Appendectomy, Hx Bowel Surgery, Hx Cholecystectomy, Hx Gastric Bypass Surgery, Hx Hysterectomy, Hx Mastectomy, Hx Tonsillectomy, Hx Tubal Ligation - Immunizations Hx Diphtheria, Pertussis, Tetanus Vaccination: Yes Doctor's Discharge - Discharge Referrals: WEST NUGENT PA-C [Primary Care Provider] - Follow up as needed
[2019-07-06 13:30] LABS: APPEARANCE,URINE CLEAR; BILIRUBIN,URINE NEGATIVE (NEGATIVE); COLOR,URINE YELLOW; GLUCOSE, URINE NEGATIVE (NEGATIVE); KETONES,URINE NEGATIVE (NEGATIVE); LEUKOCYTE ESTERASE,URINE NEGATIVE (NEGATIVE); NITRITE,URINE NEGATIVE (NEGATIVE); PROTEIN,URINE NEGATIVE (NEGATIVE); URINE SPECIFIC GRAVITY 1.008; UROBILINOGEN,URINE NEGATIVE mg/dL (<2.0)
[2019-07-06 13:50] LABS: ABSOLUTE EOSINOPHILS # (AUTO) 0.1 10^3/uL (0.0-0.6); ABSOLUTE MONOCYTES (AUTO) 0.3 10^3/uL (0.1-1.4); BASOPHILS % (AUTO) 1.1 % (0-2); EOSINOPHILS % (AUTO) 2.4 % (0-6); HEMATOCRIT 39.2 % (36.0-47.0); HEMOGLOBIN 13.2 g/dL (12.0-15.5); LYMPHOCYTES % (AUTO) 57.8 % (13-45); MEAN CORPUSCULAR HEMOGLOBIN 28.1 pg (27.0-33.4); MEAN CORPUSCULAR HGB CONC 33.6 g/dL (32.0-36.0); MEAN CORPUSCULAR VOLUME 84 fl (80-97); MONOCYTES % (AUTO) 9.1 % (3-13); PLATELET COUNT 155 10^3/uL (150-450); RED BLOOD COUNT 4.68 10^6/uL (3.72-5.28); RED CELL DISTRIBUTION WIDTH 13.9 % (11.5-14.0); SEGMENTED NEUTROPHILS % (AUTO) 29.6 % (42-78); TOTAL CELLS COUNTED % (AUTO) 100 %; WHITE BLOOD COUNT 3.5 10^3/uL (4.0-10.5)
[2019-07-06 14:26] LABS: ALBUMIN 3.9 g/dL (3.5-5.0); ALKALINE PHOSPHATASE 47 U/L (38-126); ANION GAP 6 (5-19); ASPARTATE AMINO TRANSFERASE 61 U/L (14-36); BILIRUBIN,DIRECT 0.1 mg/dL (0.0-0.4); BILIRUBIN,TOTAL 0.6 mg/dL (0.2-1.3); BLOOD UREA NITROGEN 15 mg/dL (7-20); CALCIUM 9.8 mg/dL (8.4-10.2); CARBON DIOXIDE 30 mmol/L (22-30); CHLORIDE 102 mmol/L (98-107); GLUCOSE 104 mg/dL (75-110); POTASSIUM 4.7 mmol/L (3.6-5.0); TOTAL PROTEIN 7.3 g/dL (6.3-8.2)
== END 2019-07-06 14:34 | disposition left against medical advice (07) ==
LOC: ER 12:41
DX: R10.9 Unspecified abdominal pain (principal); I10 Essential (primary) hypertension; Z86.73 Personal history of transient ischemic attack (TIA), and cerebral infarction without residual deficits; Z85.53 Personal history of malignant neoplasm of renal pelvis; Z90.5 Acquired absence of kidney
CPT/HCPCS: 36415; 80053; 81001; 85025; 99284

== ENCOUNTER 2019-08-10 15:00 | Emergency (ER) | payer MEDICARE, MEDICAID ==
[2019-08-10 15:13] VITALS: BP 110/70
--- NOTE | 2019-08-10 16:18 | ER Document Report ---
HPI - HPI Patient complains to provider of: Left ear fullness Time Seen by Provider: 08/10/19 16:08 Pain Level: Denies Context: 58-year-old female past medical history significant for hypertension, hypothyroidism presents to the emergency room complaining of persistent left ear discomfort for the past 3 weeks. States it feels full and like she is underwater. States she has been using Q-tips without relief. She denies any other trauma or injury. No recent swimming or flying. No travel. Associated Symptoms: None Exacerbated by: Denies Relieved by: Denies Similar symptoms previously: No Recently seen / treated by doctor: No - ROS Systems Reviewed and Negative: Yes All other systems reviewed and negative - CONSTITUTIONAL Constitutional: DENIES: Fever, Chills - EENT EENT: DENIES: Sore Throat, Ear Pain, Eye problems Notes: Left ear fullness - NEURO Neurology: DENIES: Headache, Weakness, Vision blurred, Dizzinesss / Vertigo - CARDIOVASCULAR Cardiovascular: DENIES: Chest pain - RESPIRATORY Respiratory: DENIES: Trouble Breathing, Coughing - GASTROINTESTINAL Gastrointestinal: DENIES: Abdominal Pain, Black / Bloody Stools - URINARY Urinary: DENIES: Dysuria, Urgency, Frequency - REPRODUCTIVE Reproductive: DENIES: : - MUSCULOSKELETAL Musculoskeletal: DENIES: Extremity pain Past Medical History - General Information source: Patient - Social History Smoking Status: Never Smoker Chew tobacco use (# tins/day): No Frequency of alcohol use: None Drug Abuse: None Family History: Reviewed & Not Pertinent - Past Medical History Cardiac Medical History: Reports: Hx Hypertension Denies: Hx Atrial Fibrillation, Hx Congestive Heart Failure, Hx Heart Attack, Hx Hypercholesterolemia Pulmonary Medical History: Reports: Hx Sleep Apnea - NO MACHINE Denies: Hx Asthma, Hx Bronchitis, Hx Pneumonia, Hx Tuberculosis Neurological Medical History: Reports: Hx Cerebrovascular Accident - 2007 Endocrine Medical History: Reports: Hx Hypothyroidism Renal/ Medical History: Denies: Hx End Stage Renal Disease, Hx Kidney Stones Musculoskeletal Medical History: Denies Hx Arthritis Psychiatric Medical History: Reports: Hx Anxiety, Hx Depression Denies: Hx Bipolar Disorder, Hx Post Traumatic Stress Disorder, Hx Schizophrenia Traumatic Medical History: Denies: Hx Fractures Past Surgical History: Reports: Hx Abdominal Surgery - Gastric sleeve, Hx Section - X1, Hx Gynecologic Surgery - uterine ablasion/bladder tuck, Hx Kidney (Renal Surgery) - feb 11, 2016 partial left nephrectomy removed due to mass, Hx Neurologic Surgery - partial left nephrectomy, Hx Orthopedic Surgery - Bilateral total knee replacement, Hx Thyroid Surgery. Denies: Hx Appendectomy, Hx Bowel Surgery, Hx Cholecystectomy, Hx Gastric Bypass Surgery, Hx Hysterectomy, Hx Mastectomy, Hx Tonsillectomy, Hx Tubal Ligation - Immunizations Hx Diphtheria, Pertussis, Tetanus Vaccination: Yes Hx Pneumococcal Vaccination: 02/09/00 Vertical Provider Document - CONSTITUTIONAL Agree With Documented VS: Yes Exam Limitations: No Limitations General Appearance: Mild Distress - INFECTION CONTROL TRAVEL OUTSIDE OF THE [place] IN LAST 30 DAYS: No - HEENT HEENT: Atraumatic, Normocephalic. negative: Pharyngeal Exudate, Pharyngeal Tenderness, Pharyngeal Erythema Notes: Right tympanic membrane intact without erythema or swelling, right ear canal without erythema or swelling. Left tympanic membrane retracted with clear fluid noted behind the TM. Left outer ear canal with erythema and swelling. No active discharge or draining noted. - NECK Neck: Normal Inspection, Supple, Thyroid Normal - RESPIRATORY Respiratory: Breath Sounds Normal, No Respiratory Distress, Chest Non-Tender. negative: Rales, Rhonchi, Wheezing - CARDIOVASCULAR Cardiovascular: Regular Rate, Regular Rhythm, No Murmur - NEURO Level of Consciousness: Awake, Alert Motor/Sensory: No Motor Deficit, No Sensory Deficit - DERM Integumentary: Warm, Dry, No Rash Course - Vital Signs Vital signs: Temp Pulse Resp BP Pulse Ox 98.6 F 77 18 110/70 98 08/10/19 16:07 08/10/19 15:12 08/10/19 15:12 08/10/19 15:12 08/10/19 15:12 Discharge - Discharge Clinical Impression: Left otitis externa Qualifiers: Otitis externa type: unspecified type Chronicity: acute Qualified Code(s): H60.502 - Unspecified acute noninfective otitis externa, left ear Eustachian tube dysfunction Qualifiers: Laterality: left Qualified Code(s): H69.82 - Other specified disorders of Eustachian tube, left ear Condition: Stable Disposition: HOME, SELF-CARE Instructions: Ear Barotrauma ([facility]), Use of Ear Drops ([facility]), Otitis Externa ([facility]) Additional Instructions: Do not put Q-tips into your inner ear. Use eardrops as prescribed. Nasal spray as prescribed. Recheck with your primary care physician if not improving in 2 t o 3 days. Return to the emergency room for any new or worsening symptoms. Prescriptions: Neomy Sulf/Polymyx B Sulf/Hc [Cortisporin Otic Susp] 4 drop LFT_EAR TID #1 bottle Fluticasone Propionate [Flonase Nasal [place] 50 Mcg/[place] 16 gm] 2 sprays NASL DAILY #1 inhaler Referrals: WEST NUGENT PA-C [Primary Care Provider] - Follow up as needed
== END 2019-08-10 16:23 | disposition home or self-care (01) ==
LOC: ER 15:00
DX: H60.502 Unspecified acute noninfective otitis externa, left ear (principal); H69.82 Other specified disorders of Eustachian tube, left ear; I10 Essential (primary) hypertension; Z86.73 Personal history of transient ischemic attack (TIA), and cerebral infarction without residual deficits
CPT/HCPCS: 99282

== ENCOUNTER 2020-02-23 17:32 | Inpatient (IN) | payer MEDICARE, MEDICAID ==
--- NOTE | 2020-02-23 18:27 | ER Document Report ---
ED General - General Chief Complaint: Altered Mental Status Stated Complaint: AMS Time Seen by Provider: 02/23/20 18:14 TRAVEL OUTSIDE OF THE [place] IN LAST 30 DAYS: No - HPI Notes: Patient is a 59-year old female who presents emergency department for evaluation of altered mental status. The patient is not able to offer any significant history, entire history is obtained from nursing and EMS records. Evidently the patient was arrested yesterday for driving under the influence. It was reported that she was abusing her Xanax. She was released from custodial this morning. Her /boyfriend found her at home today altered, there is suspicion that she may have taken too much Xanax. The patient cannot answer any meaningful questions at this time. - Related Data Allergies/Adverse Reactions: No Known Allergies Allergy (Verified 08/10/19 16:12) Past Medical History - General Information source: [facility] Records - Social History Smoking Status: Unknown if Ever Smoked Family History: Reviewed & Not Pertinent - Past Medical History Cardiac Medical History: Reports: Hx Hypertension Denies: Hx Atrial Fibrillation, Hx Congestive Heart Failure, Hx Heart Attack, Hx Hypercholesterolemia Pulmonary Medical History: Reports: Hx Sleep Apnea - NO MACHINE Denies: Hx Asthma, Hx Bronchitis, Hx Pneumonia, Hx Tuberculosis Neurological Medical History: Reports: Hx Cerebrovascular Accident - 2007 Endocrine Medical History: Reports: Hx Hypothyroidism Renal/ Medical History: Denies: Hx End Stage Renal Disease, Hx Kidney Stones Musculoskeletal Medical History: Denies Hx Arthritis Psychiatric Medical History: Reports: Hx Anxiety, Hx Depression Denies: Hx Bipolar Disorder, Hx Post Traumatic Stress Disorder, Hx Schizophrenia Traumatic Medical History: Denies: Hx Fractures Past Surgical History: Reports: Hx Abdominal Surgery - Gastric sleeve, Hx Section - X1, Hx Gynecologic Surgery - uterine ablasion/bladder tuck, Hx Kidney (Renal Surgery) - feb 11, 2016 partial left nephrectomy removed due to mass, Hx Neurologic Surgery - partial left nephrectomy, Hx Orthopedic Surgery - Bilateral total knee replacement, Hx Thyroid Surgery. Denies: Hx Appendectomy, Hx Bowel Surgery, Hx Cholecystectomy, Hx Gastric Bypass Surgery, Hx Hysterectomy, Hx Mastectomy, Hx Tonsillectomy, Hx Tubal Ligation - Immunizations Hx Diphtheria, Pertussis, Tetanus Vaccination: Yes Hx Pneumococcal Vaccination: 02/09/00 Review of Systems - Review of Systems -: Yes ROS unobtainable due to patient's medical condition Physical Exam - Vital signs Vitals: Temp 98.6 F 02/23/20 17:32 - Notes Notes: This is a disheveled appearing 59-year-old female who appears her stated age, no acute distress. She has a very flat affect, staring off into space. She answer s most questions with her birthdate. She is slow to respond to all questions, even when she rarely answers appropriately. Head is normocephalic and appears atraumatic. Pupils are 7 mm, round and equal, reactive, but slightly sluggish. Oral mucosa is moist. Uvula is midline. Heart is regular rate and rhythm, lungs are clear to auscultation bilaterally. Abdomen is soft, nontender, normoactive bowel sounds. Patient is drowsy. She cannot answer any orientation questions. She cannot follow directions. She moves all 4 extremities spontaneously. She has no gross facial asymmetry. Sensation appears to be intact all 4. Course - Re-evaluation Re-evalutation: 02/23/20 18:26 Patient presents to the emergency department for evaluation. Laboratory investigations and imaging were as ordered. She is currently on the monitor. She is hypertensive. She does have a history of hypertension, has been on lisinopril in the past. I am unsure as to whether not she is taken anything. Certainly this could be signs of endorgan damage. CT scan of the head has been ordered. I am waiting for remainder of labs. In the meantime, since I do have a suspicion of substance abuse contributing to this, and she is unable to contribute to her care in any way, I do believe a 24-hour hold paperwork is in order. She is currently stable, we will continue to monitor. 02/23/20 22:29 Patient has been on a Cardene drip. Her blood pressure is being maintained between 140 and 160 systolic. She seems slightly more alert, is able to tell me where she is, but she incorrectly identifies the name of her daughter who is sitting next to her. Unfortunately her daughter is unable to give me anything more in the way of history. The patient is slightly more alert, but she continues to be significantly confused. I strongly suspect that this patient's altered mental status is likely secondary to polysubstance abuse and not hypertensive encephalopathy, but carding treatment must continue and is appropriately controlling her blood pressure. I will discuss this patient with saxophone assembler for ICU admission. - Vital Signs Vital signs: Temp Pulse Resp BP Pulse Ox 99.2 F 95 18 153/93 H 100 02/25/20 01:00 02/25/20 01:00 02/25/20 01:00 02/25/20 01:00 02/25/20 01:00 - Laboratory Results Result Diagrams: 02/24/20 06:38 02/24/20 06:38 Laboratory Results Interpreted: 02/23/20 02/23/20 02/23/20 18:16 18:16 18:41 Lymph % (Auto) 11.9 L [place] % (Auto) 2.9 L Seg Neutrophils % 84.6 H VBG HCO3 32.3 H Sodium 136.3 L Carbon Dioxide 35 H Anion Gap 3 L Est GFR (MDRD) Non-Af 52 L Glucose 133 H Albumin 3.4 L Urine Protein Urine Ketones Urine Blood Urine Urobilinogen Ur Leukocyte Esterase Salicylates < 1.0 L Acetaminophen < 10 L 02/23/20 18:41 Lymph % (Auto) [place] % (Auto) Seg Neutrophils % VBG HCO3 Sodium Carbon Dioxide Anion Gap Est GFR (MDRD) Non-Af Glucose Albumin Urine Protein 100 H Urine Ketones TRACE H Urine Blood SMALL H Urine Urobilinogen 2.0 H Ur Leukocyte Esterase SMALL H Salicylates Acetaminophen Critical Laboratory Results Reviewed: No Critical Results - Radiology Results Radiology Results Interpreted: 02/23/20 22:[address] 02/23/20 00:00 IMPRESSION: NORMAL BRAIN CT WITHOUT CONTRAST. EVIDENCE OF ACUTE STROKE: NO. Critical Radiology Results Reviewed: No Critical Results Critical Care Note - Critical Care Note Total time excluding time spent on procedures (mins): 24 Discharge - Discharge Clinical Impression: Polysubstance abuse, Hypertensive emergency Altered mental status Qualifiers: Altered mental status type: unspecified Qualified Code(s): R41.82 - Altered mental status, unspecified Condition: Stable Disposition: ADMITTED INPATIENT Admitting Provider: Dolly (Short Order Fry Cook) Unit Admitted: ICU
[2020-02-23 18:29] LABS: ABSOLUTE LYMPHOCYTES (AUTO) 0.9 10^3/uL (0.5-4.7); ABSOLUTE MONOCYTES (AUTO) 0.2 10^3/uL (0.1-1.4); ABSOLUTE NEUT (AUTO) 6.2 10^3/uL (1.7-8.2); BASOPHILS % (AUTO) 0.5 % (0-2); EOSINOPHILS % (AUTO) 0.1 % (0-6); HEMATOCRIT 37.7 % (36.0-47.0); HEMOGLOBIN 12.8 g/dL (12.0-15.5); LYMPHOCYTES % (AUTO) 11.9 % (13-45); MEAN CORPUSCULAR HGB CONC 33.9 g/dL (32.0-36.0); MEAN CORPUSCULAR VOLUME 85 fl (80-97); MONOCYTES % (AUTO) 2.9 % (3-13); PLATELET COUNT 265 10^3/uL (150-450); RED BLOOD COUNT 4.41 10^6/uL (3.72-5.28); RED CELL DISTRIBUTION WIDTH 13.9 % (11.5-14.0); SEGMENTED NEUTROPHILS % (AUTO) 84.6 % (42-78); TOTAL CELLS COUNTED % (AUTO) 100 %; WHITE BLOOD COUNT 7.3 10^3/uL (4.0-10.5)
[2020-02-23 18:49] LABS: ALBUMIN 3.4 g/dL (3.5-5.0); ALKALINE PHOSPHATASE 89 U/L (38-126); ASPARTATE AMINO TRANSFERASE 20 U/L (14-36); BILIRUBIN,DIRECT 0.3 mg/dL (0.0-0.4); BILIRUBIN,TOTAL 0.6 mg/dL (0.2-1.3); BLOOD UREA NITROGEN 9 mg/dL (7-20); CALCIUM 9.4 mg/dL (8.4-10.2); CARBON DIOXIDE 35 mmol/L (22-30); CHLORIDE 98 mmol/L (98-107); GLUCOSE 133 mg/dL (75-110); POTASSIUM 3.8 mmol/L (3.6-5.0); TOTAL PROTEIN 7.3 g/dL (6.3-8.2)
[2020-02-23 18:50] LABS: ACETAMINOPHEN < 10 ug/mL (10-30); ALCOHOL < 10 mg/dL (NONE DETECTED); ANION GAP 3 (5-19); SALICYLATE < 1.0 mg/dL (2.0-20.0)
--- NOTE | 2020-02-23 18:54 | PSYCHOLOGICAL NOTE ---
Psych Note - Psych Note Date seen by psych provider: 02/22/50 Time seen by psych provider: 18:35 Psych Note: Reason for Consult: possible overdose [id number] Patient is a 59 year old female who was admitted to the ED via EMS and petitioned for IVC. She was unable to participate in evaluation. When asked where she was, she stated [place], and besides that was saying words that were unclear and did not make sense. She was unable to report what medication she ingested. Nurse reports EMS reported Xanax was refilled yesterday for 30 pills and today only 17 pills remained in the bottle. Patient not alert and oriented to self, person, place, time or situation. Mood confused. She did not engage appropriately. Clinical Presentation: under the influence Impression\plan: Patient is recommended for continued overnight mental health observation. She was unable to participate in evaluation and will be re- evaluated tomorrow when she is alert and oriented. Dr. Bragg was consulted to care management of this patient; attending physicians in agreement with recommendations and disposition.
[2020-02-23 18:57] LABS: VENOUS BLOOD BASE EXCESS 5.8 mmol/L; VENOUS BLOOD HCO3 32.3 mmol/L (20-32); VENOUS BLOOD PCO2 53.4 mmHg (35-63); VENOUS BLOOD PH 7.4 (7.30-7.42)
[2020-02-23 19:05] LABS: APPEARANCE,URINE SLIGHTLY-CLOUDY; BILIRUBIN,URINE NEGATIVE (NEGATIVE); COLOR,URINE YELLOW; GLUCOSE, URINE NEGATIVE (NEGATIVE); KETONES,URINE TRACE mg/dL (NEGATIVE); LEUKOCYTE ESTERASE,URINE SMALL (NEGATIVE); NITRITE,URINE NEGATIVE (NEGATIVE); PROTEIN,URINE 100 mg/dL (NEGATIVE); URINE SPECIFIC GRAVITY 1.015
[2020-02-23 19:24] LABS: URINE BARBITURATES SCREEN NEGATIVE; URINE COCAINE SCREEN NEGATIVE; URINE MARIJUANA (THC) SCREEN NEGATIVE; URINE METHADONE SCREEN NEGATIVE; URINE PHENCYCLIDINE SCREEN NEGATIVE
[2020-02-23 19:36] LABS: URINE AMPHETAMINES SCREEN UNCONFIRMED POSITIVE; URINE BENZODIAZEPINES SCREEN UNCONFIRMED POSITIVE
--- NOTE | 2020-02-23 19:37 | EKG REPORT ---
SEVERITY:- ABNORMAL ECG - SINUS RHYTHM FIRST DEGREE AV BLOCK PROBABLE LEFT ATRIAL ABNORMALITY PROBABLE INFERIOR INFARCT, OLD : Confirmed by: Amy Mendieta MD 23-Feb-2020 19:36:27
--- NOTE | 2020-02-23 20:05 | RADIOLOGY REPORT (SQ) ---
EXAM DESCRIPTION: CT HEAD WITHOUT IMAGES COMPLETED DATE/TIME: 02/23/2020 7:53 pm REASON FOR STUDY: ams COMPARISON: 11/21/2018 TECHNIQUE: Axial images acquired through the brain without intravenous contrast. Images reviewed wi th bone, brain and subdural windows. Additional sagittal and coronal reconstructions were generated. Images stored on PACS. All CT scanners at this facility use dose modulation, iterative reconstruction, and/or weight based d osing when appropriate to reduce radiation dose to as low as reasonably achievable (ALARA). [facility]: Dose Right [facility]: CareDose [facility]: Dose Right [facility]: Teradose 4D [facility]: Smart Mobile [employer] RADIATION DOSE: CT Rad equipment meets quality standard of care and radiation dose reduction techniq ues were employed. CTDIvol: 53.2 mGy. DLP: 1124 mGy-cm. mGy. LIMITATIONS: None. FINDINGS: VENTRICLES: Normal size and contour. CEREBRUM: No masses. No hemorrhage. No midline shift. No evidence for acute infarction. Normal gra y/white matter differentiation. No areas of low density in the white matter. CEREBELLUM: No masses. No hemorrhage. No alteration of density. No evidence for acute infarction. EXTRAAXIAL SPACES: No fluid collections. No masses. ORBITS AND GLOBE: No intra- or extraconal masses. Normal contour of globe without masses. CALVARIUM: No fracture. PARANASAL SINUSES: No fluid or mucosal thickening. SOFT TISSUES: No mass or hematoma. OTHER: No other significant finding. IMPRESSION: NORMAL BRAIN CT WITHOUT CONTRAST. EVIDENCE OF ACUTE STROKE: NO. COMMENT: Quality ID # [id number]: Final reports with documentation of one or more dose reduction techniques (e.g., Automated exposure control, adjustment of the mA and/or kV according to patient size, use of iterative reconstruction technique) TECHNICAL DOCUMENTATION: JOB ID: [id number] 2010 [employer]- All Rights Reserved Reading location - IP/workstation name: [email or web address]
[2020-02-23] MEDS: NICARDIPINE HCL RTU, ISO-OS 20 MG/200 ML RTUINJ IV PRN ×2 (21:03→23:32)
[2020-02-24] MEDS ORDERED: MIDAZOLAM HCL 50 MG/100 ML RTUINJ IV PRN (00:54)
[2020-02-24] MEDS ORDERED: ACETAMINOPHEN 650 MG SUPP.RECT PR PRN (00:54)
[2020-02-24] MEDS ORDERED: ONDANSETRON HCL INJ/PF 4 MG/2 ML SDV IV PRN (00:54)
[2020-02-24] MEDS ORDERED: PANTOPRAZOLE SODIUM 40 MG VIAL IV ONE (01:15)
[2020-02-24] MEDS ORDERED: ENALAPRILAT DIHYDRATE INJ/PF 1.25 MG/1 ML SDV IV ONE (01:15)
[2020-02-24] MEDS: RINGERS SOLUTION,LACTATED 1,000 ML IV PRN ×2 (01:33→08:37)
--- NOTE | 2020-02-24 01:49 | CRITICAL CARE ADMISSION REPORT ---
HPI Date:: 02/24/20 Time:: : Reason for ICU Reason:: AMS, HTN Admission Date/Time & PCP: Admission Date/Time: 02/24/20 01:19 Primary Care Provider: WEST NUGENT PA-C HPI: 59 year olf female who presented to the ED today after being found by her significant other with altered mental status. The patient was unable to give any information at this time so all information is obtained from recoreds. Per the ED records the patient may have possibly took too many of her xanax and her urine drug screen was positve for amphetamines. The patient was evaluated by the ED provider and was found to be hypertensive with initial systolic BP greater than 200. A CT scan of the head was completed with negative results. The patient was started on a cardene gtt for BP control and critical care was consulted for admission and managment of this patient. - Diagnosis/Plan (1) Altered mental status Qualifiers: Altered mental status type: unspecified Qualified Code(s): R41.82 - Altered mental status, unspecified Is this a current diagnosis for this admission?: Yes (2) Hypertensive emergency Is this a current diagnosis for this admission?: Yes (3) Polysubstance abuse Is this a current diagnosis for this admission?: Yes Past Medical History Cardiac Medical History: Reports: Hypertension Denies: Atrial Fibrillation, Congestive Heart Failure, Myocardial Infarction, Hyperlipidema Pulmonary Medical History: Reports: Sleep Apnea - NO MACHINE Denies: Asthma, Bronchitis, Pneumonia, Tuberculosis Endocrine Medical History: Reports: Hypothyroidism Renal/ Medical History: Denies: End Stage Renal Disease Musculoskeltal Medical History: Denies: Arthritis Psychiatric Medical History: Reports: Depression, Substance Abuse Denies: Bipolar Disorder, Post Traumatic Stress Disorder Past Surgical History Past Surgical History: Reports: Section - X1, Orthopedic Surgery - Bilateral total knee replacement Denies: Appendectomy, Cholecystectomy, Gastric Bypass Surgery, Hysterectomy, Mastectomy, Tonsillectomy, Tubal Ligation Social/Family History - Social History Lives with: Spouse/Significant other Smoking Status: Unknown if Ever Smoked Hx Recreational Drug Use: Yes Drugs: Other - positive for amphetamine Hx Prescription Drug Abuse: No - Medication/Allergies Home Medications: Alprazolam [Xanax 0.5 mg Tablet] 0.5 mg PO BIDP PRN 08/03/18 Levothyroxine Sodium [Synthroid 0.05 mg Tablet] 50 mcg PO DAILY 06/26/19 Fluticasone Propionate [Flonase Nasal [place] 50 Mcg/[place] 16 gm] 2 sprays NASL DAILY #1 inhaler 08/10/19 Lisinopril 20 mg PO DAILY 08/10/19 Neomy Sulf/Polymyx B Sulf/Hc [Cortisporin Otic Susp] 4 drop LFT_EAR TID #1 bottle 08/10/19 Allergies/Adverse Reactions: No Known Allergies Allergy (Verified 08/10/19 16:12) Review of Systems ROS unobtainable: Due to mental status Physical Exam Vital Signs: Temp Pulse Resp BP Pulse Ox 98.6 F 112 H 24 H 126/79 H 97 02/23/20 17:32 02/23/20 22:32 02/24/20 01:05 02/24/20 01:05 02/24/20 01:05 Intake & Output 02/22/20 02/23/20 02/24/20 06:59 06:59 06:59 Intake Total 248 Balance 248 Weight 54.4 kg Weight/Height Weight 54.4 kg Height 5 ft 6 in General appearance: PRESENT: no acute distress, well-developed, well-nourished Head exam: PRESENT: atraumatic, normocephalic Eye exam: PRESENT: conjunctiva pink, PERRLA Ear exam: PRESENT: normal external ear exam Mouth exam: PRESENT: dry mucosa Neck exam: PRESENT: full ROM Respiratory exam: PRESENT: decreased breath sounds, unlabored Cardiovascular exam: PRESENT: +S1, +S2 Pulses: PRESENT: +2 pedal pulses bilateral GI/Abdominal exam: PRESENT: soft Rectal exam: PRESENT: deferred Extremities exam: PRESENT: full ROM Musculoskeletal exam: PRESENT: full ROM Neurological exam: PRESENT: altered, other - awakens to stimulus but returns to sleep, will not answer questions Skin exam: PRESENT: dry, intact, warm Laboratory/Radiographs Laboratory Results: 02/23/20 18:16 02/23/20 18:16 02/23/20 02/23/20 02/23/20 18:16 18:16 18:41 WBC 7.3 RBC 4.41 Hgb 12.8 Hct 37.7 MCV 85 MCH 29.0 MCHC 33.9 RDW 13.9 Plt Count 265 Seg Neutrophils % 84.6 H VBG pH 7.40 VBG pCO2 53.4 VBG HCO3 32.3 H VBG Base Excess 5.8 Sodium 136.3 L Potassium 3.8 Chloride 98 Carbon Dioxide 35 H Anion Gap 3 L BUN 9 Creatinine 1.08 Est GFR ( Amer) > 60 Glucose 133 H Calcium 9.4 Total Bilirubin 0.6 AST 20 Alkaline Phosphatase 89 Total Protein 7.3 Albumin 3.4 L Urine Color Urine Appearance Urine pH Ur Specific [place] Urine Protein Urine Glucose (UA) Urine Ketones Urine Blood Urine Nitrite Ur Leukocyte Esterase Urine WBC (Auto) Urine RBC (Auto) 02/23/20 18:41 WBC RBC Hgb Hct MCV MCH MCHC RDW Plt Count Seg Neutrophils % VBG pH VBG pCO2 VBG HCO3 VBG Base Excess Sodium Potassium Chloride Carbon Dioxide Anion Gap BUN Creatinine Est GFR ( Amer) Glucose Calcium Total Bilirubin AST Alkaline Phosphatase Total Protein Albumin Urine Color YELLOW Urine Appearance SLIGHTLY-CLOUDY Urine pH 7.0 Ur Specific [place] 1.015 Urine Protein 100 H Urine Glucose (UA) NEGATIVE Urine Ketones TRACE H Urine Blood SMALL H Urine Nitrite NEGATIVE Ur Leukocyte Esterase SMALL H Urine WBC (Auto) 6 Urine RBC (Auto) 9 Impressions: Head CT 02/23/20 00:00 IMPRESSION: NORMAL BRAIN CT WITHOUT CONTRAST. EVIDENCE OF ACUTE STROKE: NO. All labs, radiographs, diagnostic studies and EKGs were personally reviewed: Yes In addition, reports of radiographic and diagnostic studies were read: Yes Critical Time Critical Time (minutes): 55 -: The care of a critically ill patient is dynamic. This note represents a static moment in the admission process. Orders and treatments may be given simultaneously and urgently, and time is not commissary representative of the treatment process. This patient requires Critical Care secondary to life threatening organ or limb dysfunction. Without Critical Care services, the patient is at risk for increased mortality and morbidity.
[2020-02-24] MEDS ORDERED: LISINOPRIL 10 MG TABLET PO ONE (03:15)
[2020-02-24] MEDS ORDERED: AMLODIPINE BESYLATE 5 MG TABLET PO ONE ×2 (03:15→16:40)
[2020-02-24] MEDS ORDERED: ENALAPRILAT DIHYDRATE INJ/PF 1.25 MG/1 ML SDV IV SCH (06:00)
[2020-02-24] MEDS: HEPARIN SOD (PORCINE) 5,000 UNIT/ML 1 ML VIAL SUBCUT SCH ×3 (06:01→22:55)
[2020-02-24 06:49] LABS: ABSOLUTE BASOPHILS # (AUTO) 0.1 10^3/uL (0.0-0.2); ABSOLUTE LYMPHOCYTES (AUTO) 1.7 10^3/uL (0.5-4.7); ABSOLUTE MONOCYTES (AUTO) 0.5 10^3/uL (0.1-1.4); ABSOLUTE NEUT (AUTO) 7.1 10^3/uL (1.7-8.2); BASOPHILS % (AUTO) 0.7 % (0-2); EOSINOPHILS % (AUTO) 0.2 % (0-6); HEMATOCRIT 40.6 % (36.0-47.0); HEMOGLOBIN 13.9 g/dL (12.0-15.5); MEAN CORPUSCULAR HEMOGLOBIN 29.2 pg (27.0-33.4); MEAN CORPUSCULAR HGB CONC 34.1 g/dL (32.0-36.0); MEAN CORPUSCULAR VOLUME 86 fl (80-97); PLATELET COUNT 276 10^3/uL (150-450); RED BLOOD COUNT 4.75 10^6/uL (3.72-5.28); RED CELL DISTRIBUTION WIDTH 14.2 % (11.5-14.0); SEGMENTED NEUTROPHILS % (AUTO) 76.1 % (42-78); TOTAL CELLS COUNTED % (AUTO) 100 %; WHITE BLOOD COUNT 9.3 10^3/uL (4.0-10.5)
[2020-02-24 06:59] LABS: INTERNATIONAL RATION (INR) 0.94; PROTHROMBIN TIME 12.7 SEC (11.4-15.4)
[2020-02-24 07:07] LABS: ALBUMIN 3.5 g/dL (3.5-5.0); ALKALINE PHOSPHATASE 96 U/L (38-126); ANION GAP 5 (5-19); ASPARTATE AMINO TRANSFERASE 22 U/L (14-36); BILIRUBIN,DIRECT 0.3 mg/dL (0.0-0.4); BILIRUBIN,TOTAL 0.8 mg/dL (0.2-1.3); BLOOD UREA NITROGEN 8 mg/dL (7-20); CALCIUM 9.1 mg/dL (8.4-10.2); CARBON DIOXIDE 33 mmol/L (22-30); CHLORIDE 97 mmol/L (98-107); GLUCOSE 98 mg/dL (75-110); PHOSPHORUS 3.4 mg/dL (2.5-4.5); POTASSIUM 3.8 mmol/L (3.6-5.0); TOTAL PROTEIN 7.4 g/dL (6.3-8.2)
[2020-02-24] MEDS: LISINOPRIL 10 MG TABLET PO SCH ×2 (09:58→22:58)
[2020-02-24] MEDS: AMLODIPINE BESYLATE 5 MG TABLET PO SCH ×2 (09:58→22:58)
[2020-02-24] MEDS: PANTOPRAZOLE SODIUM 40 MG VIAL IV SCH ×2 (09:58→22:55)
[2020-02-24] MEDS ORDERED: RINGERS SOLUTION,LACTATED 1,000 ML IV PRN (10:24)
--- NOTE | 2020-02-24 10:30 | PDOC CRITICAL CARE PROG REPORT ---
General Date:: 02/24/20 Events in the past 12 to 24 Hours:: Admitted for decreased LOC and HTN. No events since admission. h/o polysubstance abuse. Reason for ICU Addmission:: AMS, HTN Physical Exam Vital Signs: Temp Pulse Resp BP Pulse Ox 98.1 F 101 H 9 L 132/87 H 96 02/24/20 01:34 02/24/20 01:34 02/24/20 06:20 02/24/20 06:20 02/24/20 07:00 Intake & Output 02/23/20 02/24/20 02/25/20 06:59 06:59 06:59 Intake Total 510 1000 Output Total 250 Balance 260 1000 Weight 54.4 kg Weight/Height Weight 54.4 kg Height 5 ft 6 in Exam: Neuro: Awake, alert, oriented fully. Follows commands. CV: stable, no HTN Resp: no issues, on room air ABD: soft, NT Ext: no edema, MAEx4 Laboratory/Radiographs Laboratory Results: 02/24/20 06:38 02/24/20 06:38 02/23/20 02/23/20 02/23/20 18:16 18:16 18:41 WBC 7.3 RBC 4.41 Hgb 12.8 Hct 37.7 MCV 85 MCH 29.0 MCHC 33.9 RDW 13.9 Plt Count 265 Seg Neutrophils % 84.6 H VBG pH 7.40 VBG pCO2 53.4 VBG HCO3 32.3 H VBG Base Excess 5.8 Sodium 136.3 L Potassium 3.8 Chloride 98 Carbon Dioxide 35 H Anion Gap 3 L BUN 9 Creatinine 1.08 Est GFR ( Amer) > 60 Glucose 133 H Calcium 9.4 Phosphorus Magnesium Total Bilirubin 0.6 AST 20 Alkaline Phosphatase 89 Total Protein 7.3 Albumin 3.4 L Lipase Urine Color Urine Appearance Urine pH Ur Specific [place] Urine Protein Urine Glucose (UA) Urine Ketones Urine Blood Urine Nitrite Ur Leukocyte Esterase Urine WBC (Auto) Urine RBC (Auto) 02/23/20 02/24/20 02/24/20 18:41 06:38 06:38 WBC 9.3 RBC 4.75 Hgb 13.9 Hct 40.6 MCV 86 MCH 29.2 MCHC 34.1 RDW 14.2 H Plt Count 276 Seg Neutrophils % 76.1 VBG pH VBG pCO2 VBG HCO3 VBG Base Excess Sodium 134.9 L Potassium 3.8 Chloride 97 L Carbon Dioxide 33 H Anion Gap 5 BUN 8 Creatinine 0.93 Est GFR ( Amer) > 60 Glucose 98 Calcium 9.1 Phosphorus 3.4 Magnesium 1.7 Total Bilirubin 0.8 AST 22 Alkaline Phosphatase 96 Total Protein 7.4 Albumin 3.5 Lipase 297.6 Urine Color YELLOW Urine Appearance SLIGHTLY-CLOUDY Urine pH 7.0 Ur Specific [place] 1.015 Urine Protein 100 H Urine Glucose (UA) NEGATIVE Urine Ketones TRACE H Urine Blood SMALL H Urine Nitrite NEGATIVE Ur Leukocyte Esterase SMALL H Urine WBC (Auto) 6 Urine RBC (Auto) 9 02/24/20 02/24/20 02/24/20 01:42 06:38 06:38 Troponin I < 0.012 < 0.012 NT-Pro-B Natriuret Pep 1570 H Impressions: Head CT 02/23/20 00:00 IMPRESSION: NORMAL BRAIN CT WITHOUT CONTRAST. EVIDENCE OF ACUTE STROKE: NO. Assessment and Plan - Diagnosis (1) Altered mental status Qualifiers: Altered mental status type: unspecified Qualified Code(s): R41.82 - Altered mental status, unspecified Is this a current diagnosis for this admission?: Yes (2) Hypertensive emergency Is this a current diagnosis for this admission?: Yes (3) Polysubstance abuse Is this a current diagnosis for this admission?: Yes Plan Summary: 59 yo female admitted for decreased loc and HTN. Neuro: AAO fully. H/o polysubstance abuse- needs psych? CV: HTN emergency resolved with Cardene drip---off now, on lisinoprila nd norvasc. Pulm: no issues FEN: decrease MIVF. electrolytes ok. offer diet. Heme/ID: No antbx Renal: no issues, Cr ok Mobilize. Critical Time Critical Time (minutes): 30 Level of Care: ICU -: 1. The care of a critical patient is a dynamic process. This note is a sales service representative synopsis but static in nature. The timeframe for treatments given in order is not necessarily the actual time these treatments may have been done. 2. This patient requires critical care secondary to ongoing requirements for therapy not offered or safe outside the critical care environment. Transfer to a lower level of care will result in altered life or limb morbidity and mortality. 3. Multidisciplinary rounds completed. 4. ABCDE bundle addressed.
--- NOTE | 2020-02-24 11:40 | EKG REPORT ---
SEVERITY:- ABNORMAL ECG - SINUS TACHYCARDIA PROBABLE LEFT ATRIAL ABNORMALITY PROBABLE INFERIOR INFARCT, OLD ANTERIOR INFARCT, AGE INDETERMINATE : Confirmed by: Amy Mendieta MD 24-Feb-2020 11:39:16
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
[2020-02-24] MEDS ORDERED: HYDRALAZINE HCL INJ/PF 20 MG/1 ML SDV IV PRN (17:36)
[2020-02-25] MEDS: LEVOTHYROXINE SODIUM 0.025 MG TABLET PO SCH (05:46)
[2020-02-25] MEDS: HEPARIN SOD (PORCINE) 5,000 UNIT/ML 1 ML VIAL SUBCUT SCH ×3 (05:47→21:44)
[2020-02-25] MEDS: LEVOTHYROXINE SODIUM 0.112 MG TABLET PO SCH (05:47)
[2020-02-25] MEDS ORDERED: (PENDING PHARMACY ID) (Levothyroxine Sodium [Levothyroxine Sodium] 137 MCG Tablet) PO SCH (06:00)
[2020-02-25] MEDS: AMLODIPINE BESYLATE 5 MG TABLET PO SCH ×2 (12:01→21:40)
[2020-02-25] MEDS: LISINOPRIL 10 MG TABLET PO SCH ×2 (12:01→21:40)
[2020-02-25] MEDS: RINGERS SOLUTION,LACTATED 1,000 ML IV PRN (14:30)
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
--- NOTE | 2020-02-25 16:12 | PDOC PROGRESS REPORT ---
Subjective Date:: 02/25/20 Subjective:: Initially admitted to ICU transiently due to hypertensive emergency and transfer red to the medical unit. She is currently under involuntary commitment due to substance abuse secondary to heroine Reason For Visit: AMS, SUBSTANCE ABUSE Physical Exam Vital Signs: Temp Pulse Resp BP Pulse Ox 98.9 F 97 18 145/95 H 100 02/25/20 11:59 02/25/20 11:59 02/25/20 11:59 02/25/20 11:59 02/25/20 11:59 Intake & Output 02/24/20 02/25/20 02/26/20 06:59 06:59 06:59 Intake Total 510 1327 120 Output Total 250 700 500 Balance 260 627 -380 Weight 54.4 kg 54 kg General appearance: PRESENT: no acute distress, thin Head exam: PRESENT: atraumatic, normocephalic Eye exam: PRESENT: conjunctiva pink, EOMI, PERRLA. ABSENT: scleral icterus Ear exam: PRESENT: normal external ear exam Mouth exam: PRESENT: moist, tongue midline Neck exam: ABSENT: carotid bruit, JVD, lymphadenopathy, thyromegaly Respiratory exam: PRESENT: clear to auscultation nidhi, unlabored. ABSENT: rales, rhonchi, wheezes Cardiovascular exam: PRESENT: RRR, +S1, +S2. ABSENT: diastolic murmur, rubs, systolic murmur Pulses: PRESENT: normal dorsalis pedis pul Vascular exam: PRESENT: normal capillary refill GI/Abdominal exam: PRESENT: normal bowel sounds, soft. ABSENT: distended, guarding, mass, organolmegaly, rebound, tenderness Rectal exam: PRESENT: deferred Extremities exam: PRESENT: full ROM. ABSENT: calf tenderness, clubbing, pedal edema Neurological exam: PRESENT: alert, awake, oriented to person, oriented to place, oriented to time, oriented to situation, CN II-XII grossly intact, other - Speech somewhat slow and delayed. ABSENT: motor sensory deficit Psychiatric exam: PRESENT: flat affect, unusual affect. ABSENT: homicidal ideation, suicidal ideation Skin exam: PRESENT: dry, intact, warm. ABSENT: cyanosis, rash Results Laboratory Results: 02/24/20 06:38 02/24/20 06:38 02/24/20 02/24/20 02/24/20 01:42 06:38 06:38 Troponin I < 0.012 < 0.012 NT-Pro-B Natriuret Pep 1570 H 02/24/20 14:55 Troponin I < 0.012 NT-Pro-B Natriuret Pep Impressions: Head CT 02/23/20 00:00 IMPRESSION: NORMAL BRAIN CT WITHOUT CONTRAST. EVIDENCE OF ACUTE STROKE: NO. Assessment and Plan - Diagnosis (1) Acute metabolic encephalopathy Is this a current diagnosis for this admission?: Yes Plan: Likely multifactorial from hypertensive emergency and substance abuse. Patient is still not quite there yet. Her mentation has cleared but she still somewhat foggy and confused (2) Hypertensive emergency Is this a current diagnosis for this admission?: Yes Plan: Blood pressure is improved. We will continue with her current regimen and adjust as needed (3) Polysubstance abuse Is this a current diagnosis for this admission?: Yes Plan: Continue with IVC. Appreciate psychiatry evaluation and input - Plan Summary Summary: Patient is more awake today however still not back to her baseline. She seems a little foggy and confused. She admits to using heroin. She only admits to episodic use. She has been seen by mental health patient is currently under involuntary commitment for substance abuse. Has stated that she does not want to use heroin anymore denies any current suicidal or homicidal ideation. Her affect appears to be flat. Psychiatry suggest to maintain full involuntary commitment. She is not medically cleared yet. Her blood pressure was likely uncontrolled due to the heroin use and is better controlled today. She remains tachycardic - Time Time Spent with patient: 15-24 minutes Medications reviewed and adjusted accordingly: Yes Anticipated Discharge Disposition: Home, Self Care Anticipated Discharge Timeframe: within 72 hours
[2020-02-26] MEDS: HEPARIN SOD (PORCINE) 5,000 UNIT/ML 1 ML VIAL SUBCUT SCH ×3 (05:57→20:59)
[2020-02-26] MEDS: LEVOTHYROXINE SODIUM 0.025 MG TABLET PO SCH (05:57)
[2020-02-26] MEDS: LEVOTHYROXINE SODIUM 0.112 MG TABLET PO SCH (05:57)
[2020-02-26] MEDS: PANTOPRAZOLE SODIUM 20 MG TABLET.DR PO SCH (05:57)
[2020-02-26] MEDS: RINGERS SOLUTION,LACTATED 1,000 ML IV PRN ×2 (05:58→19:16)
[2020-02-26] MEDS: AMLODIPINE BESYLATE 5 MG TABLET PO SCH ×2 (13:00→20:59)
[2020-02-26] MEDS: LISINOPRIL 10 MG TABLET PO SCH ×2 (13:01→20:59)
--- NOTE | 2020-02-26 16:39 | PDOC PROGRESS REPORT ---
Subjective Date:: 02/26/20 Subjective:: Initially admitted to ICU transiently due to hypertensive emergency and transfer red to the medical unit. She is currently under involuntary commitment due to substance abuse secondary to heroine Reason For Visit: AMS, SUBSTANCE ABUSE Physical Exam Vital Signs: Temp Pulse Resp BP Pulse Ox 98.3 F 96 19 143/84 H 100 02/26/20 07:25 02/26/20 07:25 02/26/20 07:25 02/26/20 07:25 02/26/20 07:25 Intake & Output 02/25/20 02/26/20 02/27/20 06:59 06:59 06:59 Intake Total 1327 1480 200 Output Total 700 1850 300 Balance 627 -370 -100 Weight 54 kg 54 kg 51.4 kg General appearance: PRESENT: no acute distress, thin Head exam: PRESENT: atraumatic, normocephalic Eye exam: PRESENT: conjunctiva pink, EOMI, PERRLA. ABSENT: scleral icterus Ear exam: PRESENT: normal external ear exam Mouth exam: PRESENT: tongue midline Neck exam: ABSENT: carotid bruit, JVD, lymphadenopathy, thyromegaly Respiratory exam: PRESENT: clear to auscultation nidhi. ABSENT: rales, rhonchi, wheezes Cardiovascular exam: PRESENT: RRR, +S1, +S2. ABSENT: diastolic murmur, rubs, sy stolic murmur Pulses: PRESENT: normal dorsalis pedis pul Vascular exam: PRESENT: normal capillary refill GI/Abdominal exam: PRESENT: normal bowel sounds, soft. ABSENT: distended, guarding, mass, organolmegaly, rebound, tenderness Rectal exam: PRESENT: deferred Extremities exam: PRESENT: full ROM. ABSENT: calf tenderness, clubbing, pedal edema Neurological exam: PRESENT: alert, awake, oriented to person, oriented to place, oriented to time, oriented to situation, CN II-XII grossly intact, other - She is more engaged today. ABSENT: motor sensory deficit Psychiatric exam: PRESENT: other - Better eye contact. ABSENT: homicidal ideation, suicidal ideation Skin exam: PRESENT: dry, intact, warm. ABSENT: cyanosis, rash Results Laboratory Results: 02/24/20 06:38 02/24/20 06:38 02/24/20 02/24/20 02/24/20 01:42 06:38 06:38 Troponin I < 0.012 < 0.012 NT-Pro-B Natriuret Pep 1570 H 02/24/20 14:55 Troponin I < 0.012 NT-Pro-B Natriuret Pep Impressions: Head CT 02/23/20 00:00 IMPRESSION: NORMAL BRAIN CT WITHOUT CONTRAST. EVIDENCE OF ACUTE STROKE: NO. Assessment and Plan - Diagnosis (1) Acute metabolic encephalopathy Is this a current diagnosis for this admission?: Yes Plan: Likely multifactorial from hypertensive emergency and substance abuse. Patient is still not quite there yet. Her mentation has cleared but she still somewhat foggy and confused improved compared to the last few days (2) Hypertensive emergency Is this a current diagnosis for this admission?: Yes (3) Polysubstance abuse Is this a current diagnosis for this admission?: Yes (4) Protein calorie malnutrition Qualifiers: Protein-calorie malnutrition severity: moderate Qualified Code(s): E44.0 - Moderate protein-calorie malnutrition Is this a current diagnosis for this admission?: Yes Plan: Patient is underweight with a BMI of 18 likely from nutritional deficits - Plan Summary Summary: Patient is more awake today however still not back to her baseline. She seems a little foggy and confused. She admits to using heroin. She only admits to episodic use. She has been seen by mental health patient is currently under involuntary commitment for substance abuse. Has stated that she does not want to use heroin anymore denies any current suicidal or homicidal ideation. Her affect appears to be flat. Psychiatry suggest to maintain full involuntary commitment. She is not medically cleared yet. Her blood pressure was likely uncontrolled due to the heroin use and is better controlled today. She remains tachycardic 02/25 patient's clinical status appears to be improved. She appears to be more engaged and interactive today. Her blood pressure chills improved. If she continues to be stable and her mentation improves she may be cleared from the medical standpoint within the next 24 hours. I did discuss with her daughter and informed her of my assessment - Time Time Spent with patient: 15-24 minutes Medications reviewed and adjusted accordingly: Yes Anticipated Discharge Disposition: Psych Hospital/Unit Anticipated Discharge Timeframe: within 48 hours
--- NOTE | 2020-02-26 20:00 | XCELERA REPORT ---
[address] [address] Transthoracic Echocardiogram Report Name: SHELL HO Age: 59 yrs Gender: Female : 1960 Patient Status: Inpatient Patient Location: [address] [place] [address] Study Date: 02/26/2020 06:17 PM Height: 66 in Weight: 113 lb BSA: 1.6 m2 Procedure: A complete two-dimensional transthoracic echocardiogram was performed (2D, M-mode, spectral and color flow Doppler). The study was technically difficult with many images being suboptimal in quality. Reason For Study: Elevated BNP, hypertension Ordering Physician: CHERIE CAMPBELL Performed By: Yodit Garcia Interpretation Summary LEFT VENTRICLE: LV Systolic function: LVEF is felt to be within normal limits. Best estimate is approximately LVEF is 60 to 65%. LV Diastolic Function: Grade II diastolic dysfunction noted. Wall motion: No definite regional wall motion abnormalities are noted. Left ventricular chamber size: is within normal limit. Left ventricular wall thickness: is increased indicative of Mild LVH. RIGHT VENTRICLE: RV systolic function: is felt to be within normal limit. Right Ventricle Size: is within normal limits. LEFT ATRIUM size: wnl. RIGHT ATRIUM size: is within normal limit. INTER ATRIAL SEPTUM: No definite atrial septal defect noted however a small PFO could be missed. AORTIC ROOT: seems to be within normal limits. ASCENDING AORTA: is not well visualized. INFERIOR VENA CAVA: was not well visualized. VALVES: MITRAL VALVE: Leaflets are mildly thickened. Mobility seems to be within normal limits. Mitral Regurgitation: Trace mitral regurgitation is noted. Mitral Stenosis: No mitral stenosis noted. Mitral valve prolapse: none noted. AORTIC VALVE: seems to be trileaflet with mild thickening but adequate excursion. Aortic stenosis: No aortic stenosis noted. Aortic regurgitation: No aortic incompetence noted. TRICUSPID VALVE: mobility and structures within normal limit. Tricuspid stenosis: no tricuspid stenosis noted. Tricuspid regurgitation: Trace tricuspid regurgitation noted. Estimated RVSP: cannot be accurately commented upon but possibly at upper limit of normal. PULMONARY VALVE: was not well visualized but no significant abnormalities suspected. Pulmonary stenosis: no pulmonary stenosis noted. Pulmonary regurgitation: no significant pulmonary regurgitation noted. MASSES AND THROMBUS: No definite intracardiac thrombus or masses are noted. PERICARDIUM: No pericardial effusion was noted. IMPRESSION: 1. Normal LVEF. 2. Mild LVH noted. 3. Grade II [mild] Diastolic Dysfunction noted. 4. No significant valvular stenosis or regurgitation noted. MMode/2D Measurements & Calculations RVDd: 3.1 cm LVIDd: 4.5 cm FS: 44.6 % Ao root diam: 3.5 cm IVSd: 0.72 cm LVIDs: 2.5 cm EDV(Teich): 91.7 ml Ao root area: 9.6 cm2 LVPWd: 1.2 cm ESV(Teich): 22.0 ml LA dimension: 2.9 cm EF(Teich): 76.0 % Doppler Measurements & Calculations MV E max ginger: MV P1/2t max ginger: Ao V2 max: LV V1 max P.3 cm/sec 93.5 cm/sec 152.6 cm/sec 9.7 mmHg MV A max ginger: MV P1/2t: 89.5 msec Ao max PG: LV V1 max: 79.6 cm/sec MVA(P1/2t): 2.5 cm2 9.3 mmHg 155.7 cm/sec MV E/A: 0.90 MV dec slope: 305.9 cm/sec2 MV dec time: 0.38 sec PA V2 max: MV P1/2t-pr_phl: 80.8 cm/sec 89.5 msec PA max P.6 mmHg : CHERIE CAMPBELL Shyamal
--- NOTE | 2020-02-26 22:12 | CDI QUERY ---
CDI Query CDI Review: We are seeking further clarification of documentation to reflect the severity of illness of your patient. Per Mental Health Consultation: Accidental Heroin Overdose (per patient report) Per Progress Notes: Acute metabolic encephalopathy Is this a current diagnosis for this admission?: Yes Plan: Likely multifactorial from hypertensive emergency and substance abuse. Patient is still not quite there yet. Her mentation has cleared but she still somewhat foggy and confused improved compared to the last few days Based on your medical judgement, can you further clarify in the Progress Notes and carry through the Discharge Summary: Acute metabolic encephalopathy likely secondary to heroin overdose Unable to determine Other Thank you for your consideration. ALVA Charles RN Clinical Firmware Developer Physician Advisor [email or web address]
[2020-02-27] MEDS: PANTOPRAZOLE SODIUM 20 MG TABLET.DR PO SCH (05:24)
[2020-02-27] MEDS: LEVOTHYROXINE SODIUM 0.025 MG TABLET PO SCH (05:25)
[2020-02-27] MEDS: LEVOTHYROXINE SODIUM 0.112 MG TABLET PO SCH (05:25)
[2020-02-27] MEDS: HEPARIN SOD (PORCINE) 5,000 UNIT/ML 1 ML VIAL SUBCUT SCH ×3 (05:25→22:30)
[2020-02-27] MEDS: AMLODIPINE BESYLATE 5 MG TABLET PO SCH ×2 (11:00→22:31)
[2020-02-27] MEDS: LISINOPRIL 10 MG TABLET PO SCH ×2 (11:00→22:30)
--- NOTE | 2020-02-27 11:51 | PDOC PROGRESS REPORT ---
Subjective Date:: 02/27/20 Subjective:: Initially admitted to ICU transiently due to hypertensive emergency and transfer red to the medical unit. She is currently under involuntary commitment due to substance abuse secondary to heroin. Patient's mentation appears to be improving daily. She is definitely less confused and appears more focused with eye contact. Reason For Visit: AMS, SUBSTANCE ABUSE Physical Exam Vital Signs: Temp Pulse Resp BP Pulse Ox 98.7 F 74 17 120/68 100 02/27/20 08:19 02/27/20 08:19 02/27/20 08:19 02/27/20 08:19 02/27/20 08:19 Intake & Output 02/26/20 02/27/20 02/28/20 06:59 06:59 06:59 Intake Total 1480 1898 Output Total 1850 500 Balance -370 1398 Weight 54 kg 53.9 kg General appearance: PRESENT: no acute distress, thin Head exam: PRESENT: atraumatic, normocephalic Eye exam: PRESENT: conjunctiva pink, EOMI, PERRLA. ABSENT: scleral icterus Mouth exam: PRESENT: moist, tongue midline Neck exam: ABSENT: carotid bruit, JVD, lymphadenopathy, thyromegaly Respiratory exam: PRESENT: clear to auscultation nidhi. ABSENT: rales, rhonchi, wheezes Cardiovascular exam: PRESENT: RRR, +S1, +S2. ABSENT: diastolic murmur, rubs, systolic murmur Pulses: PRESENT: normal dorsalis pedis pul Vascular exam: PRESENT: normal capillary refill GI/Abdominal exam: PRESENT: normal bowel sounds, soft. ABSENT: distended, guarding, mass, organolmegaly, rebound, tenderness Rectal exam: PRESENT: deferred Extremities exam: PRESENT: full ROM. ABSENT: calf tenderness, clubbing, pedal edema Neurological exam: PRESENT: alert, awake, oriented to person, oriented to place, oriented to time, oriented to situation, CN II-XII grossly intact. ABSENT: motor sensory deficit Psychiatric exam: PRESENT: appropriate affect, normal mood. ABSENT: homicidal ideation, suicidal ideation Skin exam: PRESENT: dry, intact, warm. ABSENT: cyanosis, rash Results Laboratory Results: 02/24/20 06:38 02/24/20 06:38 02/24/20 02/24/20 02/24/20 01:42 06:38 06:38 Troponin I < 0.012 < 0.012 NT-Pro-B Natriuret Pep 1570 H 02/24/20 14:55 Troponin I < 0.012 NT-Pro-B Natriuret Pep Impressions: Head CT 02/23/20 00:00 IMPRESSION: NORMAL BRAIN CT WITHOUT CONTRAST. EVIDENCE OF ACUTE STROKE: NO. Assessment and Plan - Diagnosis (1) Acute metabolic encephalopathy Is this a current diagnosis for this admission?: Yes Plan: Likely multifactorial from hypertensive emergency and substance abuse. Patient is still not quite there yet. Her mentation has cleared but she still somewhat foggy and confused improved compared to the last few days 02/26 Acute metabolic encephalopathy likely secondary to combination of hypertensive emergency and heroin abuse. Likely this appears to be clearing and it appears patient is close to her baseline (2) Hypertensive emergency Is this a current diagnosis for this admission?: Yes Plan: Blood pressure is improved. We will continue with her current regimen and adjust as needed 02/26 blood pressure continues to be controlled. We will continue on current regimen (3) Polysubstance abuse Is this a current diagnosis for this admission?: Yes Plan: Patient admits to a heroin abuse. Appreciate psychiatry evaluation and input Plan is for transfer to an inpatient rehab unit when she is medically cleared (4) Protein calorie malnutrition Qualifiers: Protein-calorie malnutrition severity: moderate Qualified Code(s): E44.0 - Moderate protein-calorie malnutrition Is this a current diagnosis for this admission?: Yes Plan: Patient is underweight with a BMI of 18 likely from nutritional deficits Continue nutritional supplement - Plan Summary Summary: Patient is more awake today however still not back to her baseline. She seems a little foggy and confused. She admits to using heroin. She only admits to episodic use. She has been seen by mental health patient is currently under involuntary commitment for substance abuse. Has stated that she does not want t o use heroin anymore denies any current suicidal or homicidal ideation. Her affect appears to be flat. Psychiatry suggest to maintain full involuntary commitment. She is not medically cleared yet. Her blood pressure was likely uncontrolled due to the heroin use and is better controlled today. She remains tachycardic 02/25 patient's clinical status appears to be improved. She appears to be more engaged and interactive today. Her blood pressure chills improved. If she continues to be stable and her mentation improves she may be cleared from the medical standpoint within the next 24 hours. I did discuss with her daughter and informed her of my assessment 02/26 patient is medically cleared as she has remained normotensive and her mental function is improved. She has been hemodynamically stable. I have conveyed this information to patient's daughter and sister as well as to case isabell alan and psych. The plan is for arrangements for an inpatient facility for substance abuse rehabilitation - Time Time Spent with patient: 15-24 minutes Medications reviewed and adjusted accordingly: Yes Anticipated Discharge Disposition: Psych Hospital/Unit - Substance abuse Anticipated Discharge Timeframe: when bed available
--- NOTE | 2020-02-27 18:01 | PSYCHOLOGICAL NOTE ---
Psych Note - Psych Note Date seen by psych provider: 02/27/20 Psych Note: 1754- Pending Negative COVID--[facility] has accepted the patient for admission on 02/28/2020 any time after 9am. Accepting doctor is Dr. Al Pal. Call report number is [phone]. Patient will be going to [facility].
[2020-02-27] MEDS: CEPHALEXIN 500 MG CAPSULE PO SCH ×2 (18:11→22:30)
[2020-02-28] MEDS: HEPARIN SOD (PORCINE) 5,000 UNIT/ML 1 ML VIAL SUBCUT SCH (05:40)
[2020-02-28] MEDS: PANTOPRAZOLE SODIUM 20 MG TABLET.DR PO SCH (06:20)
[2020-02-28] MEDS: CEPHALEXIN 500 MG CAPSULE PO SCH (06:20)
[2020-02-28] MEDS: LEVOTHYROXINE SODIUM 0.112 MG TABLET PO SCH (06:20)
[2020-02-28] MEDS: LEVOTHYROXINE SODIUM 0.025 MG TABLET PO SCH (06:20)
[2020-02-28] MEDS: AMLODIPINE BESYLATE 5 MG TABLET PO SCH (09:25)
[2020-02-28] MEDS: LISINOPRIL 10 MG TABLET PO SCH (09:26)
[2020-02-28 13:06] VITALS: BP 127/71
--- NOTE | 2020-02-28 15:31 | PDOC DISCHARGE SUMMARY ---
Impression - Admit/DC Date/PCP Admission Date/Primary Care Provider: 02/24/20 01:19 WE[facility] NUGENT PA-C Discharge Date: 02/28/20 - Discharge Diagnosis (1) Acute metabolic encephalopathy Is this a current diagnosis for this admission?: Yes (2) Hypertensive emergency Is this a current diagnosis for this admission?: Yes (3) Polysubstance abuse Is this a current diagnosis for this admission?: Yes (4) Protein calorie malnutrition Is this a current diagnosis for this admission?: Yes - Additional Information Resuscitation Status: Full Code Discharge Diet: Cardiac Discharge Activity: Activity As Tolerated Referrals: COREY KAUFFMAN [Other] Home Medications: RX: Alprazolam [Xanax 0.5 mg Tablet] 1 mg PO BIDP PRN 08/03/18 RX: Lisinopril 10 mg PO DAILY 08/10/19 Famotidine [Pepcid] 40 mg PO Q6AM 02/24/20 Fluticasone Propionate [Flonase Nasal [place] 50 Mcg/[place] 16 gm] 1 sprays NASL QAM 02/24/20 RX: Levothyroxine Sodium 137 mcg PO Q6AM 02/24/20 History of Present Illiness History of Present Illness: SHELL HO is a 59 year old female Patient was brought to the emergency room with altered mental status. She was admitted for hypertensive urgency as well as suspicion of substance abuse. He was initially admitted to the ICU team although was transferred to the medical unit the same day as she improved. Please see admitting history and physical for full details. Hospital Course Hospital Course: Because of an initial systolic blood pressure of more than 200 patient was started on Cardene drip. Her blood pressure gradually improved. She was sent to the medical unit for admission once she was off the antihypertensive drip. She was confused with encephalopathy thought to be secondary to her encephalopathy as well as heroine abuse which patient admitted to. She was subsequently seen by psychiatry and patient was placed under involuntary commitment. Over the next few days her blood pressure became much better controlled and her confusion cleared and so patient was deemed medically stable. It is felt that she will benefit from a rehabilitation stay so she is being discharged to short-term rehabilitation [facility] due to her substance abuse Acute metabolic encephalopathy is likely a combination of hypertensive emergency as well as heroin abuse. This has improved with control of hypertension Hypertensive emergency likely precipitated by heroine abuse Physical Exam Vital Signs: Temp Pulse Resp BP Pulse Ox 97.5 F 72 20 127/71 H 100 02/28/20 11:15 02/28/20 11:15 02/28/20 11:15 02/28/20 11:15 02/28/20 11:15 Intake & Output 02/27/20 02/28/20 02/29/20 06:59 06:59 06:59 Intake Total 1898 1090 350 Output Total 500 750 Balance 1398 340 350 Weight 53.9 kg 53.4 kg 52.7 kg General appearance: PRESENT: no acute distress, thin Head exam: PRESENT: atraumatic, normocephalic Eye exam: PRESENT: conjunctiva pink, EOMI, PERRLA. ABSENT: scleral icterus Mouth exam: PRESENT: moist, tongue midline Neck exam: ABSENT: carotid bruit, JVD, lymphadenopathy, thyromegaly Respiratory exam: PRESENT: clear to auscultation nidhi, unlabored. ABSENT: rales, rhonchi, wheezes Cardiovascular exam: PRESENT: RRR, +S1, +S2. ABSENT: diastolic murmur, rubs, systolic murmur Pulses: PRESENT: normal dorsalis pedis pul Vascular exam: PRESENT: normal capillary refill GI/Abdominal exam: PRESENT: normal bowel sounds, soft. ABSENT: distended, guarding, mass, organolmegaly, rebound, tenderness Rectal exam: PRESENT: deferred Extremities exam: PRESENT: full ROM. ABSENT: calf tenderness, clubbing, pedal edema Neurological exam: PRESENT: alert, awake, oriented to person, oriented to place, oriented to time, oriented to situation, CN II-XII grossly intact. ABSENT: motor sensory deficit Psychiatric exam: PRESENT: appropriate affect, normal mood. ABSENT: homicidal ideation, suicidal ideation Skin exam: PRESENT: dry, intact, warm. ABSENT: cyanosis, rash Results Laboratory Results: WBC 9.3 10^3/uL (4.0-10.5) 02/24/20 06:38 RBC 4.75 10^6/uL (3.72-5.28) 02/24/20 06:38 Hgb 13.9 g/dL (12.0-15.5) 02/24/20 06:38 Hct 40.6 % (36.0-47.0) 02/24/20 06:38 MCV 86 fl (80-97) 02/24/20 06:38 MCH 29.2 pg (27.0-33.4) 02/24/20 06:38 MCHC 34.1 g/dL (32.0-36.0) 02/24/20 06:38 RDW 14.2 % (11.5-14.0) H 02/24/20 06:38 Plt Count 276 10^3/uL (150-450) 02/24/20 06:38 Lymph % (Auto) 18.0 % (13-45) 02/24/20 06:38 [place] % (Auto) 5.0 % (3-13) 02/24/20 06:38 Eos % (Auto) 0.2 % (0-6) 02/24/20 06:38 Baso % (Auto) 0.7 % (0-2) 02/24/20 06:38 Absolute Neuts (auto) 7.1 10^3/uL (1.7-8.2) 02/24/20 06:38 Absolute Lymphs (auto) 1.7 10^3/uL (0.5-4.7) 02/24/20 06:38 Absolute Monos (auto) 0.5 10^3/uL (0.1-1.4) 02/24/20 06:38 Absolute Eos (auto) 0.0 10^3/uL (0.0-0.6) 02/24/20 06:38 Absolute Basos (auto) 0.1 10^3/uL (0.0-0.2) 02/24/20 06:38 Seg Neutrophils % 76.1 % (42-78) 02/24/20 06:38 PT 12.7 SEC (11.4-15.4) 02/24/20 06:38 INR 0.94 02/24/20 06:38 VBG pH 7.40 (7.30-7.42) 02/23/20 18:41 VBG pCO2 53.4 mmHg (35-63) 02/23/20 18:41 VBG HCO3 32.3 mmol/L (20-32) H 02/23/20 18:41 VBG Base Excess 5.8 mmol/L 02/23/20 18:41 Sodium 134.9 mmol/L (137-145) L 02/24/20 06:38 Potassium 3.8 mmol/L (3.6-5.0) 02/24/20 06:38 Chloride 97 mmol/L (98-107) L 02/24/20 06:38 Carbon Dioxide 33 mmol/L (22-30) H 02/24/20 06:38 Anion Gap 5 (5-19) 02/24/20 06:38 BUN 8 mg/dL (7-20) 02/24/20 06:38 Creatinine 0.93 mg/dL (0.52-1.25) 02/24/20 06:38 Est GFR ( Amer) > 60 (>60) 02/24/20 06:38 Est GFR (MDRD) Non-Af > 60 (>60) 02/24/20 06:38 Glucose 98 mg/dL (75-110) 02/24/20 06:38 Calcium 9.1 mg/dL (8.4-10.2) 02/24/20 06:38 Phosphorus 3.4 mg/dL (2.5-4.5) 02/24/20 06:38 Magnesium 1.7 mg/dL (1.6-2.3) 02/24/20 06:38 Total Bilirubin 0.8 mg/dL (0.2-1.3) 02/24/20 06:38 Direct Bilirubin 0.3 mg/dL (0.0-0.4) 02/24/20 06:38 Neonat Total Bilirubin Not Reportable 02/24/20 06:38 Neonat Direct Bilirubin Not Reportable 02/24/20 06:38 Neonat Indirect Bili Not Reportable 02/24/20 06:38 AST 22 U/L (14-36) 02/24/20 06:38 ALT 9 U/L (<35) 02/24/20 06:38 Alkaline Phosphatase 96 U/L (38-126) 02/24/20 06:38 Troponin I < 0.012 ng/mL 02/24/20 14:55 NT-Pro-B Natriuret Pep 1570 pg/mL (<125) H 02/24/20 06:38 Total Protein 7.4 g/dL (6.3-8.2) 02/24/20 06:38 Albumin 3.5 g/dL (3.5-5.0) 02/24/20 06:38 Lipase 297.6 U/L (23-300) 02/24/20 06:38 Urine Color YELLOW 02/23/20 18:41 Urine Appearance SLIGHTLY-CLOUDY 02/23/20 18:41 Urine pH 7.0 (5.0-9.0) 02/23/20 18:41 Ur Specific [place] 1.015 02/23/20 18:41 Urine Protein 100 mg/dL (NEGATIVE) H 02/23/20 18:41 Urine Glucose (UA) NEGATIVE mg/dL (NEGATIVE) 02/23/20 18:41 Urine Ketones TRACE mg/dL (NEGATIVE) H 02/23/20 18:41 Urine Blood SMALL (NEGATIVE) H 02/23/20 18:41 Urine Nitrite NEGATIVE (NEGATIVE) 02/23/20 18:41 Urine Bilirubin NEGATIVE (NEGATIVE) 02/23/20 18:41 Urine Urobilinogen 2.0 mg/dL (<2.0) H 02/23/20 18:41 Ur Leukocyte Esterase SMALL (NEGATIVE) H 02/23/20 18:41 Urine WBC (Auto) 6 /HPF 02/23/20 18:41 Urine RBC (Auto) 9 /HPF 02/23/20 18:41 Urine Bacteria (Auto) 1+ /HPF 02/23/20 18:41 Squamous Epi Cells Auto 1 /HPF 02/23/20 18:41 Urine Mucus (Auto) RARE /LPF 02/23/20 18:41 Urine Ascorbic Acid NEGATIVE (NEGATIVE) 02/23/20 18:41 Salicylates < 1.0 mg/dL (2.0-20.0) L 02/23/20 18:16 Urine Opiates Screen UNCONFIRMED POSITIVE 02/23/20 18:41 Urine Methadone Screen NEGATIVE 02/23/20 18:41 Acetaminophen < 10 ug/mL (10-30) L 02/23/20 18:16 Ur Barbiturates Screen NEGATIVE 02/23/20 18:41 Ur Phencyclidine Scrn NEGATIVE 02/23/20 18:41 Ur Amphetamines Screen UNCONFIRMED POSITIVE 02/23/20 18:41 U Benzodiazepines Scrn UNCONFIRMED POSITIVE 02/23/20 18:41 Urine Cocaine Screen NEGATIVE 02/23/20 18:41 U Marijuana (THC) Screen NEGATIVE 02/23/20 18:41 Serum Alcohol < 10 mg/dL (NONE DETECTED) 02/23/20 18:16 Influenza A (RT-PCR) NEGATIVE (NEGATIVE) 02/27/20 20:17 Influenza B (RT-PCR) NEGATIVE (NEGATIVE) 02/27/20 20:17 RSV (RT-PCR) NEGATIVE (NEGATIVE) 02/27/20 20:17 SARS-CoV-2 Rap RNA(RT-PCR) NEGATIVE (NEGATIVE) 02/27/20 20:17 02/24/20 02/24/20 02/24/20 01:42 06:38 06:38 Troponin I < 0.012 < 0.012 NT-Pro-B Natriuret Pep 1570 H 02/24/20 14:55 Troponin I < 0.012 NT-Pro-B Natriuret Pep Impressions: Head CT 02/23/20 00:00 IMPRESSION: NORMAL BRAIN CT WITHOUT CONTRAST. EVIDENCE OF ACUTE STROKE: NO. Stroke Is this a Stroke Patient?: No Acute Heart Failure Is this a Heart Failure Patient?: No
== END 2020-02-28 13:02 | DRG 917 ==
LOC: ER 17:32 → EH 02-24 01:19 → 4W 02-24 17:08
PROVIDERS: ADMIT Anesthesiology; ATTEND Internal Medicine
PROC: B24BZZ4 Ultrasonography of Heart with Aorta, Transesophageal (ICD-10-PCS; principal; 2020-02-26)
DX: T40.1X1A Poisoning by heroin, accidental (unintentional), initial encounter (principal); G92 Toxic encephalopathy; I16.1 Hypertensive emergency; E44.0 Moderate protein-calorie malnutrition; Z68.1 Body mass index [BMI] 19.9 or less, adult; T42.4X1A Poisoning by benzodiazepines, accidental (unintentional), initial encounter; Y92.9 Unspecified place or not applicable; I10 Essential (primary) hypertension; F11.10 Opioid abuse, uncomplicated; Z20.822 Contact with and (suspected) exposure to COVID-19; E03.9 Hypothyroidism, unspecified; Z96.653 Presence of artificial knee joint, bilateral; F32.9 Major depressive disorder, single episode, unspecified; Z79.890 Hormone replacement therapy; Z79.899 Other long term (current) drug therapy
CPT/HCPCS: 36415; 70450; 80053; 80307; 81001; 82803; 83690; 83735; 83880; 84100; 84484; 85025; 85610; 87040; 93005; 93010; 93306; 96365; 96366; 99285; 99291; 0241U; C9113; C9803; J1644; J3490; J7120